=== PATIENT | male | born 1990 | race African-American/Black ===

== ENCOUNTER 2018-06-28 23:11 | Emergency (ER) | payer SELFPAY ==
--- NOTE | 2018-06-28 23:45 | EDM.PDOC ---
ED HPI GENERAL MEDICAL PROBLEM - General Chief Complaint: General Stated Complaint: PT HAS TOOTHACHE Time Seen by Provider: 06/28/18 23:31 - History of Present Illness INITIAL COMMENTS - FREE TEXT/NARRATIVE: HISTORY AND PHYSICAL: History of present illness: The patient is a 28 y/o male who presents with complaints of swelling to the left side of his jaw and pain to that area for the last 1-1/2 months. He says that he had a wisdom tooth removed back in [place] and ever since then he has had pain and swelling to that area which comes and goes. He says that the tooth area and where the tooth was extracted does not hurt him and nothing inside his mouth is causing pain. He says that the pain is mostly on the outside and that the swelling comes and goes. He says that in the morning sometimes there is some fluid and he will manipulated and get some fluid out of it and it will get better and then it seems to keep coming back. He has no systemic complaints of fever chills nausea vomiting and has not followed up for this. It should be noted the patient presented to be seen in the ED with his girlfriend who is also a patient here for an unrelated complaint. His eating and drinking normally and he is only using [id number] pain meds and the pain pills he was given for his tooth extraction when he needs it Review of systems: As per history of present illness and below otherwise all systems reviewed and negative. Past medical history: As per history of present illness and as reviewed below otherwise noncontributory. Surgical history: As per history of present illness and as reviewed below otherwise noncontributory. Social history: No reported history of drug or alcohol abuse. Family history: As per history of present illness and as reviewed below otherwise noncontributory. Physical exam: General: Well-developed well-nourished man who is nontoxic and vital signs are noted by me HEENT: Atraumatic, normocephalic, pupils reactive, negative for conjunctival pallor or scleral icterus, mucous membranes moist, throat clear, neck supple, nontender, trachea midline. Cervical adenopathy or nuchal rigidity and there is no evidence of any dental disease appreciated. At the left lower jaw there is an absence of 217 and there is no soft tissue swelling or gum swelling in this region nor is there any focal swelling or abnormalities seen. At the skin surface of the body and angle of the mandible there is a 3 x 2 cm well demarcated indurated circular-like area which is mobile and rubbery like in texture but not fluctuant. There is tenderness with palpation of this and some erythema which is ill-defined. Lungs: Clear to auscultation, breath sounds equal bilaterally, chest nontender. Heart: S1S2, regular rate and rhythm no overt murmurs Abdomen: Soft, nondistended, nontender. Negative for masses or hepatosplenomegaly. Negative for costovertebral tenderness. Pelvis: Stable nontender. Genitourinary: Deferred. Rectal: Deferred. Extremities: Atraumatic, negative for cords or calf pain. Neurovascular unremarkable. Neuro: Awake, alert, oriented. Cranial nerves II through XII unremarkable. Cerebellum unremarkable. Motor and sensory unremarkable throughout. Exam nonfocal. Diagnostics: [] Therapeutics: [] I discussed with this patient that it is unlikely this is from a dental problem but it is more a soft tissue problem that needs to be treated with antibiotics and followed up by our plastics department. At this point it is not fluctuant and I do not feel incision and drainage is indicated so we'll refer to Dr. Nunez. I advised the patient not to manipulate the area and to use over-the- counter pain management Impression: Left facial cellulitis/recurrent episodic abscess Definitive disposition and diagnosis as appropriate pending reevaluation and review of above. ED ROS GENERAL - Review of Systems Review Of Systems: ROS reveals no pertinent complaints other than HPI. ED EXAM, GENERAL - Physical Exam Exam: See Below (See dictation) Departure - Departure Time of Disposition: 23:44 Disposition: Home, Self-Care 01 Condition: Good Clinical Impression: Cellulitis of face, Abscess of face - Discharge Information Referrals: PCP,None [Primary Care Provider] - Additional Instructions: The following information is given to patients seen in the emergency department who are being discharged to home. This information is to outline your options for follow-up care. We provide all patients seen in our emergency department with a follow-up referral. The need for follow-up, as well as the timing and circumstances, are variable depending upon the specifics of your emergency department visit. If you don't have a primary care physician on staff, we will provide you with a referral. We always advise you to contact your personal physician following an emergency department visit to inform them of the circumstance of the visit and for follow-up with them and/or the need for any referrals to a consulting specialist. The emergency department will also refer you to a specialist when appropriate. This referral assures that you have the opportunity for followup care with a specialist. All of these measure are taken in an effort to provide you with optimal care, which includes your followup. Under all circumstances we always encourage you to contact your private physician who remains a resource for coordinating your care. When calling for followup care, please make the office aware that this follow-up is from your recent emergency room visit. If for any reason you are refused follow-up, please contact the [facility] emergency department at and ask to speak to the emergency department charge nurse. [facility] Specialty clinic-Plastic Surgery and Hand Surgery Professional [address] [id number] Please stop manipulating the area and take antibiotics you have been given tonight, Bactrim, as directed. Please call and schedule a follow-up appointment with our plastic surgeon for further care and evaluation of this and return to ER as needed as discussed. Use [id number] medications or your pain pills that you have at home for pain management.
== END 2018-06-28 23:55 | disposition home or self-care (01) ==
LOC: MW.ED 23:11
DX: L02.01 Cutaneous abscess of face (principal); L03.211 Cellulitis of face
CPT/HCPCS: 99282

== ENCOUNTER 2018-07-26 01:40 | Emergency (ER) | payer SELFPAY ==
[2018-07-26] MEDS ORDERED: Sodium Chloride 0.9% 2.5 ML Syringe FLUSH PRN (01:56)
[2018-07-26] MEDS ORDERED: Ondansetron 4 MG/2 ML SDV IVPUSH ONE (01:56)
[2018-07-26] MEDS ORDERED: Pantoprazole 40 MG Vial IVPUSH ONE (01:56)
[2018-07-26] MEDS ORDERED: Sodium Chloride 0.9% 1,000 ML IV ONE (01:56)
[2018-07-26] MEDS ORDERED: Sodium Chloride 0.9% 10 ML Syringe FLUSH PRN (01:56)
[2018-07-26] MEDS ORDERED: Morphine 2 MG/ML Syringe IVPUSH ONE (01:57)
--- NOTE | 2018-07-26 02:03 | EDM.PDOC ---
ED HPI GENERAL MEDICAL PROBLEM - General Chief Complaint: Gastrointestinal Problem Stated Complaint: VOMITING Time Seen by Provider: 07/26/18 01:48 - History of Present Illness INITIAL COMMENTS - FREE TEXT/NARRATIVE: HISTORY AND PHYSICAL: History of present illness: Patient is a 28-year-old male with a history of HIV positive status who has been on medication and doing very well but he ran out of his meds several months ago and has not been able to get them refilled as it is very challenging to get connected with a specialist. He presents tonight with unrelated complaints of nausea vomiting diarrhea and abdominal pain that started at 7 PM after eating [employer] pizza 2 hours prior. The patient has not had any exotic travel and ate the pizza and says it tasted fine but then about 2 hours later he started getting nausea and then had his first episode of vomiting. He has had a total of 4 episodes of vomiting and one episode of watery diarrhea none of which was black or bloody. He says the prior to eating the pizza he was in his usual state of good health with no systemic complaints of abdominal pain nausea or fever chills chest pain shortness of breath or any other respiratory symptoms and no sore throat. Prior to this he was eating and drinking normally. He says he is very thirsty but he cannot keep anything down. Patient is not dizzy or lightheaded and when I asked him to describe his abdominal discomfort he said it started after the first episode of vomiting and is mostly in the upper abdomen and now it is all over. Review of systems: As per history of present illness and below otherwise all systems reviewed and negative. Past medical history: As per history of present illness and as reviewed below otherwise noncontributory. Surgical history: As per history of present illness and as reviewed below otherwise noncontributory. Social history: No reported history of drug or alcohol abuse. Family history: As per history of present illness and as reviewed below otherwise noncontributory. Physical exam: General: Well-developed well-nourished man who is nontoxic appearing and vital signs are noted by me HEENT: Atraumatic, normocephalic, pupils reactive, negative for conjunctival pallor or scleral icterus, mucous membranes tacky, throat clear, neck supple, nontender, trachea midline. Lungs: Clear to auscultation, breath sounds equal bilaterally, chest nontender. Heart: S1S2, regular rate and rhythm no overt murmurs Abdomen: Soft, nondistended, there is some tympany on percussion and the bowel sounds are hypoactive and there is some diffuse abdominal tenderness more in the upper abdomen without rebound or guarding Negative for masses or hepatosplenomegaly. Negative for costovertebral tenderness. Pelvis: Stable nontender. Genitourinary: Deferred. Rectal: Deferred. Extremities: Atraumatic, full range of motion without defects or deficits Neurovascular unremarkable. Neuro: Awake, alert, oriented. Cranial nerves II through XII unremarkable. Cerebellum unremarkable. Motor and sensory unremarkable throughout. Exam nonfocal. Diagnostics: CBC CMP amylase lipase H. pylori UA Therapeutics: IV fluids Protonix Zofran morphine Patient says he is feeling significantly better and has had not had any nausea or vomiting and has no more abdominal pain. He has not produced any stool here in the ED for sampling. He says he is feeling good and would like to try to go home. He is taking ice chips and I am giving her a popsicle. I will give him Zofran and Bentyl for home and advised him on his diet over the next 24 hours. Impression: Vomiting and diarrhea/abdominal pain improving Definitive disposition and diagnosis as appropriate pending reevaluation and review of above. abdomen Pain Score (Numeric/FACES): 10 - Related Data Allergies Allergy/AdvReac Type Severity Reaction Status Date / Time No Known Allergies Allergy Verified 07/26/18 01:52 Home Meds: Home Meds . [No Known Home Meds] 06/28/18 [History] Past Medical History Cardiovascular History: Reports: None Respiratory History: Reports: Asthma Gastrointestinal History: Reports: None Genitourinary History: Reports: None Musculoskeletal History: Reports: None Neurological History: Reports: None Psychiatric History: Reports: Anxiety, Depression Endocrine/Metabolic History: Reports: None Hematologic History: Reports: None Immunologic History: Reports: HIV Oncologic (Cancer) History: Reports: None Dermatologic History: Reports: None - Infectious Disease History Infectious Disease History: Reports: HIV-Human Immunodeficiency Virus - Past Surgical History Head Surgeries/Procedures: Reports: None HEENT Surgical History: Reports: Oral Surgery Social & Family History - Family History Family Medical History: Noncontributory - Tobacco Use Smoking Status *Q: Never Smoker - Recreational Drug Use Recreational Drug Use: Yes Drug Use in Last 12 Months: Yes Recreational Drug Type: Reports: Marijuana/Hashish Recreational Drug Use Frequency: Socially ED ROS GENERAL - Review of Systems Review Of Systems: ROS reveals no pertinent complaints other than HPI. ED EXAM, GENERAL - Physical Exam Exam: See Below (see dictation) Course - Vital Signs Last Recorded V/S: Last Vital Signs Temp 36.1 C 07/26/18 01:40 Pulse 83 07/26/18 01:40 Resp 18 07/26/18 01:40 BP 125/81 07/26/18 01:40 Pulse Ox 94 L 07/26/18 01:40 - Orders/Labs/Meds Orders: Active Orders 24 hr Category Date Time Status Blood Glucose Check, Bedside [RC] ONETIME Care 07/26/18 01:55 Active CULTURE STOOL + CAMPY+SHIGATOX [RM] Stat Lab 07/26/18 01:56 Ordered UA RFX JOVANI AND CULT IF INDIC [URIN] Stat Lab 07/26/18 01:56 Ordered Sodium Chloride 0.9% [Saline Flush] Med 07/26/18 01:56 Active 10 ml FLUSH ASDIRECTED PRN Sodium Chloride 0.9% [Saline Flush] Med 07/26/18 01:56 Active 2.5 ml FLUSH ASDIRECTED PRN Saline Lock Insert [OM.PC] Stat Oth 07/26/18 01:55 Ordered Medication Orders Sodium Chloride (Saline Flush) 10 ml FLUSH ASDIRECTED PRN PRN Reason: Keep Vein Open Sodium Chloride (Saline Flush) 2.5 ml FLUSH ASDIRECTED PRN PRN Reason: Keep Vein Open Labs: Laboratory Tests 07/26/18 07/26/18 07/26/18 Range/Units 01:55 01:55 01:55 WBC 5.79 (4.0-11.0) K/uL RBC 5.43 (4.50-5.90) M/uL Hgb 15.4 (13.0-17.0) g/dL Hct 45.5 (38.0-50.0) % MCV 83.8 (80.0-98.0) fL MCH 28.4 (27.0-32.0) pg MCHC 33.8 (31.0-37.0) g/dL RDW Std Deviation 37.1 (28.0-62.0) fl RDW Coeff of Freddie 12 (11.0-15.0) % Plt Count 110 L (150-400) K/uL Neut % (Auto) 73.3 (48.0-80.0) % Lymph % (Auto) 19.5 (16.0-40.0) % Candler % (Auto) 5.4 (0.0-15.0) % Eos % (Auto) 1.6 (0.0-7.0) % Baso % (Auto) 0.2 (0.0-1.5) % Neut # (Auto) 4.3 (1.4-5.7) K/uL Lymph # (Auto) 1.1 (0.6-2.4) K/uL Candler # (Auto) 0.3 (0.0-0.8) K/uL Eos # (Auto) 0.1 (0.0-0.7) K/uL Baso # (Auto) 0.0 (0.0-0.1) K/uL Nucleated RBC % 0.0 /100WBC Nucleated RBCs # 0 K/uL Sodium 140 (136-148) mmol/L Potassium 4.1 (3.5-5.1) mmol/L Chloride 104 (98-107) mmol/L Carbon Dioxide 24.9 (21.0-32.0) mmol/L BUN 17 (7.0-18.0) mg/dL Creatinine 1.3 (0.8-1.3) mg/dL Est Cr Clr Drug Dosing 74.90 mL/min Estimated GFR (MDRD) > 60.0 ml/min Glucose 120 H (74-106) mg/dL POC Glucose (60-110) mg/dL Calcium 9.2 (8.5-10.1) mg/dL Total Bilirubin 2.1 H (0.2-1.0) mg/dL AST 105 H (15-37) IU/L ALT 53 (14-63) IU/L Alkaline Phosphatase 70 (46-116) U/L Total Protein 8.8 H (6.4-8.2) g/dL Albumin 4.4 (3.4-5.0) g/dL Globulin 4.4 H (2.6-4.0) g/dL Albumin/Globulin Ratio 1.0 (0.9-1.6) Amylase 74 (25-115) U/L Lipase 93 (73-393) U/L H. pylori IgG Antibody NEGATIVE (NEG) 07/26/18 Range/Units 02:03 WBC (4.0-11.0) K/uL RBC (4.50-5.90) M/uL Hgb (13.0-17.0) g/dL Hct (38.0-50.0) % MCV (80.0-98.0) fL MCH (27.0-32.0) pg MCHC (31.0-37.0) g/dL RDW Std Deviation (28.0-62.0) fl RDW Coeff of Freddie (11.0-15.0) % Plt Count (150-400) K/uL Neut % (Auto) (48.0-80.0) % Lymph % (Auto) (16.0-40.0) % Candler % (Auto) (0.0-15.0) % Eos % (Auto) (0.0-7.0) % Baso % (Auto) (0.0-1.5) % Neut # (Auto) (1.4-5.7) K/uL Lymph # (Auto) (0.6-2.4) K/uL Candler # (Auto) (0.0-0.8) K/uL Eos # (Auto) (0.0-0.7) K/uL Baso # (Auto) (0.0-0.1) K/uL Nucleated RBC % /100WBC Nucleated RBCs # K/uL Sodium (136-148) mmol/L Potassium (3.5-5.1) mmol/L Chloride (98-107) mmol/L Carbon Dioxide (21.0-32.0) mmol/L BUN (7.0-18.0) mg/dL Creatinine (0.8-1.3) mg/dL Est Cr Clr Drug Dosing mL/min Estimated GFR (MDRD) ml/min Glucose (74-106) mg/dL POC Glucose 103 (60-110) mg/dL Calcium (8.5-10.1) mg/dL Total Bilirubin (0.2-1.0) mg/dL AST (15-37) IU/L ALT (14-63) IU/L Alkaline Phosphatase (46-116) U/L Total Protein (6.4-8.2) g/dL Albumin (3.4-5.0) g/dL Globulin (2.6-4.0) g/dL Albumin/Globulin Ratio (0.9-1.6) Amylase (25-115) U/L Lipase (73-393) U/L H. pylori IgG Antibody (NEG) Meds: Medications Generic Name Dose Route Start Last Admin Trade Name Freq PRN Reason Stop Dose Admin Sodium Chloride 10 ml 07/26/18 01:56 Saline Flush FLUSH ASDIRECTED PRN Keep Vein Open Sodium Chloride 2.5 ml 07/26/18 01:56 Saline Flush FLUSH ASDIRECTED PRN Keep Vein Open Discontinued Medications Generic Name Dose Route Start Last Admin Trade Name Freq PRN Reason Stop Dose Admin Sodium Chloride 1,000 mls @ 999 mls/hr 07/26/18 01:56 07/26/18 02:12 Normal Saline IV 07/26/18 02:56 999 mls/hr STAT ONE Administration Sodium Chloride Confirm 07/26/18 02:05 07/26/18 02:21 Normal Saline Administered 07/26/18 02:06 1 mls/hr Dose Administration 20 mls @ as directed .ROUTE .STK-MED ONE Morphine Sulfate 2 mg 07/26/18 01:57 07/26/18 02:17 Morphine IVPUSH 07/26/18 01:58 2 mg ONETIME ONE Administration Ondansetron HCl 4 mg 07/26/18 01:56 07/26/18 02:14 Zofran IVPUSH 07/26/18 01:57 4 mg ONETIME ONE Administration Pantoprazole Sodium 80 mg 07/26/18 01:56 07/26/18 02:20 Protonix Iv IVPUSH 07/26/18 01:57 80 mg .BOLUS ONE Administration Departure - Departure Time of Disposition: 03:28 Disposition: Home, Self-Care 01 Condition: Good Clinical Impression: Vomiting and diarrhea, Abdominal pain - Discharge Information Referrals: PCP,None [Primary Care Provider] - Forms: ED Department Discharge Additional Instructions: The following information is given to patients seen in the emergency department who are being discharged to home. This information is to outline your options for follow-up care. We provide all patients seen in our emergency department with a follow-up referral. The need for follow-up, as well as the timing and circumstances, are variable depending upon the specifics of your emergency department visit. If you don't have a primary care physician on staff, we will provide you with a referral. We always advise you to contact your personal physician following an emergency department visit to inform them of the circumstance of the visit and for follow-up with them and/or the need for any referrals to a consulting specialist. The emergency department will also refer you to a specialist when appropriate. This referral assures that you have the opportunity for followup care with a specialist. All of these measure are taken in an effort to provide you with optimal care, which includes your followup. Under all circumstances we always encourage you to contact your private physician who remains a resource for coordinating your care. When calling for followup care, please make the office aware that this follow-up is from your recent emergency room visit. If for any reason you are refused follow-up, please contact the [facility] emergency department at and ask to speak to the emergency department charge nurse. [facility] Primary care- [place] [address] Push sips of clear liquids and Gatorade as well as bites of bland food is we discussed. Use Zofran and dicyclomine you have been prescribed as needed. Please schedule a follow-up appointment in our clinic with one of our providers or with your provider for further care and evaluation and return to ER as needed and as discussed - My Orders Last 24 Hours: My Active Orders 07/26/18 01:55 Blood Glucose Check, Bedside [RC] ONETIME Saline Lock Insert [OM.PC] Stat 07/26/18 01:56 CULTURE STOOL + CAMPY+SHIGATOX [RM] Stat UA RFX JOVANI AND CULT IF INDIC [URIN] Stat Sodium Chloride 0.9% [Saline Flush] 10 ml FLUSH ASDIRECTED PRN Sodium Chloride 0.9% [Saline Flush] 2.5 ml FLUSH ASDIRECTED PRN - Assessment/Plan Last 24 Hours: My Active Orders 07/26/18 01:55 Blood Glucose Check, Bedside [RC] ONETIME Saline Lock Insert [OM.PC] Stat 07/26/18 01:56 CULTURE STOOL + CAMPY+SHIGATOX [RM] Stat UA RFX JOVANI AND CULT IF INDIC [URIN] Stat Sodium Chloride 0.9% [Saline Flush] 10 ml FLUSH ASDIRECTED PRN Sodium Chloride 0.9% [Saline Flush] 2.5 ml FLUSH ASDIRECTED PRN
[2018-07-26] MEDS ORDERED: Sodium Chloride 0.9% 20 ML ONE (02:05)
[2018-07-26 02:29] LABS: CHLORIDE,CL 104 mmol/L (98-107); SODIUM,NA 140 mmol/L (136-148)
== END 2018-07-26 03:45 | disposition home or self-care (01) ==
LOC: MW.ED 01:40
DX: R19.7 Diarrhea, unspecified (principal); R11.2 Nausea with vomiting, unspecified; R10.9 Unspecified abdominal pain; Z21 Asymptomatic human immunodeficiency virus [HIV] infection status
CPT/HCPCS: 80053; 82150; 82962; 83690; 85025; 86677; 96361; 96374; 96375; 99284; C9113; J2270; J2405; J7040

== ENCOUNTER 2018-08-01 03:53 | Emergency (ER) | payer SELFPAY ==
[2018-08-01] MEDS ORDERED: Sodium Chloride 0.9% 1,000 ML IV ONE (04:03)
[2018-08-01] MEDS ORDERED: Ondansetron 4 MG/2 ML SDV IVPUSH ONE (04:04)
[2018-08-01] MEDS ORDERED: Ketorolac 30 MG/ML SDV IVPUSH ONE (04:04)
[2018-08-01 04:36] LABS: CHLORIDE,CL 102 mmol/L (98-107); SODIUM,NA 137 mmol/L (136-148)
--- NOTE | 2018-08-01 04:44 | CT ---
INDICATION: Abdominal pain TECHNIQUE: CT Abdomen and pelvis without i.v. contrast. Coronal and sagittal reformats were obtained. COMPARISON: None FINDINGS: Lower chest: Unremarkable. Liver: Unremarkable. Spleen: Unremarkable. Pancreas: Unremarkable. Gallbladder: Unremarkable. Kidney: Unremarkable. No kidney or ureteral stones or obstruction seen. Adrenal: Unremarkable. Bowel: Unremarkable. The appendix is normal in appearance and size. Vascular: Unremarkable. Lymph: Mesenteric and ileocolic lymph nodes are present measuring up to 1.2 cm. Peritoneum: Unremarkable. No pneumoperitoneum is seen. Trace pelvic ascites is present and is of uncertain etiology. Pelvis: Unremarkable. Soft tissue: Unremarkable. Bone: Unremarkable for age. IMPRESSIONS: 1. Trace pelvic ascites is present and is of uncertain etiology. 2. Mesenteric and ileocolic lymph nodes are present measuring up to 1.2 cm. Clinical correlation is recommended to exclude mesenteric adenitis. Dictated by Marty Swan MD @ 08/01/2018 4:41:46 AM Please note that all CT scans at this facility use dose modulation, iterative reconstruction, and/or weight-based dosing when appropriate to reduce radiation dose to as low as reasonably achievable. Dictated by: Marty Swan MD @ 08/01/2018 04:41:56 (Electronically Signed)
--- NOTE | 2018-08-01 06:37 | EDM.PDOC ---
ED HPI GENERAL MEDICAL PROBLEM - General Chief Complaint: Abdominal Pain Stated Complaint: EYES ARE YELLOW AND ABD PAIN Time Seen by Provider: 08/01/18 06:32 - History of Present Illness INITIAL COMMENTS - FREE TEXT/NARRATIVE: HISTORY AND PHYSICAL: History of present illness: Patient's a 28-year-old black male history of HIV who presents with a concern of abdominal pain and jaundice he's had similar episodes in the past and was thought to be related to his HIV medication he states he's been off that subsequently and now has had this recurrence. There's been no vomiting no fever chills or other complaints he denies trauma Review of systems: As per history of present illness and below otherwise all systems reviewed and negative. Past medical history: As per history of present illness and as reviewed below otherwise noncontributory. Surgical history: As per history of present illness and as reviewed below otherwise noncontributory. Social history: No reported history of drug or alcohol abuse. Family history: As per history of present illness and as reviewed below otherwise noncontributory. Physical exam: HEENT: Atraumatic, normocephalic, pupils reactive, scleral icterus, mucous membranes moist, throat clear, neck supple, nontender, trachea midline. Lungs: Clear to auscultation, breath sounds equal bilaterally, chest nontender. Heart: S1S2, regular, negative for clicks, rubs, or JVD. Abdomen: Soft, nondistended, diffuse nonlocalized tenderness. Negative for masses or hepatosplenomegaly. Negative for costovertebral tenderness. Pelvis: Stable nontender. Genitourinary: Deferred. Rectal: Deferred. Extremities: Atraumatic, negative for cords or calf pain. Neurovascular unremarkable. Neuro: Awake, alert, oriented. Cranial nerves II through XII unremarkable. Cerebellum unremarkable. Motor and sensory unremarkable throughout. Exam nonfocal. Diagnostics: CBC CMP UA CT abdomen and pelvis Therapeutics: Saline at 125 mL an hour Impression: #1 abdominal pain #2 jaundice 3 history of HIV Definitive disposition and diagnosis as appropriate pending reevaluation and review of above. Left Upper Abdomen Pain Score (Numeric/FACES): 10 - Related Data Allergies Allergy/AdvReac Type Severity Reaction Status Date / Time No Known Allergies Allergy Verified 08/01/18 04:00 Home Meds: Home Meds . [No Known Home Meds] 06/28/18 [History] Past Medical History Cardiovascular History: Reports: None Respiratory History: Reports: Asthma Gastrointestinal History: Reports: None Genitourinary History: Reports: None Musculoskeletal History: Reports: None Neurological History: Reports: None Psychiatric History: Reports: Anxiety, Depression Endocrine/Metabolic History: Reports: None Hematologic History: Reports: None Immunologic History: Reports: HIV Oncologic (Cancer) History: Reports: None Dermatologic History: Reports: None - Infectious Disease History Infectious Disease History: Reports: HIV-Human Immunodeficiency Virus - Past Surgical History Head Surgeries/Procedures: Reports: None HEENT Surgical History: Reports: Oral Surgery Social & Family History - Family History Family Medical History: Noncontributory - Tobacco Use Smoking Status *Q: Never Smoker - Caffeine Use Caffeine Use: Reports: None - Recreational Drug Use Recreational Drug Use: No ED ROS GENERAL - Review of Systems Review Of Systems: ROS reveals no pertinent complaints other than HPI. ED EXAM, GENERAL - Physical Exam Exam: See Below (See dictation) Course - Vital Signs Last Recorded V/S: Last Vital Signs Temp 36.5 C 08/01/18 05:54 Pulse 71 08/01/18 05:54 Resp 18 08/01/18 05:54 BP 116/67 08/01/18 05:54 Pulse Ox 92 L 08/01/18 05:54 - Orders/Labs/Meds Orders: Active Orders 24 hr Category Date Time Status CULTURE STOOL + CAMPY+SHIGATOX [RM] Stat Lab 08/01/18 04:04 Ordered Labs: Laboratory Tests 08/01/18 08/01/18 08/01/18 Range/Units 04:12 04:12 05:00 WBC 8.22 (4.0-11.0) K/uL RBC 3.94 L (4.50-5.90) M/uL Hgb 11.0 L (13.0-17.0) g/dL Hct 33.2 L (38.0-50.0) % MCV 84.3 (80.0-98.0) fL MCH 27.9 (27.0-32.0) pg MCHC 33.1 (31.0-37.0) g/dL RDW Std Deviation 39.5 (28.0-62.0) fl RDW Coeff of Freddie 13 (11.0-15.0) % Plt Count 120 L (150-400) K/uL Neut % (Auto) 42.0 L (48.0-80.0) % Lymph % (Auto) 49.8 H (16.0-40.0) % [place] % (Auto) 6.3 (0.0-15.0) % Eos % (Auto) 1.5 (0.0-7.0) % Baso % (Auto) 0.4 (0.0-1.5) % Neut # (Auto) 3.5 (1.4-5.7) K/uL Lymph # (Auto) 4.1 H (0.6-2.4) K/uL [place] # (Auto) 0.5 (0.0-0.8) K/uL Eos # (Auto) 0.1 (0.0-0.7) K/uL Baso # (Auto) 0.0 (0.0-0.1) K/uL Nucleated RBC % 0.0 /100WBC Nucleated RBCs # 0 K/uL Sodium 137 (136-148) mmol/L Potassium 3.8 (3.5-5.1) mmol/L Chloride 102 (98-107) mmol/L Carbon Dioxide 21.8 (21.0-32.0) mmol/L BUN 24 H (7.0-18.0) mg/dL Creatinine 1.4 H (0.8-1.3) mg/dL Est Cr Clr Drug Dosing 69.55 mL/min Estimated GFR (MDRD) > 60.0 ml/min Glucose 97 (74-106) mg/dL Calcium 9.4 (8.5-10.1) mg/dL Total Bilirubin 14.5 H (0.2-1.0) mg/dL AST 262 H (15-37) IU/L ALT 85 H (14-63) IU/L Alkaline Phosphatase 77 (46-116) U/L Total Protein 8.1 (6.4-8.2) g/dL Albumin 4.4 (3.4-5.0) g/dL Globulin 3.7 (2.6-4.0) g/dL Albumin/Globulin Ratio 1.2 (0.9-1.6) Urine Color YELLOW Urine Appearance HAZY Urine pH 6.5 (5.0-8.0) Ur Specific [place] 1.015 (1.001-1.035) Urine Protein 30 H (NEGATIVE) mg/dL Urine Glucose (UA) NEGATIVE (NEGATIVE) mg/dL Urine Ketones TRACE H (NEGATIVE) mg/dL Urine Occult Blood LARGE H (NEGATIVE) Urine Nitrite NEGATIVE (NEGATIVE) Urine Bilirubin SMALL H (NEGATIVE) Urine Ictotest NEGATIVE Urine Urobilinogen 4.0 H (<2.0) EU/dL Ur Leukocyte Esterase NEGATIVE (NEGATIVE) Urine RBC 1-2 (0-2/HPF) Urine WBC 0-2 (0-5/HPF) Ur Epithelial Cells RARE (NONE-FEW) Urine Bacteria FEW (NEGATIVE) Meds: Medications Discontinued Medications Generic Name Dose Route Start Last Admin Trade Name Freq PRN Reason Stop Dose Admin Sodium Chloride 1,000 mls @ 999 mls/hr 08/01/18 04:03 08/01/18 04:15 Normal Saline IV 08/01/18 05:03 999 mls/hr .Bolus ONE Administration Ketorolac Tromethamine 30 mg 08/01/18 04:04 08/01/18 04:15 Toradol IVPUSH 08/01/18 04:05 30 mg ONETIME ONE Administration Ondansetron HCl 4 mg 08/01/18 04:04 08/01/18 04:15 Zofran IVPUSH 08/01/18 04:05 4 mg ONETIME ONE Administration Departure - Departure Time of Disposition: 06:36 Disposition: DC/Tfer to Acute Hospital 02 Condition: Good Clinical Impression: Abdominal pain, Jaundice, History of HIV infection - Discharge Information Referrals: PCP,None [Primary Care Provider] - - My Orders Last 24 Hours: My Active Orders 08/01/18 04:04 CULTURE STOOL + CAMPY+SHIGATOX [RM] Stat - Assessment/Plan Last 24 Hours: My Active Orders 08/01/18 04:04 CULTURE STOOL + CAMPY+SHIGATOX [RM] Stat
[2018-08-01] MEDS ORDERED: Morphine 2 MG/ML Syringe IVPUSH ONE (09:07)
[2018-08-01] MEDS ORDERED: Sodium Chloride 0.9% 1,000 ML IV SCH (09:45)
[2018-08-01] MEDS ORDERED: Albuterol/Ipratropium 3.0-0.5 MG/3 ML Neb Soln NEB ONE (11:21)
--- NOTE | 2018-08-01 12:16 | CR ---
INDICATION: Shortness of breath. TECHNIQUE: PA and lateral chest x-ray. COMPARISON: CT abdomen and pelvis earlier today. FINDINGS: Heart is mildly enlarged. Lungs are clear without infiltrate or consolidation. Pulmonary vascularity within normal limits. Chest otherwise negative without acute disease. Dictated by Eleazar Morelos MD @ Aug 01 2018 12:14PM Signed by Dr. Eleazar Morelos @ Aug 01 2018 12:14PM
[2018-08-01] MEDS ORDERED: Sulfamethoxazole/Trimethoprim 800-160 MG Tab PO ONE (12:54)
== END 2018-08-01 13:00 ==
LOC: MW.ED 03:53
DX: R17 Unspecified jaundice (principal); B20 Human immunodeficiency virus [HIV] disease
CPT/HCPCS: 71046; 74176; 80053; 81001; 83615; 85025; 94640; 96361; 96374; 96375; 99285; A9270; J1885; J2270; J2405; J7040; 99283; J7620-GY

== ENCOUNTER 2018-09-09 15:13 | Emergency (ER) | payer SELFPAY ==
--- NOTE | 2018-09-09 15:31 | EDM.PDOC ---
ED HPI GENERAL MEDICAL PROBLEM - General Chief Complaint: Abdominal Pain Stated Complaint: VOMITING Time Seen by Provider: 09/09/18 15:26 - History of Present Illness INITIAL COMMENTS - FREE TEXT/NARRATIVE: HISTORY AND PHYSICAL: History of present illness: Patient 28-year-old black male with history of HIV and history of chronic intermittent abdominal pain presents with concerned abdominal pain no vomiting no diarrhea he's had some nausea denies chest pain shortness of breath or other concern. Review of systems: As per history of present illness and below otherwise all systems reviewed and negative. Past medical history: As per history of present illness and as reviewed below otherwise noncontributory. Surgical history: As per history of present illness and as reviewed below otherwise noncontributory. Social history: No reported history of drug or alcohol abuse. Family history: As per history of present illness and as reviewed below otherwise noncontributory. Physical exam: HEENT: Atraumatic, normocephalic, pupils reactive, negative for conjunctival pallor or scleral icterus, mucous membranes moist, throat clear, neck supple, nontender, trachea midline. Lungs: Clear to auscultation, breath sounds equal bilaterally, chest nontender. Heart: S1S2, regular, negative for clicks, rubs, or JVD. Abdomen: Soft, nondistended, nontender. Negative for masses or hepatosplenomegaly. Negative for costovertebral tenderness. Pelvis: Stable nontender. Genitourinary: Deferred. Rectal: Deferred. Extremities: Atraumatic, negative for cords or calf pain. Neurovascular unremarkable. Neuro: Awake, alert, oriented. Cranial nerves II through XII unremarkable. Cerebellum unremarkable. Motor and sensory unremarkable throughout. Exam nonfocal. Diagnostics: CBC CMP abdominal series with chest x-ray UA lipase Therapeutics: Saline 1 L bolus Toradol 30 mg IV Zofran 4 mg IV Impression: #1 history of HIV #2 medical screening exam #3 chronic intermittent abdominal pain Definitive disposition and diagnosis as appropriate pending reevaluation and review of above. Abdomen Pain Score (Numeric/FACES): 10 - Related Data Allergies Allergy/AdvReac Type Severity Reaction Status Date / Time No Known Allergies Allergy Verified 09/09/18 15:24 Home Meds: Home Meds . [No Known Home Meds] 06/28/18 [History] Past Medical History Cardiovascular History: Reports: None Respiratory History: Reports: Asthma Gastrointestinal History: Reports: None Genitourinary History: Reports: None Musculoskeletal History: Reports: None Neurological History: Reports: None Psychiatric History: Reports: Anxiety, Depression Endocrine/Metabolic History: Reports: None Hematologic History: Reports: None Immunologic History: Reports: HIV Oncologic (Cancer) History: Reports: None Dermatologic History: Reports: None - Infectious Disease History Infectious Disease History: Reports: HIV-Human Immunodeficiency Virus - Past Surgical History Head Surgeries/Procedures: Reports: None HEENT Surgical History: Reports: Oral Surgery Social & Family History - Family History Family Medical History: Noncontributory - Tobacco Use Smoking Status *Q: Unknown Ever Smoked Second Hand Smoke Exposure: No - Caffeine Use Caffeine Use: Reports: Coffee - Recreational Drug Use Recreational Drug Use: No ED ROS GENERAL - Review of Systems Review Of Systems: ROS reveals no pertinent complaints other than HPI. ED EXAM, GENERAL - Physical Exam Exam: See Below (See dictation) Course - Vital Signs Last Recorded V/S: Last Vital Signs Temp 35.6 C 09/09/18 15:24 Pulse 74 09/09/18 15:24 Resp 16 09/09/18 15:24 BP 108/74 09/09/18 15:24 Pulse Ox 100 09/09/18 15:24 - Orders/Labs/Meds Orders: Active Orders 24 hr Category Date Time Status UA RFX JOVANI AND CULT IF INDIC [URIN] Stat Lab 09/09/18 15:33 Ordered Labs: Laboratory Tests 09/09/18 09/09/18 Range/Units 15:53 15:53 WBC 3.07 L (4.0-11.0) K/uL RBC 4.73 (4.50-5.90) M/uL Hgb 13.2 (13.0-17.0) g/dL Hct 40.3 (38.0-50.0) % MCV 85.2 (80.0-98.0) fL MCH 27.9 (27.0-32.0) pg MCHC 32.8 (31.0-37.0) g/dL RDW Std Deviation 38.4 (28.0-62.0) fl RDW Coeff of Freddie 12 (11.0-15.0) % Plt Count 76 L (150-400) K/uL MPV (7.40-12.00) fL Add Manual Diff YES Neutrophils % (Manual) 25 L (48.0-80.0) % Lymphocytes % (Manual) 60 H (16.0-40.0) % Monocytes % (Manual) 13 (0.0-15.0) % Eosinophils % (Manual) 2 (0.0-7.0) % Nucleated RBC % 0.0 /100WBC Absolute Seg Neuts 0.8 L (1.4-5.7) Lymphocytes # (Manual) 1.8 (0.6-2.4) Monocytes # (Manual) 0.4 (0.0-0.8) Eosinophils # (Manual) 0.1 (0.0-0.7) Nucleated RBCs # 0 K/uL Reactive Lymphocytes FEW Platelet Estimate DECREASED Plt Morphology Comment Sodium 141 (136-148) mmol/L Potassium 3.8 (3.5-5.1) mmol/L Chloride 108 H (98-107) mmol/L Carbon Dioxide 28.6 (21.0-32.0) mmol/L BUN 4 L (7.0-18.0) mg/dL Creatinine 1.2 (0.8-1.3) mg/dL Est Cr Clr Drug Dosing 81.15 mL/min Estimated GFR (MDRD) > 60.0 ml/min Glucose 93 (74-106) mg/dL Calcium 8.4 L (8.5-10.1) mg/dL Total Bilirubin 0.9 (0.2-1.0) mg/dL AST 26 (15-37) IU/L ALT 20 (14-63) IU/L Alkaline Phosphatase 63 (46-116) U/L Total Protein 7.8 (6.4-8.2) g/dL Albumin 4.0 (3.4-5.0) g/dL Globulin 3.8 (2.6-4.0) g/dL Albumin/Globulin Ratio 1.1 (0.9-1.6) Lipase 76 (73-393) U/L Meds: Medications Discontinued Medications Generic Name Dose Route Start Last Admin Trade Name Freq PRN Reason Stop Dose Admin Sodium Chloride 1,000 mls @ 999 mls/hr 09/09/18 15:32 09/09/18 17:01 Normal Saline IV 09/09/18 16:32 999 mls/hr .Bolus ONE Administration Ketorolac Tromethamine 30 mg 09/09/18 15:33 09/09/18 17:04 Toradol IVPUSH 09/09/18 15:34 30 mg ONETIME ONE Administration Ondansetron HCl 4 mg 09/09/18 15:33 09/09/18 17:02 Zofran IVPUSH 09/09/18 15:34 4 mg ONETIME ONE Administration Departure - Departure Time of Disposition: 17:30 Disposition: Home, Self-Care 01 Condition: Good Clinical Impression: Chronic abdominal pain, Encounter for medical screening examination - Discharge Information Referrals: PCP,None [Primary Care Provider] - Forms: ED Department Discharge Additional Instructions: The following information is given to patients seen in the emergency department who are being discharged to home. This information is to outline your options for follow-up care. We provide all patients seen in our emergency department with a follow-up referral. The need for follow-up, as well as the timing and circumstances, are variable depending upon the specifics of your emergency department visit. If you don't have a primary care physician on staff, we will provide you with a referral. We always advise you to contact your personal physician following an emergency department visit to inform them of the circumstance of the visit and for follow-up with them and/or the need for any referrals to a consulting specialist. The emergency department will also refer you to a specialist when appropriate. This referral assures that you have the opportunity for followup care with a specialist. All of these measure are taken in an effort to provide you with optimal care, which includes your followup. Under all circumstances we always encourage you to contact your private physician who remains a resource for coordinating your care. When calling for followup care, please make the office aware that this follow-up is from your recent emergency room visit. If for any reason you are refused follow-up, please contact the [facility] emergency department at and asked to speak to the emergency department charge nurse. [facility] Professional Building [address] [place] [address], [address] [place] [address] Follow-up Gen. surgery about as needed as discussed follow-up private medical doctor as discussed and return as needed as discussed - My Orders Last 24 Hours: My Active Orders 09/09/18 15:33 UA RFX JOVANI AND CULT IF INDIC [URIN] Stat - Assessment/Plan Last 24 Hours: My Active Orders 09/09/18 15:33 UA RFX JOVANI AND CULT IF INDIC [URIN] Stat
[2018-09-09] MEDS ORDERED: Sodium Chloride 0.9% 1,000 ML IV ONE (15:32)
[2018-09-09] MEDS ORDERED: Ketorolac 30 MG/ML SDV IVPUSH ONE (15:33)
[2018-09-09] MEDS ORDERED: Ondansetron 4 MG/2 ML SDV IVPUSH ONE (15:33)
--- NOTE | 2018-09-09 16:18 | CR ---
EXAMINATION: Abdominal series HISTORY: Pain COMPARISON: CT dated 08/01/2018 TECHNIQUE: PA chest and AP and upright views of the abdomen FINDINGS: The lungs are clear without focal consolidation. No pleural effusion or pneumothorax. Cardiomediastinal silhouette is normal. There are a few minimally prominent loops of small bowel however stool and gas is noted within the colon and rectum. Visualized osseous structures appear normal. SI joints are symmetric. The iliopectineal lines are intact. No Abnormal calcifications. IMPRESSION: 1. Nonspecific bowel gas pattern without definitive evidence of obstruction.
[2018-09-09 16:30] LABS: CHLORIDE,CL 108 mmol/L (98-107); SODIUM,NA 141 mmol/L (136-148)
== END 2018-09-09 17:59 | disposition home or self-care (01) ==
LOC: MW.ED 15:13
DX: R10.9 Unspecified abdominal pain (principal); R11.10 Vomiting, unspecified; J45.909 Unspecified asthma, uncomplicated; Z21 Asymptomatic human immunodeficiency virus [HIV] infection status
CPT/HCPCS: 36415; 74022; 80053; 83690; 85025; 96361; 96374; 96375; 99284; J1885; J2405; J7040

== ENCOUNTER 2018-09-30 11:44 | Emergency (ER) | payer SELFPAY ==
--- NOTE | 2018-09-30 11:56 | EDM.PDOC ---
ED HPI GENERAL MEDICAL PROBLEM - General Chief Complaint: Abdominal Pain Stated Complaint: SHARP AB PAIN Time Seen by Provider: 09/30/18 11:48 - History of Present Illness INITIAL COMMENTS - FREE TEXT/NARRATIVE: HISTORY AND PHYSICAL: History of present illness: Patient's 28-year-old black male history of chronic intermittent abdominal pain was been seen by a specialist was pointing endoscopy pending clearance by private medical doctor in the need for a viral load prior to endoscopy. This is the same pain which he has had off and on for quite some time he describes it at times as a cramping pain at other times sharp additional fever chills vomiting diarrhea or other complaints. Review of systems: As per history of present illness and below otherwise all systems reviewed and negative. Past medical history: As per history of present illness and as reviewed below otherwise noncontributory. Surgical history: As per history of present illness and as reviewed below otherwise noncontributory. Social history: No reported history of drug or alcohol abuse. Family history: As per history of present illness and as reviewed below otherwise noncontributory. Physical exam: HEENT: Atraumatic, normocephalic, pupils reactive, negative for conjunctival pallor or scleral icterus, mucous membranes moist, throat clear, neck supple, nontender, trachea midline. Lungs: Clear to auscultation, breath sounds equal bilaterally, chest nontender. Heart: S1S2, regular, negative for clicks, rubs, or JVD. Abdomen: Soft, nondistended, nontender. Negative for masses or hepatosplenomegaly. Negative for costovertebral tenderness. Pelvis: Stable nontender. Genitourinary: Deferred. Rectal: Deferred. Extremities: Atraumatic, negative for cords or calf pain. Neurovascular unremarkable. Neuro: Awake, alert, oriented. Cranial nerves II through XII unremarkable. Cerebellum unremarkable. Motor and sensory unremarkable throughout. Exam nonfocal. Diagnostics: CBC CMP and lipase UA EtOH urine drug screen Therapeutics: None Impression: #1 chronic intermittent abdominal pain #2 medical screening exam Definitive disposition and diagnosis as appropriate pending reevaluation and review of above. Abdomen Pain Score (Numeric/FACES): 10 - Related Data Allergies Allergy/AdvReac Type Severity Reaction Status Date / Time No Known Allergies Allergy Verified 09/30/18 11:45 Home Meds: Home Meds . [No Known Home Meds] 06/28/18 [History] Past Medical History Cardiovascular History: Reports: None Respiratory History: Reports: Asthma Gastrointestinal History: Reports: None Genitourinary History: Reports: None Musculoskeletal History: Reports: None Neurological History: Reports: None Psychiatric History: Reports: Anxiety, Depression Endocrine/Metabolic History: Reports: None Hematologic History: Reports: None Immunologic History: Reports: HIV Oncologic (Cancer) History: Reports: None Dermatologic History: Reports: None - Infectious Disease History Infectious Disease History: Reports: HIV-Human Immunodeficiency Virus - Past Surgical History Head Surgeries/Procedures: Reports: None HEENT Surgical History: Reports: Oral Surgery Social & Family History - Family History Family Medical History: Noncontributory - Tobacco Use Smoking Status *Q: Never Smoker Second Hand Smoke Exposure: No - Caffeine Use Caffeine Use: Reports: Energy Drinks - Recreational Drug Use Recreational Drug Use: No ED ROS GENERAL - Review of Systems Review Of Systems: ROS reveals no pertinent complaints other than HPI. ED EXAM, GENERAL - Physical Exam Exam: See Below (See dictation) Course - Vital Signs Last Recorded V/S: Last Vital Signs Temp 35.6 C 09/30/18 11:45 Pulse 50 L 09/30/18 11:45 Resp 20 09/30/18 11:45 BP 125/84 09/30/18 11:45 Pulse Ox 100 09/30/18 11:45 - Orders/Labs/Meds Labs: Laboratory Tests 09/30/18 09/30/18 09/30/18 Range/Units 11:55 11:55 12:05 WBC 5.26 (4.0-11.0) K/uL RBC 5.03 (4.50-5.90) M/uL Hgb 13.5 (13.0-17.0) g/dL Hct 40.5 (38.0-50.0) % MCV 80.5 (80.0-98.0) fL MCH 26.8 L (27.0-32.0) pg MCHC 33.3 (31.0-37.0) g/dL RDW Std Deviation 36.5 (28.0-62.0) fl RDW Coeff of Freddie 13 (11.0-15.0) % Plt Count 132 L (150-400) K/uL Neut % (Auto) 13.8 L (48.0-80.0) % Lymph % (Auto) 77.4 H (16.0-40.0) % [place] % (Auto) 5.5 (0.0-15.0) % Eos % (Auto) 2.9 (0.0-7.0) % Baso % (Auto) 0.4 (0.0-1.5) % Neut # (Auto) 0.7 L (1.4-5.7) K/uL Lymph # (Auto) 4.1 H (0.6-2.4) K/uL [place] # (Auto) 0.3 (0.0-0.8) K/uL Eos # (Auto) 0.2 (0.0-0.7) K/uL Baso # (Auto) 0.0 (0.0-0.1) K/uL Nucleated RBC % 0.0 /100WBC Nucleated RBCs # 0 K/uL INR Sodium (136-148) mmol/L Potassium (3.5-5.1) mmol/L Chloride (98-107) mmol/L Carbon Dioxide (21.0-32.0) mmol/L BUN (7.0-18.0) mg/dL Creatinine (0.8-1.3) mg/dL Est Cr Clr Drug Dosing mL/min Estimated GFR (MDRD) ml/min Glucose (74-106) mg/dL Calcium (8.5-10.1) mg/dL Total Bilirubin (0.2-1.0) mg/dL AST (15-37) IU/L ALT (14-63) IU/L Alkaline Phosphatase (46-116) U/L Total Protein (6.4-8.2) g/dL Albumin (3.4-5.0) g/dL Globulin (2.6-4.0) g/dL Albumin/Globulin Ratio (0.9-1.6) Lipase (73-393) U/L Urine Color YELLOW Urine Appearance CLEAR Urine pH 6.0 (5.0-8.0) Ur Specific [place] 1.025 (1.001-1.035) Urine Protein NEGATIVE (NEGATIVE) mg/dL Urine Glucose (UA) NEGATIVE (NEGATIVE) mg/dL Urine Ketones NEGATIVE (NEGATIVE) mg/dL Urine Occult Blood NEGATIVE (NEGATIVE) Urine Nitrite NEGATIVE (NEGATIVE) Urine Bilirubin NEGATIVE (NEGATIVE) Urine Urobilinogen 1.0 (<2.0) EU/dL Ur Leukocyte Esterase NEGATIVE (NEGATIVE) Urine Opiates Screen NEGATIVE (NEGATIVE) Ur Oxycodone Screen NEGATIVE (NEGATIVE) Urine Methadone Screen NEGATIVE (NEGATIVE) Ur Barbiturates Screen NEGATIVE (NEGATIVE) Ur Phencyclidine Scrn NEGATIVE (NEGATIVE) Ur Amphetamine Screen NEGATIVE (NEGATIVE) U Methamphetamines Scrn NEGATIVE (NEGATIVE) U Benzodiazepines Scrn NEGATIVE (NEGATIVE) U Cocaine Metab Screen NEGATIVE (NEGATIVE) U Marijuana (THC) Screen NEGATIVE (NEGATIVE) Ethyl Alcohol mg/dL 09/30/18 09/30/18 Range/Units 12:05 12:05 WBC (4.0-11.0) K/uL RBC (4.50-5.90) M/uL Hgb (13.0-17.0) g/dL Hct (38.0-50.0) % MCV (80.0-98.0) fL MCH (27.0-32.0) pg MCHC (31.0-37.0) g/dL RDW Std Deviation (28.0-62.0) fl RDW Coeff of Freddie (11.0-15.0) % Plt Count (150-400) K/uL Neut % (Auto) (48.0-80.0) % Lymph % (Auto) (16.0-40.0) % [place] % (Auto) (0.0-15.0) % Eos % (Auto) (0.0-7.0) % Baso % (Auto) (0.0-1.5) % Neut # (Auto) (1.4-5.7) K/uL Lymph # (Auto) (0.6-2.4) K/uL [place] # (Auto) (0.0-0.8) K/uL Eos # (Auto) (0.0-0.7) K/uL Baso # (Auto) (0.0-0.1) K/uL Nucleated RBC % /100WBC Nucleated RBCs # K/uL INR 1.06 Sodium 143 (136-148) mmol/L Potassium 4.0 (3.5-5.1) mmol/L Chloride 107 (98-107) mmol/L Carbon Dioxide 26.6 (21.0-32.0) mmol/L BUN 14 (7.0-18.0) mg/dL Creatinine 1.3 (0.8-1.3) mg/dL Est Cr Clr Drug Dosing 74.90 mL/min Estimated GFR (MDRD) > 60.0 ml/min Glucose 102 (74-106) mg/dL Calcium 9.2 (8.5-10.1) mg/dL Total Bilirubin 1.4 H (0.2-1.0) mg/dL AST 50 H (15-37) IU/L ALT 28 (14-63) IU/L Alkaline Phosphatase 80 (46-116) U/L Total Protein 8.0 (6.4-8.2) g/dL Albumin 4.0 (3.4-5.0) g/dL Globulin 4.0 (2.6-4.0) g/dL Albumin/Globulin Ratio 1.0 (0.9-1.6) Lipase 192 (73-393) U/L Urine Color Urine Appearance Urine pH (5.0-8.0) Ur Specific [place] (1.001-1.035) Urine Protein (NEGATIVE) mg/dL Urine Glucose (UA) (NEGATIVE) mg/dL Urine Ketones (NEGATIVE) mg/dL Urine Occult Blood (NEGATIVE) Urine Nitrite (NEGATIVE) Urine Bilirubin (NEGATIVE) Urine Urobilinogen (<2.0) EU/dL Ur Leukocyte Esterase (NEGATIVE) Urine Opiates Screen (NEGATIVE) Ur Oxycodone Screen (NEGATIVE) Urine Methadone Screen (NEGATIVE) Ur Barbiturates Screen (NEGATIVE) Ur Phencyclidine Scrn (NEGATIVE) Ur Amphetamine Screen (NEGATIVE) U Methamphetamines Scrn (NEGATIVE) U Benzodiazepines Scrn (NEGATIVE) U Cocaine Metab Screen (NEGATIVE) U Marijuana (THC) Screen (NEGATIVE) Ethyl Alcohol < 3.0 mg/dL Meds: Medications Discontinued Medications Generic Name Dose Route Start Last Admin Trade Name Freq PRN Reason Stop Dose Admin Al Hydroxide/Mg Hydroxide 15 0 ml 09/30/18 12:04 09/30/18 12:11 ml/ Lidocaine HCl 5 ml PO 09/30/18 12:05 25 each ONETIME ONE Administration Departure - Departure Time of Disposition: 13:10 Disposition: Home, Self-Care 01 Condition: Good Clinical Impression: Chronic abdominal pain, History of HIV infection - Discharge Information Forms: ED Department Discharge Additional Instructions: The following information is given to patients seen in the emergency department who are being discharged to home. This information is to outline your options for follow-up care. We provide all patients seen in our emergency department with a follow-up referral. The need for follow-up, as well as the timing and circumstances, are variable depending upon the specifics of your emergency department visit. If you don't have a primary care physician on staff, we will provide you with a referral. We always advise you to contact your personal physician following an emergency department visit to inform them of the circumstance of the visit and for follow-up with them and/or the need for any referrals to a consulting specialist. The emergency department will also refer you to a specialist when appropriate. This referral assures that you have the opportunity for followup care with a specialist. All of these measure are taken in an effort to provide you with optimal care, which includes your followup. Under all circumstances we always encourage you to contact your private physician who remains a resource for coordinating your care. When calling for followup care, please make the office aware that this follow-up is from your recent emergency room visit. If for any reason you are refused follow-up, please contact the [facility] emergency department at and asked to speak to the emergency department charge nurse. Keep scheduled follow-up says discussed return as needed as discussed
[2018-09-30] MEDS ORDERED: Alum Hydrox/Mag Hydrox/Simeth 15 ML, Lidocaine 2% 5 ML PO ONE ×2 (12:04)
[2018-09-30 12:42] LABS: CHLORIDE,CL 107 mmol/L (98-107); SODIUM,NA 143 mmol/L (136-148)
== END 2018-09-30 13:15 | disposition home or self-care (01) ==
LOC: MW.ED 11:44
DX: R10.9 Unspecified abdominal pain (principal); Z21 Asymptomatic human immunodeficiency virus [HIV] infection status
CPT/HCPCS: 36415; 80053; 80305; 81003; 83690; 85025; 85610; 99284; A9270; G0480

== ENCOUNTER 2018-10-03 05:18 | Emergency (ER) | payer SELFPAY ==
[2018-10-03] MEDS ORDERED: Ondansetron 4 MG/2 ML SDV IVPUSH ONE (05:21)
[2018-10-03] MEDS ORDERED: Ketorolac 30 MG/ML SDV IVPUSH ONE (05:21)
[2018-10-03] MEDS ORDERED: Sodium Chloride 0.9% 1,000 ML IV ONE (05:21)
[2018-10-03] MEDS ORDERED: Ondansetron 4 MG/2 ML SDV ONE (05:37)
[2018-10-03 05:56] LABS: CHLORIDE,CL 105 mmol/L (98-107); SODIUM,NA 140 mmol/L (136-148)
[2018-10-03] MEDS ORDERED: Iopamidol 755 Mg/ML 100 ML Bottle IVPUSH ONE (06:33)
--- NOTE | 2018-10-03 06:42 | EDM.PDOC ---
ED HPI GENERAL MEDICAL PROBLEM - General Chief Complaint: Abdominal Pain Stated Complaint: ABDOMINAL PAIN Time Seen by Provider: 10/03/18 06:41 Source of Information: Reports: Patient - History of Present Illness INITIAL COMMENTS - FREE TEXT/NARRATIVE: HISTORY AND PHYSICAL: History of present illness: []Patient is had several visits over the last few months for abdominal pain, he presents with pain again which began last night with one episode of vomiting no fever chills sweats no chest pain shortness breath headache dizziness or palpitation no bowel or urine symptoms History of chronic abdominal pain See previous notes Review of systems: As per history of present illness and below otherwise all systems reviewed and negative. Past medical history: As per history of present illness and as reviewed below otherwise noncontributory. Surgical history: As per history of present illness and as reviewed below otherwise noncontributory. Social history: No reported history of drug or alcohol abuse. Family history: As per history of present illness and as reviewed below otherwise noncontributory. Physical exam: HEENT: Atraumatic, normocephalic, pupils reactive, negative for conjunctival pallor or scleral icterus, mucous membranes moist, throat clear, neck supple, nontender, trachea midline. Lungs: Clear to auscultation, breath sounds equal bilaterally, chest nontender. Heart: S1S2, regular, negative for clicks, rubs, or JVD. Abdomen: Soft, nondistended, diffuse nonfocal tenderness on deep palpation Negative for masses or hepatosplenomegaly. Negative for costovertebral tenderness. Pelvis: Stable nontender. Genitourinary: Deferred. Rectal: Deferred. Extremities: Atraumatic, negative for cords or calf pain. Neurovascular unremarkable. Neuro: Awake, alert, oriented. Cranial nerves II through XII unremarkable. Cerebellum unremarkable. Motor and sensory unremarkable throughout. Exam nonfocal. Diagnostics: [CBC CMP UA lipase CRP CT abdomen pelvis with contrast Abdomen limitedUltrasound ] Therapeutics: [ normal saline Toradol Zofran ] Impression: [ chronic abdominal pain ] Chronic history at baseline Definitive disposition and diagnosis as appropriate pending reevaluation and review of above. Abdomen Pain Score (Numeric/FACES): 10 - Related Data Allergies Allergy/AdvReac Type Severity Reaction Status Date / Time No Known Allergies Allergy Verified 10/03/18 05:31 Home Meds: Home Meds . [No Known Home Meds] 06/28/18 [History] Past Medical History Cardiovascular History: Reports: None Respiratory History: Reports: Asthma Gastrointestinal History: Reports: None Genitourinary History: Reports: None Musculoskeletal History: Reports: None Neurological History: Reports: None Psychiatric History: Reports: Anxiety, Depression Endocrine/Metabolic History: Reports: None Hematologic History: Reports: None Immunologic History: Reports: HIV Oncologic (Cancer) History: Reports: None Dermatologic History: Reports: None - Infectious Disease History Infectious Disease History: Reports: HIV-Human Immunodeficiency Virus - Past Surgical History Head Surgeries/Procedures: Reports: None HEENT Surgical History: Reports: Oral Surgery Social & Family History - Family History Family Medical History: Noncontributory - Tobacco Use Smoking Status *Q: Never Smoker - Caffeine Use Caffeine Use: Reports: Energy Drinks - Recreational Drug Use Recreational Drug Use: No ED ROS GENERAL - Review of Systems Review Of Systems: See Below ED EXAM, GENERAL - Physical Exam Exam: See Below Course - Vital Signs Last Recorded V/S: Last Vital Signs Temp 97.3 F 10/03/18 05:29 Pulse 72 10/03/18 06:45 Resp 18 10/03/18 06:45 BP 120/74 10/03/18 06:45 Pulse Ox 98 10/03/18 06:45 - Orders/Labs/Meds Orders: Active Orders 24 hr Category Date Time Status Abdomen Ltd [US] Stat Exams 10/03/18 06:39 Ordered Abdomen Pelvis w Cont [CT] Stat Exams 10/03/18 05:43 Taken UA RFX JOVANI AND CULT IF INDIC [URIN] Stat Lab 10/03/18 06:45 Ordered Labs: Laboratory Tests 10/03/18 10/03/18 10/03/18 Range/Units 05:28 05:28 05:28 WBC 6.84 (4.0-11.0) K/uL RBC 4.89 (4.50-5.90) M/uL Hgb 13.2 (13.0-17.0) g/dL Hct 39.1 (38.0-50.0) % MCV 80.0 (80.0-98.0) fL MCH 27.0 (27.0-32.0) pg MCHC 33.8 (31.0-37.0) g/dL RDW Std Deviation 35.9 (28.0-62.0) fl RDW Coeff of Freddie 12 (11.0-15.0) % Plt Count 74 L (150-400) K/uL Neut % (Auto) 41.4 L (48.0-80.0) % Lymph % (Auto) 52.8 H (16.0-40.0) % [place] % (Auto) 4.8 (0.0-15.0) % Eos % (Auto) 0.7 (0.0-7.0) % Baso % (Auto) 0.3 (0.0-1.5) % Neut # (Auto) 2.8 (1.4-5.7) K/uL Lymph # (Auto) 3.6 H (0.6-2.4) K/uL [place] # (Auto) 0.3 (0.0-0.8) K/uL Eos # (Auto) 0.1 (0.0-0.7) K/uL Baso # (Auto) 0.0 (0.0-0.1) K/uL Nucleated RBC % 0.0 /100WBC Nucleated RBCs # 0 K/uL Sodium 140 (136-148) mmol/L Potassium 3.4 L (3.5-5.1) mmol/L Chloride 105 (98-107) mmol/L Carbon Dioxide 28.3 (21.0-32.0) mmol/L BUN 15 (7.0-18.0) mg/dL Creatinine 1.3 (0.8-1.3) mg/dL Est Cr Clr Drug Dosing 74.90 mL/min Estimated GFR (MDRD) > 60.0 ml/min Glucose 99 (74-106) mg/dL Calcium 9.2 (8.5-10.1) mg/dL Total Bilirubin 2.9 H (0.2-1.0) mg/dL AST 41 H (15-37) IU/L ALT 36 (14-63) IU/L Alkaline Phosphatase 77 (46-116) U/L C-Reactive Protein <0.20 (0.00-0.90) mg/dL Total Protein 8.5 H (6.4-8.2) g/dL Albumin 4.4 (3.4-5.0) g/dL Globulin 4.1 H (2.6-4.0) g/dL Albumin/Globulin Ratio 1.1 (0.9-1.6) Lipase 149 (73-393) U/L Meds: Medications Discontinued Medications Generic Name Dose Route Start Last Admin Trade Name Erin PRN Reason Stop Dose Admin Sodium Chloride 1,000 mls @ 999 mls/hr 10/03/18 05:21 10/03/18 05:34 Normal Saline IV 10/03/18 06:21 999 mls/hr STAT ONE Administration Iopamidol 100 ml 10/03/18 06:33 10/03/18 06:41 Isovue-370 (76%) IVPUSH 10/03/18 06:34 100 ml ONETIME ONE Administration Ketorolac Tromethamine 30 mg 10/03/18 05:21 10/03/18 05:36 Toradol IVPUSH 10/03/18 05:22 30 mg ONETIME ONE Administration Ondansetron HCl 8 mg 10/03/18 05:21 10/03/18 05:36 Zofran IVPUSH 10/03/18 05:22 8 mg ONETIME ONE Administration Ondansetron HCl Confirm 10/03/18 05:37 10/03/18 06:07 Zofran Administered 10/03/18 05:38 Not Given Dose 4 mg .ROUTE .STK-MED ONE Departure - Departure Time of Disposition: 06:49 Disposition: Home, Self-Care 01 Condition: Good Clinical Impression: Abdominal pain - Discharge Information Referrals: PCP,None [Primary Care Provider] - Forms: ED Department Discharge Additional Instructions: The following information is given to patients seen in the emergency department who are being discharged to home. This information is to outline your options for follow-up care. We provide all patients seen in our emergency department with a follow-up referral. The need for follow-up, as well as the timing and circumstances, are variable depending upon the specifics of your emergency department visit. If you don't have a primary care physician on staff, we will provide you with a referral. We always advise you to contact your personal physician following an emergency department visit to inform them of the circumstance of the visit and for follow-up with them and/or the need for any referrals to a consulting specialist. The emergency department will also refer you to a specialist when appropriate. This referral assures that you have the opportunity for follow-up care with a specialist. All of these measure are taken in an effort to provide you with optimal care, which includes your follow-up. Under all circumstances we always encourage you to contact your private physician who remains a resource for coordinating your care. When calling for follow-up care, please make the office aware that this follow-up is from your recent emergency room visit. If for any reason you are refused follow-up, please contact the [facility] emergency department at and asked to speak to the emergency department charge nurse. - My Orders Last 24 Hours: My Active Orders 10/03/18 05:43 Abdomen Pelvis w Cont [CT] Stat 10/03/18 06:39 Abdomen Ltd [US] Stat 10/03/18 06:45 UA RFX JOVANI AND CULT IF INDIC [URIN] Stat - Assessment/Plan Last 24 Hours: My Active Orders 10/03/18 05:43 Abdomen Pelvis w Cont [CT] Stat 10/03/18 06:39 Abdomen Ltd [US] Stat 10/03/18 06:45 UA RFX JOVANI AND CULT IF INDIC [URIN] Stat
--- NOTE | 2018-10-03 07:13 | CT ---
INDICATION: Abdominal pain. TECHNIQUE: Contrast-enhanced CT abdomen pelvis coronal sagittal reformat images obtained. COMPARISON: CT abdomen pelvis 08/01/2018. FINDINGS: The heart size is normal. There is no pericardial pleural effusion. Lung bases appear clear. The spleen liver gallbladder adrenal glands are unremarkable. Symmetric enhancement both kidneys which are unremarkable. Normal caliber abdominal aorta. Normal appendix. Bowel is unremarkable. No obstruction or inflammatory change. Mildly prominent right lower quadrant mesenteric nodes measuring up to 6 millimeter short axis. Tiny amount of free fluid in the pelvis again seen without significant change. Urinary bladder is unremarkable. Prostate gland seminal vesicles within normal limits. No suspicious bony lesions. Impression : 1. No acute findings in the abdomen or pelvis. Normal appendix. 2. Tiny amount of free fluid in the pelvis without significant change. 3. Mildly prominent right lower quadrant mesenteric nodes could be related to mesenteric adenitis. Please note that all CT scans at this facility use dose modulation, iterative reconstruction, and/or weight-based dosing when appropriate to reduce radiation dose to as low as reasonably achievable. Dictated by Leeanna Etienne MD @ Oct 03 2018 7:01AM Signed by Dr. Leeanna Etienne @ Oct 03 2018 7:10AM
--- NOTE | 2018-10-03 08:07 | US ---
CLINICAL HISTORY: Abdominal pain FINDINGS: The patient`s liver is of normal size and has uniform echogenicity. There is a normal appearance of the hepatic IVC and proximal abdominal aorta. There is no evidence of ascites. Sludge and stones in the gallbladder. Gallbladder wall is upper limits of normal measuring 3 millimeters. No pericholecystic fluid. Positive sonographic Nunes sign. The common bile duct is of normal size and measures 4 mm in diameter at the level of the jarrod hepatis. The pancreas appears normal. There is no evidence of a stone or hydronephrosis within the right kidney. The right kidney measures 9.5 cm in length. IMPRESSION: 1. Cholelithiasis. Positive sonographic Nunes sign reported. Gallbladder wall upper limits of normal measuring 3 millimeters. Findings suggest cholecystitis. Dictated by Leeanna Etienne MD @ Oct 03 2018 8:03AM Signed by Dr. Leeanna Etienne @ Oct 03 2018 8:07AM
== END 2018-10-03 08:33 | disposition home or self-care (01) ==
LOC: MW.ED 05:18
DX: K80.20 Calculus of gallbladder without cholecystitis without obstruction (principal)
CPT/HCPCS: 36415; 74177; 76705; 80053; 81003; 83690; 85025; 86140; 96361; 96374; 96375; 99284; J1885; J2405; J7040; Q9967; 99283

== ENCOUNTER 2018-10-07 15:21 | Emergency (ER) | payer SELFPAY ==
--- NOTE | 2018-10-07 15:37 | EDM.PDOC ---
ED HPI GENERAL MEDICAL PROBLEM - General Chief Complaint: Abdominal Pain Stated Complaint: YELLOW EYES AND STOMACH PAIN Time Seen by Provider: 10/07/18 15:37 Source of Information: Reports: Patient - History of Present Illness INITIAL COMMENTS - FREE TEXT/NARRATIVE: HISTORY AND PHYSICAL: History of present illness: [Patient with history of recent diagnosis of cholecystitis presents now with jaundice and were seen in the abdominal pain, he was seen on the and had followed up with general surgery as bilirubin was 2 at that time, the patient was somewhat disgruntled and had elected to make his own arrangements in mind Dr. Buenrostro ultimately, however this did not occur, and he presents as such. With scleral icterus and right upper quadrant pain Have discussed patient with our surgery here which confirms he does need an ERCP , which have made arrangements to transfer to [place] via ambulance for continued management 's excepting physician is [facility] The patient was then reluctant to go to [place] again preferring to make his own arrangements that has again changed his mind and will now follow through with transfer to have made arrangements with Dr. Borges's excepting transfer to the emergency room in [facility] Dr. Billingsley GI specialist. is in an emergent procedure, was unable to speak with him directly No fever vomiting chills sweats Review of systems: As per history of present illness and below otherwise all systems reviewed and negative. Past medical history: As per history of present illness and as reviewed below otherwise noncontributory. Surgical history: As per history of present illness and as reviewed below otherwise noncontributory. Social history: No reported history of drug or alcohol abuse. Family history: As per history of present illness and as reviewed below otherwise noncontributory. Physical exam: HEENT: Atraumatic, normocephalic, pupils reactive, pos scleral icterus, mucous membranes moist, throat clear, neck supple, nontender, trachea midline. Lungs: Clear to auscultation, breath sounds equal bilaterally, chest nontender. Heart: S1S2, regular, negative for clicks, rubs, or JVD. Abdomen: Soft, nondistended, nontender. Negative for masses or hepatosplenomegaly. Negative for costovertebral tenderness. Pelvis: Stable nontender. Genitourinary: Deferred. Rectal: Deferred. Extremities: Atraumatic, negative for cords or calf pain. Neurovascular unremarkable. Neuro: Awake, alert, oriented. Cranial nerves II through XII unremarkable. Cerebellum unremarkable. Motor and sensory unremarkable throughout. Exam nonfocal. Diagnostics: [CBC CMP UA troponin lipase ammonia EKG ] Therapeutics: [Normal saline ] Impression: Acute cholecystitis Jaundice History of HIV-no treatment patient is not aware of his CD4 counts Definitive disposition and diagnosis as appropriate pending reevaluation and review of above. Abdomen Pain Score (Numeric/FACES): 10 - Related Data Allergies Allergy/AdvReac Type Severity Reaction Status Date / Time No Known Allergies Allergy Verified 10/07/18 15:31 Home Meds: Home Meds . [No Known Home Meds] 06/28/18 [History] Past Medical History Cardiovascular History: Reports: None Respiratory History: Reports: Asthma Gastrointestinal History: Reports: Cholelithiasis Genitourinary History: Reports: None Musculoskeletal History: Reports: None Neurological History: Reports: None Psychiatric History: Reports: Anxiety, Depression Endocrine/Metabolic History: Reports: None Hematologic History: Reports: None Immunologic History: Reports: HIV Oncologic (Cancer) History: Reports: None Dermatologic History: Reports: None - Infectious Disease History Infectious Disease History: Reports: HIV-Human Immunodeficiency Virus - Past Surgical History Head Surgeries/Procedures: Reports: None HEENT Surgical History: Reports: Oral Surgery Social & Family History - Family History Family Medical History: Noncontributory - Tobacco Use Smoking Status *Q: Never Smoker - Caffeine Use Caffeine Use: Reports: Energy Drinks - Recreational Drug Use Recreational Drug Use: No ED ROS GENERAL - Review of Systems Review Of Systems: See Below ED EXAM, GENERAL - Physical Exam Exam: See Below Course - Vital Signs Last Recorded V/S: Last Vital Signs Temp 96.2 F 10/07/18 15:26 Pulse 94 10/07/18 15:26 Resp 16 10/07/18 15:26 BP 122/75 10/07/18 15:26 Pulse Ox 95 10/07/18 15:26 - Orders/Labs/Meds Orders: Active Orders 24 hr Category Date Time Status UA RFX JOVANI AND CULT IF INDIC [URIN] Stat Lab 10/07/18 15:36 Ordered Ciprofloxacin in D5W [Cipro in D5W 400 MG/200 ML] 400 Med 10/07/18 16:15 Active mg Premix Bag 1 bag IV Q12H Sodium Chloride 0.9% [Normal Saline] 1,000 ml Med 10/07/18 15:45 Active IV STAT Medication Orders Sodium Chloride (Normal Saline) 1,000 mls @ 125 mls/hr IV STAT ROLAND Last Admin: 10/07/18 15:48 Dose: 125 mls/hr Ciprofloxacin/Dextrose 400 mg/ (Premix) 200 mls @ 200 mls/hr IV Q12H [facility] Labs: Laboratory Tests 10/07/18 10/07/18 Range/Units 15:42 15:42 WBC 5.35 (4.0-11.0) K/uL RBC 3.83 L (4.50-5.90) M/uL Hgb 10.0 L (13.0-17.0) g/dL Hct 31.0 L (38.0-50.0) % MCV 80.9 (80.0-98.0) fL MCH 26.1 L (27.0-32.0) pg MCHC 32.3 (31.0-37.0) g/dL RDW Std Deviation 37.9 (28.0-62.0) fl RDW Coeff of Freddie 13 (11.0-15.0) % Plt Count 100 L (150-400) K/uL MPV 13.10 H (7.40-12.00) fL Neut % (Auto) 39.8 L (48.0-80.0) % Lymph % (Auto) 52.5 H (16.0-40.0) % [place] % (Auto) 4.7 (0.0-15.0) % Eos % (Auto) 2.6 (0.0-7.0) % Baso % (Auto) 0.4 (0.0-1.5) % Neut # (Auto) 2.1 (1.4-5.7) K/uL Lymph # (Auto) 2.8 H (0.6-2.4) K/uL [place] # (Auto) 0.3 (0.0-0.8) K/uL Eos # (Auto) 0.1 (0.0-0.7) K/uL Baso # (Auto) 0.0 (0.0-0.1) K/uL Nucleated RBC % 0.8 /100WBC Nucleated RBCs # 0 K/uL Sodium 137 (136-148) mmol/L Potassium 4.0 (3.5-5.1) mmol/L Chloride 105 (98-107) mmol/L Carbon Dioxide 25.9 (21.0-32.0) mmol/L BUN 14 (7.0-18.0) mg/dL Creatinine 1.0 (0.8-1.3) mg/dL Est Cr Clr Drug Dosing 97.38 mL/min Estimated GFR (MDRD) > 60.0 ml/min Glucose 94 (74-106) mg/dL Calcium 9.2 (8.5-10.1) mg/dL Total Bilirubin 10.0 H (0.2-1.0) mg/dL AST 37 (15-37) IU/L ALT 52 (14-63) IU/L Alkaline Phosphatase 84 (46-116) U/L Troponin I < 0.050 (0.000-0.056) ng/mL Total Protein 8.4 H (6.4-8.2) g/dL Albumin 4.1 (3.4-5.0) g/dL Globulin 4.3 H (2.6-4.0) g/dL Albumin/Globulin Ratio 1.0 (0.9-1.6) Lipase 73 (73-393) U/L Ethyl Alcohol < 3.0 mg/dL Meds: Medications Generic Name Dose Route Start Last Admin Trade Name Freq PRN Reason Stop Dose Admin Sodium Chloride 1,000 mls @ 125 mls/hr 10/07/18 15:45 10/07/18 15:48 Normal Saline IV 125 mls/hr STAT ROLAND Administration Ciprofloxacin/Dextrose 400 mg/ 200 mls @ 200 mls/hr 10/07/18 16:15 Premix IV Q12H ROLAND Discontinued Medications Generic Name Dose Route Start Last Admin Trade Name Freq PRN Reason Stop Dose Admin Ketorolac Tromethamine 30 mg 10/07/18 16:05 Toradol IVPUSH 10/07/18 16:06 ONETIME ONE Ondansetron HCl 8 mg 10/07/18 16:05 Zofran IVPUSH 10/07/18 16:06 ONETIME ONE Departure - Departure Time of Disposition: 16:57 Disposition: DC/Tfer to Acute Hospital 02 Condition: Poor Clinical Impression: Cholecystitis, Elevated bilirubin - Discharge Information Referrals: PCP,Unknown [Primary Care Provider] - Forms: ED Department Discharge - My Orders Last 24 Hours: My Active Orders 10/07/18 15:36 UA RFX JOVANI AND CULT IF INDIC [URIN] Stat 10/07/18 15:45 Sodium Chloride 0.9% [Normal Saline] 1,000 ml IV STAT 10/07/18 16:15 Ciprofloxacin in D5W [Cipro in D5W 400 MG/200 ML] 400 mg Premix Bag 1 bag IV Q12H - Assessment/Plan Last 24 Hours: My Active Orders 10/07/18 15:36 UA RFX JOVANI AND CULT IF INDIC [URIN] Stat 10/07/18 15:45 Sodium Chloride 0.9% [Normal Saline] 1,000 ml IV STAT 10/07/18 16:15 Ciprofloxacin in D5W [Cipro in D5W 400 MG/200 ML] 400 mg Premix Bag 1 bag IV Q12H
[2018-10-07] MEDS ORDERED: Sodium Chloride 0.9% 1,000 ML IV SCH (15:45)
[2018-10-07] MEDS ORDERED: Ketorolac 30 MG/ML SDV IVPUSH ONE (16:05)
[2018-10-07] MEDS ORDERED: Ondansetron 4 MG/2 ML SDV IVPUSH ONE (16:05)
[2018-10-07 16:14] LABS: CHLORIDE,CL 105 mmol/L (98-107); SODIUM,NA 137 mmol/L (136-148)
[2018-10-07] MEDS ORDERED: Ciprofloxacin in D5W 400 MG in Premix Bag 1 BAG IV SCH ×2 (16:15)
== END 2018-10-07 18:13 ==
LOC: MW.ED 15:21
DX: K81.0 Acute cholecystitis (principal); R17 Unspecified jaundice
CPT/HCPCS: 36415; 80053; 83690; 84484; 85025; 96361; 96365; 96375; 99285; G0480; J0744; J1885; J2405; J7040

== ENCOUNTER 2018-10-17 09:03 | Emergency (ER) | payer BC ==
[2018-10-17] MEDS ORDERED: Sodium Chloride 0.9% 10 ML Syringe FLUSH PRN (09:30)
[2018-10-17] MEDS ORDERED: Sodium Chloride 0.9% 2.5 ML Syringe FLUSH PRN (09:30)
[2018-10-17] MEDS ORDERED: Ketorolac 30 MG/ML SDV IVPUSH ONE (09:30)
[2018-10-17] MEDS ORDERED: Sodium Chloride 0.9% 1,000 ML IV ONE (09:30)
[2018-10-17] MEDS ORDERED: Ondansetron 4 MG/2 ML SDV IVPUSH ONE (09:34)
--- NOTE | 2018-10-17 09:37 | EDM.PDOC ---
ED HPI GENERAL MEDICAL PROBLEM - General Chief Complaint: Abdominal Pain Stated Complaint: ABD PAIN Time Seen by Provider: 10/17/18 09:23 - History of Present Illness INITIAL COMMENTS - FREE TEXT/NARRATIVE: HISTORY AND PHYSICAL: History of present illness: The patient is a 28 rolled male who has been seen in the emergency department multiple times for abdominal pain and more recently on October [address] scan of the abdomen and pelvis which did not reveal any significant abnormality and an ultrasound which revealed cholelithiasis and gallbladder wall thickening to 3 mm. On October 07 the patient was seen here and had bumped his bilirubin from 2.9- 10 and in the interim has been seen by one of our surgeons to have a cholecystectomy scheduled. In light of the bump of the bilirubin on that ED visit the patient was transferred to [facility] in [place] as it was felt by both the ED provider and the surgeon that he needed an ERCP. According to the patient he was transferred and spent about 3 or 4 days in [place] and they did not do an ERCP and he said that he left there because he felt like he was not getting adequate care. He said they kept talking about taking his gallbladder out but nobody was doing it. Since that time he has not followed up in our clinic and says that he is still having persistent pain in the right upper quadrant without nausea vomiting or diarrhea and no fevers. He does not have anything to take for pain management and he is here because he would like to have his gallbladder removed. In my interview with him the patient is very comfortable and in no distress to listen to music on his headphones The patient has a known HIV positive history Review of systems: As per history of present illness and below otherwise all systems reviewed and negative. Past medical history: As per history of present illness and as reviewed below otherwise noncontributory. Surgical history: As per history of present illness and as reviewed below otherwise noncontributory. Social history: No reported history of drug or alcohol abuse. Family history: As per history of present illness and as reviewed below otherwise noncontributory. Physical exam: General: Well-developed well-nourished man who is nontoxic and vital signs were noted by me. He is very comfortable in my interview and examination without any distress HEENT: Atraumatic, normocephalic, pupils reactive, negative for conjunctival pallor, there is no visible evidence of any scleral icterus, mucous membranes moist, throat clear, neck supple, nontender, trachea midline. Lungs: Clear to auscultation, breath sounds equal bilaterally, chest nontender. Heart: S1S2, regular, negative for clicks, rubs, or JVD. Abdomen: Soft, nondistended, minimal tenderness on very deep palpation in the right upper quadrant without any rebound or guarding and bowel sounds are normoactive. With distraction the patient has absolutely no tenderness in this right upper quadrant. Negative for masses or hepatosplenomegaly. Negative for costovertebral tenderness. Pelvis: Stable nontender. Genitourinary: Deferred. Rectal: Deferred. Extremities: Atraumatic, negative for cords or calf pain. Neurovascular unremarkable. Neuro: Awake, alert, oriented. Cranial nerves II through XII unremarkable. Cerebellum unremarkable. Motor and sensory unremarkable throughout. Exam nonfocal. Diagnostics: CBC CMP INR amylase and lipase Therapeutics: IV fluids Zofran Toradol I had a conversation with the patient that we would need to check his labs to determine whether or not he needed any emergent intervention at this point. He clinically does not like jaundiced and is not in any significant discomfort and on my examination he has minimal tenderness on very deep palpation and no tenderness with distraction. I told him that the likelihood of emergent cholecystectomy was low at this point and he said that if we would not do it here he would like to be transferred to [facility]. I reiterated to him that transfer would not ensure that he would get emergent cholecystectomy if there was not a cause for that or need for that. We will re-evaluate and rediscuss after the blood work is obtained. 1012: Case was discussed with Dr. Wade and he is aware of the lab tests and the preceding ED visits and history at [facility]. He is aware of my clinical findings here in the ED and does not feel that the patient needs to be admitted nor does he need emergent cholecystectomy. This conversation will be relayed to the patient . 1022: Patient was sleeping on my arrival to discuss my conversation with Dr. Wade and his testing results. I woke him up and he says he is feeling improved and he is aware of the need to follow-up with one of our surgeons or the surgeon that he saw at [facility] for cholecystectomy on an elective basis. I will give him some tramadol and Zofran for home to use as needed and have advised him on a low-fat diet Impression: Biliary colic with history of cholelithiasis Definitive disposition and diagnosis as appropriate pending reevaluation and review of above. Abdomen Pain Score (Numeric/FACES): 10 - Related Data Allergies Allergy/AdvReac Type Severity Reaction Status Date / Time No Known Allergies Allergy Verified 10/17/18 09:20 Home Meds: Home Meds . [No Known Home Meds] 06/28/18 [History] Past Medical History - Past Health History Medical/Surgical History: Denies Medical/Surgical History Cardiovascular History: Reports: None Respiratory History: Reports: Asthma Gastrointestinal History: Reports: Cholelithiasis Genitourinary History: Reports: None Musculoskeletal History: Reports: None Neurological History: Reports: None Psychiatric History: Reports: Anxiety, Depression Endocrine/Metabolic History: Reports: None Hematologic History: Reports: None Immunologic History: Reports: HIV Oncologic (Cancer) History: Reports: None Dermatologic History: Reports: None - Infectious Disease History Infectious Disease History: Reports: HIV-Human Immunodeficiency Virus - Past Surgical History Head Surgeries/Procedures: Reports: None HEENT Surgical History: Reports: Oral Surgery Social & Family History - Family History Family Medical History: Noncontributory - Tobacco Use Smoking Status *Q: Never Smoker - Caffeine Use Caffeine Use: Reports: Energy Drinks - Recreational Drug Use Recreational Drug Use: No ED ROS GENERAL - Review of Systems Review Of Systems: ROS reveals no pertinent complaints other than HPI. ED EXAM, GENERAL - Physical Exam Exam: See Below (See dictation) Course - Vital Signs Last Recorded V/S: Last Vital Signs Temp 36.0 C 10/17/18 09:16 Pulse 68 10/17/18 09:16 Resp 18 10/17/18 09:16 BP 107/70 10/17/18 09:16 Pulse Ox 97 10/17/18 09:16 - Orders/Labs/Meds Orders: Active Orders 24 hr Category Date Time Status Sodium Chloride 0.9% [Normal Saline] 1,000 ml Med 10/17/18 09:30 Active IV STAT Sodium Chloride 0.9% [Saline Flush] Med 10/17/18 09:30 Active 10 ml FLUSH ASDIRECTED PRN Sodium Chloride 0.9% [Saline Flush] Med 10/17/18 09:30 Active 2.5 ml FLUSH ASDIRECTED PRN Saline Lock Insert [OM.PC] Stat Oth 10/17/18 09:30 Ordered Medication Orders Sodium Chloride (Normal Saline) 1,000 mls @ 999 mls/hr IV STAT ONE Stop: 10/17/18 10:30 Last Admin: 10/17/18 09:43 Dose: 999 mls/hr Sodium Chloride (Saline Flush) 10 ml FLUSH ASDIRECTED PRN PRN Reason: Keep Vein Open Last Admin: 10/17/18 09:43 Dose: 10 ml Sodium Chloride (Saline Flush) 2.5 ml FLUSH ASDIRECTED PRN PRN Reason: Keep Vein Open Last Admin: 10/17/18 09:43 Dose: 2.5 ml Labs: Laboratory Tests 10/17/18 10/17/18 10/17/18 Range/Units 09:40 09:40 09:40 WBC 3.70 L (4.0-11.0) K/uL RBC 3.51 L (4.50-5.90) M/uL Hgb 9.3 L (13.0-17.0) g/dL Hct 29.2 L (38.0-50.0) % MCV 83.2 (80.0-98.0) fL MCH 26.5 L (27.0-32.0) pg MCHC 31.8 (31.0-37.0) g/dL RDW Std Deviation 46.1 (28.0-62.0) fl RDW Coeff of Freddie 15 (11.0-15.0) % Plt Count 143 L (150-400) K/uL MPV 12.50 H (7.40-12.00) fL Neut % (Auto) 50.5 (48.0-80.0) % Lymph % (Auto) 42.2 H (16.0-40.0) % [place] % (Auto) 5.1 (0.0-15.0) % Eos % (Auto) 1.9 (0.0-7.0) % Baso % (Auto) 0.3 (0.0-1.5) % Neut # (Auto) 1.9 (1.4-5.7) K/uL Lymph # (Auto) 1.6 (0.6-2.4) K/uL [place] # (Auto) 0.2 (0.0-0.8) K/uL Eos # (Auto) 0.1 (0.0-0.7) K/uL Baso # (Auto) 0.0 (0.0-0.1) K/uL Nucleated RBC % 0.0 /100WBC Nucleated RBCs # 0 K/uL INR 1.00 Sodium 140 (136-148) mmol/L Potassium 3.5 (3.5-5.1) mmol/L Chloride 107 (98-107) mmol/L Carbon Dioxide 24.1 (21.0-32.0) mmol/L BUN 15 (7.0-18.0) mg/dL Creatinine 1.1 (0.8-1.3) mg/dL Est Cr Clr Drug Dosing 88.52 mL/min Estimated GFR (MDRD) > 60.0 ml/min Glucose 120 H (74-106) mg/dL Calcium 8.9 (8.5-10.1) mg/dL Total Bilirubin 1.4 H (0.2-1.0) mg/dL AST 152 H (15-37) IU/L ALT 56 (14-63) IU/L Alkaline Phosphatase 82 (46-116) U/L Total Protein 7.9 (6.4-8.2) g/dL Albumin 3.6 (3.4-5.0) g/dL Globulin 4.3 H (2.6-4.0) g/dL Albumin/Globulin Ratio 0.8 L (0.9-1.6) Amylase 73 (25-115) U/L Lipase 120 (73-393) U/L Meds: Medications Generic Name Dose Route Start Last Admin Trade Name Freq PRN Reason Stop Dose Admin Sodium Chloride 1,000 mls @ 999 mls/hr 10/17/18 09:30 10/17/18 09:43 Normal Saline IV 10/17/18 10:30 999 mls/hr STAT ONE Administration Sodium Chloride 10 ml 10/17/18 09:30 10/17/18 09:43 Saline Flush FLUSH 10 ml ASDIRECTED PRN Administration Keep Vein Open Sodium Chloride 2.5 ml 10/17/18 09:30 10/17/18 09:43 Saline Flush FLUSH 2.5 ml ASDIRECTED PRN Administration Keep Vein Open Discontinued Medications Generic Name Dose Route Start Last Admin Trade Name Freq PRN Reason Stop Dose Admin Ketorolac Tromethamine 30 mg 10/17/18 09:30 10/17/18 09:42 Toradol IVPUSH 10/17/18 09:31 30 mg ONETIME ONE Administration Ondansetron HCl 4 mg 10/17/18 09:34 10/17/18 09:43 Zofran IVPUSH 10/17/18 09:35 4 mg ONETIME ONE Administration Departure - Departure Time of Disposition: 10:23 Disposition: Home, Self-Care 01 Condition: Good Clinical Impression: Biliary colic, History of cholelithiasis - Discharge Information Referrals: PCP,None [Primary Care Provider] - Forms: ED Department Discharge Additional Instructions: The following information is given to patients seen in the emergency department who are being discharged to home. This information is to outline your options for follow-up care. We provide all patients seen in our emergency department with a follow-up referral. The need for follow-up, as well as the timing and circumstances, are variable depending upon the specifics of your emergency department visit. If you don't have a primary care physician on staff, we will provide you with a referral. We always advise you to contact your personal physician following an emergency department visit to inform them of the circumstance of the visit and for follow-up with them and/or the need for any referrals to a consulting specialist. The emergency department will also refer you to a specialist when appropriate. This referral assures that you have the opportunity for followup care with a specialist. All of these measure are taken in an effort to provide you with optimal care, which includes your followup. Under all circumstances we always encourage you to contact your private physician who remains a resource for coordinating your care. When calling for followup care, please make the office aware that this follow-up is from your recent emergency room visit. If for any reason you are refused follow-up, please contact the [facility] emergency department at and ask to speak to the emergency department charge nurse. [facility] [address] [place] [id number] Push hydration and avoid caffeinated products and eating a low-fat diet. Please connect to follow up with one of our surgeons in the clinic or the surgeon that you worked with at [facility] in [place] to schedule outpatient cholecystectomy as we discussed. Use medications as needed and prescribed and return to ER as needed and as discussed - My Orders Last 24 Hours: My Active Orders 10/17/18 09:30 Sodium Chloride 0.9% [Normal Saline] 1,000 ml IV STAT Sodium Chloride 0.9% [Saline Flush] 10 ml FLUSH ASDIRECTED PRN Sodium Chloride 0.9% [Saline Flush] 2.5 ml FLUSH ASDIRECTED PRN Saline Lock Insert [OM.PC] Stat - Assessment/Plan Last 24 Hours: My Active Orders 10/17/18 09:30 Sodium Chloride 0.9% [Normal Saline] 1,000 ml IV STAT Sodium Chloride 0.9% [Saline Flush] 10 ml FLUSH ASDIRECTED PRN Sodium Chloride 0.9% [Saline Flush] 2.5 ml FLUSH ASDIRECTED PRN Saline Lock Insert [OM.PC] Stat
[2018-10-17 10:05] LABS: BLOOD UREA NITROGEN,BUN 15 mg/dL (7.0-18.0); CARBON DIOXIDE,CO2 24.1 mmol/L (21.0-32.0); CHLORIDE,CL 107 mmol/L (98-107); GLUCOSE RANDOM 120 mg/dL (74-106); LIPASE 120 U/L (73-393); POTASSIUM,K 3.5 mmol/L (3.5-5.1); SODIUM,NA 140 mmol/L (136-148)
== END 2018-10-17 11:15 | disposition home or self-care (01) ==
LOC: MW.ED 09:03
DX: K80.50 Calculus of bile duct without cholangitis or cholecystitis without obstruction (principal)
CPT/HCPCS: 36415; 80053; 82150; 83690; 85025; 85610; 96361; 96374; 96375; 99284; J1885; J2405; J7040

== ENCOUNTER 2018-10-23 12:55 | Emergency (ER) | payer BC ==
--- NOTE | 2018-10-23 14:01 | EDM.PDOC ---
ED HPI GENERAL MEDICAL PROBLEM - General Chief Complaint: General Stated Complaint: STOMACH PAIN Time Seen by Provider: 10/23/18 13:01 Source of Information: Reports: Patient History Limitations: Reports: No Limitations - History of Present Illness INITIAL COMMENTS - FREE TEXT/NARRATIVE: HISTORY AND PHYSICAL: History of present illness: Patient is a 28-year-old male who presents to the ED today for desire for pain medication for chronic gallbladder issues. Patient states that he has chronic gallbladder issues over the past 3 months illness she has had thoroughly evaluated and told that he needs to have his gallbladder removed at his earliest convenience. Patient states he's been unable to make his appointments due to concern of his job as well as not having enough money. Patient denies any new symptoms or symptoms that he wishes to be evaluated. Patient states that he had only checked in to the ED with a desire to get pain medications. Patient denies fever, chills, chest pain, shortness of breath, or cough. Denies headache, neck stiff ness, change in vision, syncope, or near syncope. Denies nausea, vomiting, abdominal pain, diarrhea, constipation, or dysuria. Has not noted any blood in urine or stool. Patient has been eating and drinking appropriately. Review of systems: As per history of present illness and below otherwise all systems reviewed and negative. Past medical history: As per history of present illness and as reviewed below otherwise noncontributory. Surgical history: As per history of present illness and as reviewed below otherwise noncontributory. Social history: See social history for further information Family history: As per history of present illness and as reviewed below otherwise noncontributory. Physical exam: General: Patient is alert, oriented, and in no acute distress. Patient sitting comfortably on exam table. HEENT: Atraumatic, normocephalic, pupils equal and reactive bilaterally, negative for conjunctival pallor or scleral icterus, mucous membranes moist, TMs normal bilaterally, throat clear, neck supple, nontender, trachea midline. No drooling or trismus noted. No meningeal signs. No hot potato voice noted. Lungs: Clear to auscultation, breath sounds equal bilaterally, chest nontender. Heart: S1S2, regular rate and rhythm without overt murmur Abdomen: Soft, nondistended, nontender. Negative for masses or hepatosplenomegaly. Negative for costovertebral tenderness. Pelvis: Stable nontender. Genitourinary: Deferred. Rectal: Deferred. Skin: Intact, warm, dry. No lesions or rashes noted. Extremities: Atraumatic, negative for cords or calf pain. Neurovascular unremarkable. Neuro: Awake, alert, oriented. Cranial nerves II through XII unremarkable. Cerebellum unremarkable. Motor and sensory unremarkable throughout. Exam nonfocal. Notes: Had a thorough discussion with patient about getting established with a primary care provider in the importance of this. Voices understanding and is agreeable to plan of care. Denies any further questions or concerns at this time. Diagnostics: Patient declines Therapeutics: None Prescription: None Impression: Medical Screening Exam Plan: (Patient eloped from ED prior to being given discharge packet or information regarding establishing a primary care) 1. You can alternate ibuprofen and Tylenol as directed for pain and discomfort. 2. Get established with a primary care provider as thoroughly discussed. Return to the ED as needed and as discussed. Definitive disposition and diagnosis as appropriate pending reevaluation and review of above. Generalized Pain Score (Numeric/FACES): 10 - Related Data Allergies Allergy/AdvReac Type Severity Reaction Status Date / Time No Known Allergies Allergy Verified 10/23/18 13:13 Home Meds: Home Meds . [No Known Home Meds] 06/28/18 [History] Past Medical History - Past Health History Medical/Surgical History: Denies Medical/Surgical History Cardiovascular History: Reports: None Respiratory History: Reports: Asthma Gastrointestinal History: Reports: Cholelithiasis Genitourinary History: Reports: None Musculoskeletal History: Reports: None Neurological History: Reports: None Psychiatric History: Reports: Anxiety, Depression Endocrine/Metabolic History: Reports: None Hematologic History: Reports: None Immunologic History: Reports: HIV Oncologic (Cancer) History: Reports: None Dermatologic History: Reports: None - Infectious Disease History Infectious Disease History: Reports: HIV-Human Immunodeficiency Virus - Past Surgical History Head Surgeries/Procedures: Reports: None HEENT Surgical History: Reports: Oral Surgery Social & Family History - Family History Family Medical History: Noncontributory - Tobacco Use Smoking Status *Q: Never Smoker - Caffeine Use Caffeine Use: Reports: Energy Drinks - Recreational Drug Use Recreational Drug Use: No ED ROS GENERAL - Review of Systems Review Of Systems: ROS reveals no pertinent complaints other than HPI. ED EXAM, GENERAL - Physical Exam Exam: See Below (See dictation) Course - Vital Signs Last Recorded V/S: Last Vital Signs Temp 36.6 C 10/23/18 13:09 Pulse 50 L 10/23/18 13:09 Resp 18 10/23/18 13:09 BP 111/64 10/23/18 13:09 Pulse Ox 98 10/23/18 13:09 Departure - Departure Time of Disposition: 14:00 Disposition: Home, Self-Care 01 Clinical Impression: Encounter for medical screening examination - Discharge Information Instructions: Medical Screening Exam Referrals: PCP,Unknown [Primary Care Provider] - Forms: ED Department Discharge Additional Instructions: The following information is given to patients seen in the emergency department who are being discharged to home. This information is to outline your options for follow-up care. We provide all patients seen in our emergency department with a follow-up referral. The need for follow-up, as well as the timing and circumstances, are variable depending upon the specifics of your emergency department visit. If you don't have a primary care physician on staff, we will provide you with a referral. We always advise you to contact your personal physician following an emergency department visit to inform them of the circumstance of the visit and for follow-up with them and/or the need for any referrals to a consulting specialist. The emergency department will also refer you to a specialist when appropriate. This referral assures that you have the opportunity for follow-up care with a specialist. All of these measure are taken in an effort to provide you with optimal care, which includes your follow-up. Under all circumstances we always encourage you to contact your private physician who remains a resource for coordinating your care. When calling for follow-up care, please make the office aware that this follow-up is from your recent emergency room visit. If for any reason you are refused follow-up, please contact the [facility] Emergency Department at and asked to speak to the emergency department charge nurse. [facility] Primary Care [address] [place] [id number] [facility] [address] [place] [id number] 1. You can alternate ibuprofen and Tylenol as directed for pain and discomfort. 2. Get established with a primary care provider as thoroughly discussed. The numbers you can call to get established are bolded above for you. 3. Return to the ED as needed and as discussed.
== END 2018-10-23 14:08 | disposition home or self-care (01) ==
LOC: MW.ED 12:55
DX: Z13.9 Encounter for screening, unspecified (principal)
CPT/HCPCS: 99281

== ENCOUNTER 2018-10-27 21:16 | Emergency (ER) | payer BC, OTHER ==
[2018-10-27] MEDS ORDERED: Ondansetron 4 MG Tab.DIS PO ONE (21:36)
[2018-10-27] MEDS ORDERED: Ketorolac 30 MG/ML SDV IM ONE (21:41)
--- NOTE | 2018-10-27 21:42 | EDM.PDOC ---
ED HPI GENERAL MEDICAL PROBLEM - General Chief Complaint: Abdominal Pain Stated Complaint: AMB Time Seen by Provider: 10/27/18 21:27 Source of Information: Reports: Patient History Limitations: Reports: No Limitations - History of Present Illness INITIAL COMMENTS - FREE TEXT/NARRATIVE: Presents reporting "gallbladder pain". The patient has been seen in the emergency department multiple times for abdominal pain. On October 03/[address] scan of the abdomen and pelvis which was negative and an ultrasound which revealed cholelithiasis and gallbladder wall thickening to 3 mm. On October 07 patient was seen here and his bilirubin was noted to have increased from 2.9- 10. He was seen by a surgeon here but in light of the pump with a bilirubin he was transferred to [facility] in [place] as it was felt he needed an ERCP. According to the patient he spent about 3 or 4 days in [place] but when they did not do an ERCP or take out his gallbladder he left. Since that time he has not followed up in any clinic and has been seen here in the emergency room a couple more times for right upper quadrant pain without other symptoms. abdominal Pain Score (Numeric/FACES): 10 - Related Data Allergies Allergy/AdvReac Type Severity Reaction Status Date / Time No Known Allergies Allergy Verified 10/27/18 21:25 Home Meds: Home Meds . [No Known Home Meds] 06/28/18 [History] Past Medical History - Past Health History Medical/Surgical History: Denies Medical/Surgical History Cardiovascular History: Reports: None Respiratory History: Reports: Asthma Gastrointestinal History: Reports: Cholelithiasis Genitourinary History: Reports: None Musculoskeletal History: Reports: None Neurological History: Reports: None Psychiatric History: Reports: Anxiety, Depression Endocrine/Metabolic History: Reports: None Hematologic History: Reports: None Immunologic History: Reports: HIV Oncologic (Cancer) History: Reports: None Dermatologic History: Reports: None - Infectious Disease History Infectious Disease History: Reports: HIV-Human Immunodeficiency Virus - Past Surgical History Head Surgeries/Procedures: Reports: None HEENT Surgical History: Reports: Oral Surgery Respiratory Surgical History: Reports: None GI Surgical History: Reports: None Social & Family History - Family History Family Medical History: Noncontributory - Tobacco Use Smoking Status *Q: Never Smoker Second Hand Smoke Exposure: No - Caffeine Use Caffeine Use: Reports: None - Recreational Drug Use Recreational Drug Use: No ED ROS GENERAL - Review of Systems Review Of Systems: ROS reveals no pertinent complaints other than HPI. ED EXAM, GI/ABD - Physical Exam Exam: See Below Exam Limited By: No Limitations General Appearance: Alert, Mild Distress (Due to abdominal pain) Eyes: Bilateral: Normal Appearance Ears: Normal External Exam Nose: Normal Inspection Throat/Mouth: Normal Inspection Head: Atraumatic, Normocephalic Neck: Normal Inspection Respiratory/Chest: No Respiratory Distress, Lungs Clear, Normal Breath Sounds Cardiovascular: Normal Peripheral Pulses, Regular Rate, Rhythm, No Murmur GI/Abdominal Exam: Soft, No Distention, Tender (Diffusely) Extremities: Normal Inspection Neurological: Alert, Oriented, Normal Cognition Psychiatric: Normal Mood Skin Exam: Warm, Dry, Intact, Normal Color, No Rash Lymphatic: No Adenopathy Course - Vital Signs Last Recorded V/S: Last Vital Signs Temp 36.1 C 10/27/18 21:19 Pulse 77 10/27/18 21:19 Resp 17 10/27/18 21:19 BP 114/71 10/27/18 21:19 Pulse Ox 98 10/27/18 21:19 - Orders/Labs/Meds Labs: Laboratory Tests 10/27/18 10/27/18 Range/Units 21:50 21:50 WBC 4.16 (4.0-11.0) K/uL RBC 4.04 L (4.50-5.90) M/uL Hgb 11.3 L (13.0-17.0) g/dL Hct 34.7 L (38.0-50.0) % MCV 85.9 (80.0-98.0) fL MCH 28.0 (27.0-32.0) pg MCHC 32.6 (31.0-37.0) g/dL RDW Std Deviation 47.7 (28.0-62.0) fl RDW Coeff of Freddie 15 (11.0-15.0) % Plt Count 96 L (150-400) K/uL Neut % (Auto) 56.8 (48.0-80.0) % Lymph % (Auto) 35.8 (16.0-40.0) % Wilkin % (Auto) 4.8 (0.0-15.0) % Eos % (Auto) 2.4 (0.0-7.0) % Baso % (Auto) 0.2 (0.0-1.5) % Neut # (Auto) 2.4 (1.4-5.7) K/uL Lymph # (Auto) 1.5 (0.6-2.4) K/uL Wilkin # (Auto) 0.2 (0.0-0.8) K/uL Eos # (Auto) 0.1 (0.0-0.7) K/uL Baso # (Auto) 0.0 (0.0-0.1) K/uL Nucleated RBC % 0.0 /100WBC Nucleated RBCs # 0 K/uL Sodium 143 (136-148) mmol/L Potassium 3.7 (3.5-5.1) mmol/L Chloride 105 (98-107) mmol/L Carbon Dioxide 23.4 (21.0-32.0) mmol/L BUN 11 (7.0-18.0) mg/dL Creatinine 1.5 H (0.8-1.3) mg/dL Est Cr Clr Drug Dosing 64.82 mL/min Estimated GFR (MDRD) > 60.0 ml/min Glucose 71 L (74-106) mg/dL Calcium 9.8 (8.5-10.1) mg/dL Total Bilirubin 1.3 H (0.2-1.0) mg/dL AST 40 H (15-37) IU/L ALT 71 H (14-63) IU/L Alkaline Phosphatase 88 (46-116) U/L Total Protein 8.7 H (6.4-8.2) g/dL Albumin 4.3 (3.4-5.0) g/dL Globulin 4.4 H (2.6-4.0) g/dL Albumin/Globulin Ratio 1.0 (0.9-1.6) Meds: Medications Discontinued Medications Generic Name Dose Route Start Last Admin Trade Name Freq PRN Reason Stop Dose Admin Ketorolac Tromethamine 30 mg 10/27/18 21:41 10/27/18 21:56 Toradol IM 10/27/18 21:42 30 mg ONETIME ONE Administration Ondansetron HCl 4 mg 10/27/18 21:36 10/27/18 21:45 Zofran Odt PO 10/27/18 21:37 4 mg ONETIME ONE Administration - Re-Assessments/Exams Free Text/Narrative Re-Assessment/Exam: 10/27/18 23:11 The patient states he's feeling somewhat better. Departure - Departure Time of Disposition: 23:06 Disposition: Home, Self-Care 01 Condition: Good Clinical Impression: Cholelithiasis - Discharge Information *PRESCRIPTION DRUG MONITORING PROGRAM REVIEWED*: Not Applicable *COPY OF PRESCRIPTION DRUG MONITORING REPORT IN PATIENT RYAN: Not Applicable Instructions: Cholelithiasis Referrals: PCP,None [Primary Care Provider] - Luis Wade MD [Physician] - Forms: ED Department Discharge Additional Instructions: The following information is given to patients seen in the emergency department who are being discharged to home. This information is to outline your options for follow-up care. We provide all patients seen in our emergency department with a follow-up referral. The need for follow-up, as well as the timing and circumstances, are variable depending upon the specifics of your emergency department visit. If you don't have a primary care physician on staff, we will provide you with a referral. We always advise you to contact your personal physician following an emergency department visit to inform them of the circumstance of the visit and for follow-up with them and/or the need for any referrals to a consulting specialist. The emergency department will also refer you to a specialist when appropriate. This referral assures that you have the opportunity for follow-up care with a specialist. All of these measure are taken in an effort to provide you with optimal care, which includes your follow-up. Under all circumstances we always encourage you to contact your private physician who remains a resource for coordinating your care. When calling for follow-up care, please make the office aware that this follow-up is from your recent emergency room visit. If for any reason you are refused follow-up, please contact the [facility] Emergency Department at and asked to speak to the emergency department charge nurse. 1. You must follow-up with the clinic with Dr. Wade, a surgeon! Gallbladder surgery with normal labs is not done in the emergency room.
[2018-10-27 22:15] LABS: BLOOD UREA NITROGEN,BUN 11 mg/dL (7.0-18.0); CARBON DIOXIDE,CO2 23.4 mmol/L (21.0-32.0); CHLORIDE,CL 105 mmol/L (98-107); GLUCOSE RANDOM 71 mg/dL (74-106); POTASSIUM,K 3.7 mmol/L (3.5-5.1); SODIUM,NA 143 mmol/L (136-148)
== END 2018-10-27 23:30 | disposition home or self-care (01) ==
LOC: MW.ED 21:16
DX: K80.20 Calculus of gallbladder without cholecystitis without obstruction (principal)
CPT/HCPCS: 36415; 80053; 85025; 96372; 99284; A9270; J1885; 99283

== ENCOUNTER 2018-10-29 03:46 | Emergency (ER) | payer BC ==
[2018-10-29] MEDS ORDERED: Sodium Chloride 0.9% 10 ML Syringe FLUSH PRN (03:52)
[2018-10-29] MEDS ORDERED: Sodium Chloride 0.9% 2.5 ML Syringe FLUSH PRN (03:52)
[2018-10-29] MEDS ORDERED: Sodium Chloride 0.9% 1,000 ML IV ONE (03:52)
[2018-10-29] MEDS ORDERED: Ketorolac 30 MG/ML SDV IVPUSH ONE (03:52)
[2018-10-29] MEDS ORDERED: Ondansetron 4 MG/2 ML SDV IVPUSH ONE (03:52)
[2018-10-29] MEDS ORDERED: Pantoprazole 40 MG Vial IVPUSH ONE (03:52)
[2018-10-29] MEDS ORDERED: Sodium Chloride 0.9% 20 ML ONE (03:55)
--- NOTE | 2018-10-29 04:07 | EDM.PDOC ---
ED HPI GENERAL MEDICAL PROBLEM - General Chief Complaint: Abdominal Pain Stated Complaint: GALLBLADDER PAIN Time Seen by Provider: 10/29/18 03:50 - History of Present Illness INITIAL COMMENTS - FREE TEXT/NARRATIVE: HISTORY AND PHYSICAL: History of present illness: Patient is a 28-year-old male with HIV history who has had 9 prior visits to the ER for biliary colic and issues with his gallbladder dating back to June of this year, the last visit was 2 days ago and I was involved with that care, and presents with waking an hour ago with upper abdominal pain/right upper quadrant pain with vomiting. I saw the patient earlier this month for similar and he had been transferred at the end of September 15 [place] for a bilirubin of 10 and a possible common bile duct stone and he was there for about 4 days and did not have his gallbladder removed nor did he have an ERCP but his numbers normalized. He said that he signed out AGAINST MEDICAL ADVICE on that transfer and has been here several times since trying to get connected for referrals or for his pain and vomiting. I had given him Zofran and tramadol on a prior visit and he said the Zofran worked with the tramadol didn't really help him with the pain. He says that he has seen our surgeon Dr. Bean in the clinic and because of his platelets being on the lower side Dr. Bean did not feel comfortable doing surgery here but it is unclear whether or not a connection was made to a higher level of care such as [facility] in [place]. The patient did not independently call anybody at [facility] to schedule another appointment for a second opinion. Today he denies fever chills coughing chest pain or shortness of breath has no flank pain or urinary plane and his discomfort is similar to prior episodes in the epigastric and right upper quadrant area. Patient did have an episode of vomiting here which was food and it was not black or bloody. The patient said that he ate a processed meat earlier tonight that he has eaten in the past and has not bothered him but we did discuss a low-fat diet as it appears he has not been eating a low-fat diet. The patient has had imaging in the past documenting that he has cholelithiasis. Review of systems: As per history of present illness and below otherwise all systems reviewed and negative. Past medical history: As per history of present illness and as reviewed below otherwise noncontributory. Surgical history: As per history of present illness and as reviewed below otherwise noncontributory. Social history: No reported history of drug or alcohol abuse. Family history: As per history of present illness and as reviewed below otherwise noncontributory. Physical exam: General: Well-developed well-nourished man who is nontoxic and vital signs are noted by me. HEENT: Atraumatic, normocephalic, pupils reactive, negative for conjunctival pallor or scleral icterus, mucous membranes moist, throat clear, neck supple, nontender, trachea midline. Lungs: Clear to auscultation, breath sounds equal bilaterally, chest nontender. Heart: S1S2, regular rate and rhythm no overt murmurs Abdomen: Soft, nondistended, right upper quadrant and epigastric tenderness without rebound or guarding Negative for masses or hepatosplenomegaly. Negative for costovertebral tenderness. Pelvis: Stable nontender. Genitourinary: Deferred. Rectal: Deferred. Extremities: Atraumatic, negative for cords or calf pain. Neurovascular unremarkable. Neuro: Awake, alert, oriented. Cranial nerves II through XII unremarkable. Cerebellum unremarkable. Motor and sensory unremarkable throughout. Exam nonfocal. Diagnostics: CBC CMP amylase lipase INR UA with reflex Therapeutics: IV, IV fluids, Zofran, Toradol, Protonix I told the patient that his gallbladder/abdominal ultrasound was performed on October 03 has been sent to [facility] so that when he meets with the surgeon they can review that and confirm his diagnosis. The patient is alert he more comfortable in the ED and we discussed that the tramadol to take the edge off and that I will send him home on Zofran and tramadol. I've given him the names of the general surgeons at [facility] in [place] and have told him that he needs to call their saying that he has gallstones and he wants to make an appointment for an opinion about gallbladder removal. When he sees them he can then talk about his meeting with Dr. Bean and his concerned about his platelet count. I tried to tell him that he doesn't need paperwork or referral to make an appointment with any surgeon and if you like to reconnect with the surgeons down in [place] he can certainly do that as well. Impression: Biliary colic, vomiting Definitive disposition and diagnosis as appropriate pending reevaluation and review of above. abdominal Pain Score (Numeric/FACES): 10 - Related Data Allergies Allergy/AdvReac Type Severity Reaction Status Date / Time No Known Allergies Allergy Verified 10/29/18 03:50 Home Meds: Home Meds . [No Known Home Meds] 06/28/18 [History] Past Medical History - Past Health History Medical/Surgical History: Denies Medical/Surgical History Cardiovascular History: Reports: None Respiratory History: Reports: Asthma Gastrointestinal History: Reports: Cholelithiasis Genitourinary History: Reports: None Musculoskeletal History: Reports: None Neurological History: Reports: None Psychiatric History: Reports: Anxiety, Depression Endocrine/Metabolic History: Reports: None Hematologic History: Reports: None Immunologic History: Reports: HIV Oncologic (Cancer) History: Reports: None Dermatologic History: Reports: None - Infectious Disease History Infectious Disease History: Reports: HIV-Human Immunodeficiency Virus - Past Surgical History Head Surgeries/Procedures: Reports: None HEENT Surgical History: Reports: Oral Surgery Respiratory Surgical History: Reports: None GI Surgical History: Reports: None Social & Family History - Family History Family Medical History: Noncontributory - Tobacco Use Smoking Status *Q: Never Smoker - Caffeine Use Caffeine Use: Reports: None - Recreational Drug Use Recreational Drug Use: No ED ROS GENERAL - Review of Systems Review Of Systems: ROS reveals no pertinent complaints other than HPI. ED EXAM, GENERAL - Physical Exam Exam: See Below (See dictation) Course - Vital Signs Last Recorded V/S: Last Vital Signs Temp 36.3 C 10/29/18 03:51 Pulse 63 10/29/18 03:51 Resp 18 10/29/18 03:51 BP 126/79 10/29/18 03:51 Pulse Ox 97 10/29/18 03:51 - Orders/Labs/Meds Orders: Active Orders 24 hr Category Date Time Status UA RFX JOVANI AND CULT IF INDIC [URIN] Stat Lab 10/29/18 03:51 Ordered Sodium Chloride 0.9% [Normal Saline] 1,000 ml Med 10/29/18 03:52 Active IV STAT Sodium Chloride 0.9% [Saline Flush] Med 10/29/18 03:52 Active 10 ml FLUSH ASDIRECTED PRN Sodium Chloride 0.9% [Saline Flush] Med 10/29/18 03:52 Active 2.5 ml FLUSH ASDIRECTED PRN Saline Lock Insert [OM.PC] Stat Oth 10/29/18 03:51 Ordered Medication Orders Sodium Chloride (Normal Saline) 1,000 mls @ 999 mls/hr IV STAT ONE Stop: 10/29/18 04:52 Last Admin: 10/29/18 03:56 Dose: 999 mls/hr Sodium Chloride (Saline Flush) 10 ml FLUSH ASDIRECTED PRN PRN Reason: Keep Vein Open Sodium Chloride (Saline Flush) 2.5 ml FLUSH ASDIRECTED PRN PRN Reason: Keep Vein Open Labs: Laboratory Tests 10/29/18 10/29/18 10/29/18 Range/Units 04:05 04:05 04:05 WBC 3.79 L (4.0-11.0) K/uL RBC 4.18 L (4.50-5.90) M/uL Hgb 11.6 L (13.0-17.0) g/dL Hct 36.0 L (38.0-50.0) % MCV 86.1 (80.0-98.0) fL MCH 27.8 (27.0-32.0) pg MCHC 32.2 (31.0-37.0) g/dL RDW Std Deviation 48.6 (28.0-62.0) fl RDW Coeff of Freddie 15 (11.0-15.0) % Plt Count 83 L (150-400) K/uL Neut % (Auto) 8.6 L (48.0-80.0) % Lymph % (Auto) 79.2 H (16.0-40.0) % [place] % (Auto) 7.9 (0.0-15.0) % Eos % (Auto) 4.0 (0.0-7.0) % Baso % (Auto) 0.3 (0.0-1.5) % Neut # (Auto) 0.3 L (1.4-5.7) K/uL Lymph # (Auto) 3.0 H (0.6-2.4) K/uL [place] # (Auto) 0.3 (0.0-0.8) K/uL Eos # (Auto) 0.2 (0.0-0.7) K/uL Baso # (Auto) 0.0 (0.0-0.1) K/uL Nucleated RBC % 0.0 /100WBC Nucleated RBCs # 0 K/uL INR 1.12 Sodium 143 (136-148) mmol/L Potassium 3.7 (3.5-5.1) mmol/L Chloride 106 (98-107) mmol/L Carbon Dioxide 28.8 (21.0-32.0) mmol/L BUN 14 (7.0-18.0) mg/dL Creatinine 1.5 H (0.8-1.3) mg/dL Est Cr Clr Drug Dosing 64.92 mL/min Estimated GFR (MDRD) > 60.0 ml/min Glucose 107 H (74-106) mg/dL Calcium 9.3 (8.5-10.1) mg/dL Total Bilirubin 1.2 H (0.2-1.0) mg/dL AST 55 H (15-37) IU/L ALT 65 H (14-63) IU/L Alkaline Phosphatase 86 (46-116) U/L Total Protein 8.0 (6.4-8.2) g/dL Albumin 4.0 (3.4-5.0) g/dL Globulin 4.0 (2.6-4.0) g/dL Albumin/Globulin Ratio 1.0 (0.9-1.6) Amylase 82 (25-115) U/L Lipase 141 (73-393) U/L Meds: Medications Generic Name Dose Route Start Last Admin Trade Name Erin PRN Reason Stop Dose Admin Sodium Chloride 1,000 mls @ 999 mls/hr 10/29/18 03:52 10/29/18 03:56 Normal Saline IV 10/29/18 04:52 999 mls/hr STAT ONE Administration Sodium Chloride 10 ml 10/29/18 03:52 Saline Flush FLUSH ASDIRECTED PRN Keep Vein Open Sodium Chloride 2.5 ml 10/29/18 03:52 Saline Flush FLUSH ASDIRECTED PRN Keep Vein Open Discontinued Medications Generic Name Dose Route Start Last Admin Trade Name Freq PRN Reason Stop Dose Admin Sodium Chloride Confirm 10/29/18 03:55 Normal Saline Administered 10/29/18 03:56 Dose 20 mls @ as directed .ROUTE .STK-MED ONE Ketorolac Tromethamine 30 mg 10/29/18 03:52 10/29/18 03:57 Toradol IVPUSH 10/29/18 03:53 30 mg ONETIME ONE Administration Ondansetron HCl 4 mg 10/29/18 03:52 10/29/18 03:57 Zofran IVPUSH 10/29/18 03:53 4 mg ONETIME ONE Administration Pantoprazole Sodium 80 mg 10/29/18 03:52 10/29/18 03:57 Protonix Iv IVPUSH 10/29/18 03:53 80 mg .BOLUS ONE Administration Tramadol HCl 100 mg 10/29/18 04:25 Ultram PO 10/29/18 04:26 ONETIME ONE Departure - Departure Time of Disposition: 04:45 Disposition: Home, Self-Care 01 Condition: Good Clinical Impression: Biliary colic Vomiting Qualifiers: Vomiting type: unspecified Vomiting Intractability: non-intractable Nausea presence: with nausea Qualified Code(s): R11.2 - Nausea with vomiting, unspecified - Discharge Information Referrals: PCP,None [Primary Care Provider] - Forms: ED Department Discharge Additional Instructions: The following information is given to patients seen in the emergency department who are being discharged to home. This information is to outline your options for follow-up care. We provide all patients seen in our emergency department with a follow-up referral. The need for follow-up, as well as the timing and circumstances, are variable depending upon the specifics of your emergency department visit. If you don't have a primary care physician on staff, we will provide you with a referral. We always advise you to contact your personal physician following an emergency department visit to inform them of the circumstance of the visit and for follow-up with them and/or the need for any referrals to a consulting specialist. The emergency department will also refer you to a specialist when appropriate. This referral assures that you have the opportunity for followup care with a specialist. All of these measure are taken in an effort to provide you with optimal care, which includes your followup. Under all circumstances we always encourage you to contact your private physician who remains a resource for coordinating your care. When calling for followup care, please make the office aware that this follow-up is from your recent emergency room visit. If for any reason you are refused follow-up, please contact the [facility] emergency department at and ask to speak to the emergency department charge nurse. [facility] Professional [facility] [address] [place] [id number] Bean to get assistance to connect with the surgeon at [facility] or just call one of the surgeons/the office and ask to schedule a consultation for your gallstones stating that he wanted get a second opinion for gallbladder removal. Use the medication you have been prescribed tramadol and Zofran as needed as we discussed and please eat a low-fat diet which is bland as we discussed. Return to ER as needed and as discussed When you meet with the surgeon at [facility] please make sure that they know that your abdominal ultrasound from October 03 is in their system for their review. - My Orders Last 24 Hours: My Active Orders 10/29/18 03:51 UA RFX JOVANI AND CULT IF INDIC [URIN] Stat Saline Lock Insert [OM.PC] Stat 10/29/18 03:52 Sodium Chloride 0.9% [Normal Saline] 1,000 ml IV STAT Sodium Chloride 0.9% [Saline Flush] 10 ml FLUSH ASDIRECTED PRN Sodium Chloride 0.9% [Saline Flush] 2.5 ml FLUSH ASDIRECTED PRN - Assessment/Plan Last 24 Hours: My Active Orders 10/29/18 03:51 UA RFX JOVANI AND CULT IF INDIC [URIN] Stat Saline Lock Insert [OM.PC] Stat 10/29/18 03:52 Sodium Chloride 0.9% [Normal Saline] 1,000 ml IV STAT Sodium Chloride 0.9% [Saline Flush] 10 ml FLUSH ASDIRECTED PRN Sodium Chloride 0.9% [Saline Flush] 2.5 ml FLUSH ASDIRECTED PRN
[2018-10-29] MEDS ORDERED: traMADol 50 MG Tab PO ONE (04:25)
[2018-10-29 04:28] LABS: CHLORIDE,CL 106 mmol/L (98-107); SODIUM,NA 143 mmol/L (136-148)
== END 2018-10-29 05:05 | disposition home or self-care (01) ==
LOC: MW.ED 03:46
DX: K80.50 Calculus of bile duct without cholangitis or cholecystitis without obstruction (principal)
CPT/HCPCS: 36415; 80053; 81003; 82150; 83690; 85025; 85610; 96361; 96374; 96375; 99284; A9270; C9113; J1885; J2405; J7040; 99283

== ENCOUNTER 2018-10-31 09:16 | Emergency (ER) | payer BC ==
[2018-10-31] MEDS ORDERED: Ketorolac 60 MG/2 ML SDV IM ONE (10:12)
--- NOTE | 2018-10-31 10:13 | EDM.PDOC ---
ED HPI GENERAL MEDICAL PROBLEM - General Chief Complaint: Abdominal Pain Stated Complaint: GALLBLADDER PAIN Time Seen by Provider: 10/31/18 10:13 Source of Information: Reports: Patient History Limitations: Reports: No Limitations - History of Present Illness INITIAL COMMENTS - FREE TEXT/NARRATIVE: HISTORY AND PHYSICAL: History of present illness: Patient is a 38-year-old male well-known to the ED presents with complaint of upper abdominal pain. He states he has a history of gallbladder pain secondary to gallstones. He takes tramadol and zofran for his symptoms but states it's not working. He has been vomiting everytime he takes the medication. He has seen a provider in [place] but has not yet scheduled a surgery follow up. He denies fevers, chills, chest pain, SOB, diarrhea, urinary symptoms. Review of systems: As per history of present illness and below otherwise all systems reviewed and negative. Past medical history: As per history of present illness and as reviewed below otherwise noncontributory. Surgical history: As per history of present illness and as reviewed below otherwise noncontributory. Social history: No reported history of drug or alcohol abuse. Family history: As per history of present illness and as reviewed below otherwise noncontributory. Physical exam: General: Patient sitting comfortably in no acute distress and nontoxic appearing HEENT: Atraumatic, normocephalic, pupils reactive, negative for conjunctival pallor or scleral icterus, mucous membranes moist, throat clear, neck supple, nontender, trachea midline. No meningeal signs. Lungs: Clear to auscultation, breath sounds equal bilaterally, chest nontender. Heart: S1S2, regular, negative for clicks, rubs, or overt murmur. Abdomen: Moderate tenderness to palpation of the upper abdomen. Soft, nondistended. Negative for masses or hepatosplenomegaly. Negative for costovertebral tenderness. No rigidity, rebound, guarding. Pelvis: Stable nontender. Genitourinary: Deferred. Rectal: Deferred. Extremities: Atraumatic, negative for cords or calf pain. Neurovascular unremarkable. Neuro: Awake, alert, oriented. Cranial nerves II through XII unremarkable. Cerebellum unremarkable. Motor and sensory unremarkable throughout. Exam nonfocal. Notes: Diagnostics: CBC, CMP, UA, lipase, RUQ US Therapeutics: Toradol 60mg IM Prescriptions: [place] 5/325 (#10) Impression: Biliary colic, gallstones, RUQ pain Plan: You may take norco as needed for severe pain, do not take while driving as it may make you drowsy Follow up with general surgery in [place] as discussed Return to ED as needed as discussed Definitive disposition and diagnosis as appropriate pending reevaluation and review of above. abdomen Pain Score (Numeric/FACES): 10 - Related Data Allergies Allergy/AdvReac Type Severity Reaction Status Date / Time No Known Allergies Allergy Verified 10/31/18 11:34 Home Meds: Home Meds Ondansetron HCl [Zofran] 4 mg PO ASDIRECTED 10/31/18 [History] traMADol HCl [Tramadol HCl] 100 mg PO Q8HR 10/31/18 [History] Past Medical History - Past Health History Medical/Surgical History: Denies Medical/Surgical History Cardiovascular History: Reports: None Respiratory History: Reports: Asthma Gastrointestinal History: Reports: Cholelithiasis Genitourinary History: Reports: None Musculoskeletal History: Reports: None Neurological History: Reports: None Psychiatric History: Reports: Anxiety, Depression Endocrine/Metabolic History: Reports: None Hematologic History: Reports: None Immunologic History: Reports: HIV Oncologic (Cancer) History: Reports: None Dermatologic History: Reports: None - Infectious Disease History Infectious Disease History: Reports: HIV-Human Immunodeficiency Virus - Past Surgical History Head Surgeries/Procedures: Reports: None HEENT Surgical History: Reports: Oral Surgery Respiratory Surgical History: Reports: None GI Surgical History: Reports: None Social & Family History - Family History Family Medical History: Noncontributory - Caffeine Use Caffeine Use: Reports: None ED ROS GENERAL - Review of Systems Review Of Systems: ROS reveals no pertinent complaints other than HPI. ED EXAM, GI/ABD - Physical Exam Exam: See Below (see dictation) Course - Vital Signs Last Recorded V/S: Last Vital Signs Temp 97.3 F 10/31/18 09:52 Pulse 56 L 10/31/18 09:52 Resp 16 10/31/18 09:52 BP 112/73 10/31/18 09:52 Pulse Ox 97 10/31/18 09:52 - Orders/Labs/Meds Labs: Laboratory Tests 10/31/18 10/31/18 10/31/18 Range/Units 10:16 10:16 13:30 WBC 3.00 L (4.0-11.0) K/uL RBC 4.16 L (4.50-5.90) M/uL Hgb 11.7 L (13.0-17.0) g/dL Hct 35.8 L (38.0-50.0) % MCV 86.1 (80.0-98.0) fL MCH 28.1 (27.0-32.0) pg MCHC 32.7 (31.0-37.0) g/dL RDW Std Deviation 46.1 (28.0-62.0) fl RDW Coeff of Freddie 15 (11.0-15.0) % Plt Count 74 L (150-400) K/uL Neut % (Auto) 47.0 L (48.0-80.0) % Lymph % (Auto) 41.0 H (16.0-40.0) % Power % (Auto) 9.7 (0.0-15.0) % Eos % (Auto) 2.0 (0.0-7.0) % Baso % (Auto) 0.3 (0.0-1.5) % Neut # (Auto) 1.4 (1.4-5.7) K/uL Lymph # (Auto) 1.2 (0.6-2.4) K/uL Power # (Auto) 0.3 (0.0-0.8) K/uL Eos # (Auto) 0.1 (0.0-0.7) K/uL Baso # (Auto) 0.0 (0.0-0.1) K/uL Nucleated RBC % 0.0 /100WBC Nucleated RBCs # 0 K/uL Sodium 144 (136-148) mmol/L Potassium 4.3 (3.5-5.1) mmol/L Chloride 106 (98-107) mmol/L Carbon Dioxide 29.4 (21.0-32.0) mmol/L BUN 15 (7.0-18.0) mg/dL Creatinine 1.2 (0.8-1.3) mg/dL Est Cr Clr Drug Dosing TNP Estimated GFR (MDRD) > 60.0 ml/min Glucose 82 (74-106) mg/dL Calcium 9.4 (8.5-10.1) mg/dL Total Bilirubin 1.4 H (0.2-1.0) mg/dL AST 177 H (15-37) IU/L ALT 109 H (14-63) IU/L Alkaline Phosphatase 99 (46-116) U/L Total Protein 8.4 H (6.4-8.2) g/dL Albumin 3.9 (3.4-5.0) g/dL Globulin 4.5 H (2.6-4.0) g/dL Albumin/Globulin Ratio 0.9 (0.9-1.6) Lipase 114 (73-393) U/L Urine Color YELLOW Urine Appearance CLEAR Urine pH 6.5 (5.0-8.0) Ur Specific [place] 1.020 (1.001-1.035) Urine Protein NEGATIVE (NEGATIVE) mg/dL Urine Glucose (UA) NEGATIVE (NEGATIVE) mg/dL Urine Ketones NEGATIVE (NEGATIVE) mg/dL Urine Occult Blood NEGATIVE (NEGATIVE) Urine Nitrite NEGATIVE (NEGATIVE) Urine Bilirubin SMALL H (NEGATIVE) Urine Urobilinogen >=8.0 H (<2.0) EU/dL Ur Leukocyte Esterase NEGATIVE (NEGATIVE) Meds: Medications Discontinued Medications Generic Name Dose Route Start Last Admin Trade Name Freq PRN Reason Stop Dose Admin Ketorolac Tromethamine 60 mg 10/31/18 10:12 10/31/18 10:28 Toradol IM 10/31/18 10:13 60 mg ONETIME ONE Administration Departure - Departure Time of Disposition: 13:28 Disposition: Home, Self-Care 01 Condition: Good Clinical Impression: Biliary pain, Gallstones - Discharge Information Referrals: PCP,Unknown [Primary Care Provider] - Forms: ED Department Discharge Additional Instructions: The following information is given to patients seen in the emergency department who are being discharged to home. This information is to outline your options for follow-up care. We provide all patients seen in our emergency department with a follow-up referral. The need for follow-up, as well as the timing and circumstances, are variable depending upon the specifics of your emergency department visit. If you don't have a primary care physician on staff, we will provide you with a referral. We always advise you to contact your personal physician following an emergency department visit to inform them of the circumstance of the visit and for follow-up with them and/or the need for any referrals to a consulting specialist. The emergency department will also refer you to a specialist when appropriate. This referral assures that you have the opportunity for follow-up care with a specialist. All of these measure are taken in an effort to provide you with optimal care, which includes your follow-up. Under all circumstances we always encourage you to contact your private physician who remains a resource for coordinating your care. When calling for follow-up care, please make the office aware that this follow-up is from your recent emergency room visit. If for any reason you are refused follow-up, please contact the [facility] Emergency Department at and asked to speak to the emergency department charge nurse. [facility] [address] [place] [id number] [facility] [address] [place] [id number] You may take norco as needed for severe pain, do not take while driving as it may make you drowsy Follow up with general surgery in [place] as discussed Return to ED as needed as discussed
[2018-10-31 10:51] LABS: CHLORIDE,CL 106 mmol/L (98-107); SODIUM,NA 144 mmol/L (136-148)
--- NOTE | 2018-10-31 13:10 | US ---
INDICATION: Abdominal pain September COMPARISON: October 03, 2018 TECHNIQUE: Real time johnson scale imaging and color Doppler analysis was performed of the right upper quadrant. FINDINGS: The patient`s liver is of normal size and has uniform echogenicity. There is a normal appearance of the hepatic IVC and proximal abdominal aorta. There is no evidence of ascites. Multiple slightly echogenic and mobile gallstones are noted within the dependent aspect of the gallbladder lumen. Negative sonographic Nunes`s sign. The gallbladder wall measures 2-3 mm in thickness. The common bile duct is of normal size and measures 4-5 mm in diameter at the level of the jarrod hepatis. The pancreas appears normal. There is no evidence of a stone or hydronephrosis within the right kidney. The right kidney measures 9.2 cm in length. IMPRESSION: Cholelithiasis. Multiple mobile gallstones. No biliary obstruction. Dictated by Peng Crane MD @ Oct 31 2018 1:03PM Signed by Dr. Peng Crane @ Oct 31 2018 1:10PM
== END 2018-10-31 14:03 | disposition home or self-care (01) ==
LOC: MW.ED 09:16
DX: K80.70 Calculus of gallbladder and bile duct without cholecystitis without obstruction (principal); Z79.899 Other long term (current) drug therapy
CPT/HCPCS: 36415; 76705; 80053; 81003; 83690; 85025; 96372; 99284; J1885; 99283

== ENCOUNTER 2018-12-26 22:27 | Emergency (ER) | payer BC ==
[2018-12-26] MEDS ORDERED: Ondansetron 4 MG/2 ML SDV IVPUSH ONE (22:39)
[2018-12-26] MEDS ORDERED: Sodium Chloride 0.9% 1,000 ML IV ONE (22:39)
--- NOTE | 2018-12-26 22:39 | EDM.PDOC ---
<Matt Messina - Last Filed: 12/27/18 00:15> ED HPI GENERAL MEDICAL PROBLEM - General Chief Complaint: Abdominal Pain Stated Complaint: GALLBLADDER ISSUES Time Seen by Provider: 12/26/18 22:31 - Related Data Allergies Allergy/AdvReac Type Severity Reaction Status Date / Time No Known Allergies Allergy Verified 12/26/18 22:31 Home Meds: Home Meds . [No Known Home Meds] 12/26/18 [History] Course - Vital Signs Last Recorded V/S: Last Vital Signs Temp 98.7 F 12/26/18 22:29 Pulse 69 12/27/18 00:29 Resp 18 12/27/18 00:29 BP 127/85 12/27/18 00:29 Pulse Ox 99 12/27/18 00:29 - Orders/Labs/Meds Labs: Laboratory Tests 12/26/18 12/26/18 12/26/18 Range/Units 22:30 22:30 23:30 WBC 4.74 (4.0-11.0) K/uL RBC 4.85 (4.50-5.90) M/uL Hgb 13.1 (13.0-17.0) g/dL Hct 38.8 (38.0-50.0) % MCV 80.0 (80.0-98.0) fL MCH 27.0 (27.0-32.0) pg MCHC 33.8 (31.0-37.0) g/dL RDW Std Deviation 39.9 (28.0-62.0) fl RDW Coeff of Freddie 14 (11.0-15.0) % Plt Count 111 L (150-400) K/uL Neut % (Auto) 29.7 L (48.0-80.0) % Lymph % (Auto) 60.1 H (16.0-40.0) % [place] % (Auto) 3.0 (0.0-15.0) % Eos % (Auto) 7.0 (0.0-7.0) % Baso % (Auto) 0.2 (0.0-1.5) % Neut # (Auto) 1.4 (1.4-5.7) K/uL Lymph # (Auto) 2.9 H (0.6-2.4) K/uL [place] # (Auto) 0.1 (0.0-0.8) K/uL Eos # (Auto) 0.3 (0.0-0.7) K/uL Baso # (Auto) 0.0 (0.0-0.1) K/uL Nucleated RBC % 0.0 /100WBC Nucleated RBCs # 0 K/uL Sodium 141 (136-148) mmol/L Potassium 3.7 (3.5-5.1) mmol/L Chloride 103 (98-107) mmol/L Carbon Dioxide 28.7 (21.0-32.0) mmol/L BUN 6 L (7.0-18.0) mg/dL Creatinine 1.3 (0.8-1.3) mg/dL Est Cr Clr Drug Dosing TNP Estimated GFR (MDRD) > 60.0 ml/min Glucose 87 (74-106) mg/dL Calcium 8.9 (8.5-10.1) mg/dL Total Bilirubin 1.5 H (0.2-1.0) mg/dL AST 85 H (15-37) IU/L ALT 39 (14-63) IU/L Alkaline Phosphatase 91 (46-116) U/L Total Protein 8.8 H (6.4-8.2) g/dL Albumin 3.4 (3.4-5.0) g/dL Globulin 5.4 H (2.6-4.0) g/dL Albumin/Globulin Ratio 0.6 L (0.9-1.6) Lipase 134 (73-393) U/L Urine Color YELLOW Urine Appearance CLEAR Urine pH 8.5 H (5.0-8.0) Ur Specific [place] 1.010 (1.001-1.035) Urine Protein NEGATIVE (NEGATIVE) mg/dL Urine Glucose (UA) NEGATIVE (NEGATIVE) mg/dL Urine Ketones NEGATIVE (NEGATIVE) mg/dL Urine Occult Blood NEGATIVE (NEGATIVE) Urine Nitrite NEGATIVE (NEGATIVE) Urine Bilirubin NEGATIVE (NEGATIVE) Urine Urobilinogen 2.0 H (<2.0) EU/dL Ur Leukocyte Esterase NEGATIVE (NEGATIVE) Urine Opiates Screen (NEGATIVE) Ur Oxycodone Screen (NEGATIVE) Urine Methadone Screen (NEGATIVE) Ur Barbiturates Screen (NEGATIVE) Ur Phencyclidine Scrn (NEGATIVE) Ur Amphetamine Screen (NEGATIVE) U Methamphetamines Scrn (NEGATIVE) U Benzodiazepines Scrn (NEGATIVE) U Cocaine Metab Screen (NEGATIVE) U Marijuana (THC) Screen (NEGATIVE) 12/26/18 Range/Units 23:30 WBC (4.0-11.0) K/uL RBC (4.50-5.90) M/uL Hgb (13.0-17.0) g/dL Hct (38.0-50.0) % MCV (80.0-98.0) fL MCH (27.0-32.0) pg MCHC (31.0-37.0) g/dL RDW Std Deviation (28.0-62.0) fl RDW Coeff of Freddie (11.0-15.0) % Plt Count (150-400) K/uL Neut % (Auto) (48.0-80.0) % Lymph % (Auto) (16.0-40.0) % [place] % (Auto) (0.0-15.0) % Eos % (Auto) (0.0-7.0) % Baso % (Auto) (0.0-1.5) % Neut # (Auto) (1.4-5.7) K/uL Lymph # (Auto) (0.6-2.4) K/uL [place] # (Auto) (0.0-0.8) K/uL Eos # (Auto) (0.0-0.7) K/uL Baso # (Auto) (0.0-0.1) K/uL Nucleated RBC % /100WBC Nucleated RBCs # K/uL Sodium (136-148) mmol/L Potassium (3.5-5.1) mmol/L Chloride (98-107) mmol/L Carbon Dioxide (21.0-32.0) mmol/L BUN (7.0-18.0) mg/dL Creatinine (0.8-1.3) mg/dL Est Cr Clr Drug Dosing Estimated GFR (MDRD) ml/min Glucose (74-106) mg/dL Calcium (8.5-10.1) mg/dL Total Bilirubin (0.2-1.0) mg/dL AST (15-37) IU/L ALT (14-63) IU/L Alkaline Phosphatase (46-116) U/L Total Protein (6.4-8.2) g/dL Albumin (3.4-5.0) g/dL Globulin (2.6-4.0) g/dL Albumin/Globulin Ratio (0.9-1.6) Lipase (73-393) U/L Urine Color Urine Appearance Urine pH (5.0-8.0) Ur Specific [place] (1.001-1.035) Urine Protein (NEGATIVE) mg/dL Urine Glucose (UA) (NEGATIVE) mg/dL Urine Ketones (NEGATIVE) mg/dL Urine Occult Blood (NEGATIVE) Urine Nitrite (NEGATIVE) Urine Bilirubin (NEGATIVE) Urine Urobilinogen (<2.0) EU/dL Ur Leukocyte Esterase (NEGATIVE) Urine Opiates Screen NEGATIVE (NEGATIVE) Ur Oxycodone Screen NEGATIVE (NEGATIVE) Urine Methadone Screen NEGATIVE (NEGATIVE) Ur Barbiturates Screen NEGATIVE (NEGATIVE) Ur Phencyclidine Scrn NEGATIVE (NEGATIVE) Ur Amphetamine Screen NEGATIVE (NEGATIVE) U Methamphetamines Scrn NEGATIVE (NEGATIVE) U Benzodiazepines Scrn NEGATIVE (NEGATIVE) U Cocaine Metab Screen NEGATIVE (NEGATIVE) U Marijuana (THC) Screen POSITIVE (NEGATIVE) Meds: Medications Discontinued Medications Generic Name Dose Route Start Last Admin Trade Name Freq PRN Reason Stop Dose Admin Sodium Chloride 1,000 mls @ 999 mls/hr 12/26/18 22:39 12/26/18 22:47 Normal Saline IV 12/26/18 23:39 999 mls/hr BOLUS ONE Administration Ondansetron HCl 4 mg 12/26/18 22:39 12/26/18 22:47 Zofran IVPUSH 12/26/18 22:40 4 mg ONETIME ONE Administration Departure - Departure Disposition: Home, Self-Care 01 Clinical Impression: Biliary colic, Medical non-compliance - Discharge Information Instructions: Biliary Colic, Adult Referrals: Luis Wade MD [Physician] - Oxana Olmedo MD [Physician] - PCP,None [Primary Care Provider] - Forms: ED Department Discharge Additional Instructions: The following information is given to patients seen in the emergency department who are being discharged to home. This information is to outline your options for follow-up care. We provide all patients seen in our emergency department with a follow-up referral. The need for follow-up, as well as the timing and circumstances, are variable depending upon the specifics of your emergency department visit. If you don't have a primary care physician on staff, we will provide you with a referral. We always advise you to contact your personal physician following an emergency department visit to inform them of the circumstance of the visit and for follow-up with them and/or the need for any referrals to a consulting specialist. The emergency department will also refer you to a specialist when appropriate. This referral assures that you have the opportunity for follow-up care with a specialist. All of these measure are taken in an effort to provide you with optimal care, which includes your follow-up. Under all circumstances we always encourage you to contact your private physician who remains a resource for coordinating your care. When calling for follow-up care, please make the office aware that this follow-up is from your recent emergency room visit. If for any reason you are refused follow-up, please contact the [facility] Emergency Department at and asked to speak to the emergency department charge nurse. [facility] [address] [place] [id number] [address] [facility] - General Surgery Professional Building [address] [place] [address], [address] [place] [address] 1. Follow up with General surgery and your primary care provider as discussed. Has been provided above for you to call and set up an appointment. 2. You can alternate ibuprofen and Tylenol as directed for pain and discomfort. Return to the ED as needed and as discussed. <Leonora Boss - Last Filed: 12/27/18 09:56> ED HPI GENERAL MEDICAL PROBLEM - General Source of Information: Reports: Patient History Limitations: Reports: No Limitations - History of Present Illness INITIAL COMMENTS - FREE TEXT/NARRATIVE: HISTORY AND PHYSICAL: History of present illness: Patient is a 28-year-old male presents to the ED today with concern of "gallbladder attack". Patient states he has a known history of gallbladder issues but does not have the money to get out his gallbladder. Patient states he has had stones in his gallbladder on past imaging. Patient states he follows with a general surgery and my not but has not been able to schedule a day to get his gallbladder out because he cannot afford the co-pay according the patient. Patient states that the pain is worse if he eats and better if he does not eat. Patient states the pain is unchanged from his past gallbladder issues but is just occurring again. Patient has a history of HIV but denies any other health history. Patient denies fever, chills, chest pain, shortness of breath, or cough. Denies headache, neck stiff ness, change in vision, syncope, or near syncope. Denies nausea, vomiting, diarrhea, constipation, or dysuria. Has not noted any blood in urine or stool. Patient has been eating and drinking appropriately. Review of systems: As per history of present illness and below otherwise all systems reviewed and negative. Past medical history: As per history of present illness and as reviewed below otherwise noncontributory. Surgical history: As per history of present illness and as reviewed below otherwise noncontributory. Social history: See social history for further information Family history: As per history of present illness and as reviewed below otherwise noncontributory. Physical exam: General: Patient is alert, oriented, and in no acute distress. Patient sitting comfortably on exam table. HEENT: Atraumatic, normocephalic, pupils equal and reactive bilaterally, negative for conjunctival pallor or scleral icterus, mucous membranes moist, TMs normal bilaterally, throat clear, neck supple, nontender, trachea midline. No drooling or trismus noted. No meningeal signs. No hot potato voice noted. Lungs: Clear to auscultation, breath sounds equal bilaterally, chest nontender. Heart: S1S2, regular rate and rhythm without overt murmur Abdomen: Soft, nondistended, moderate RUQ pain without guarding or rebound. Negative for masses or hepatosplenomegaly. Negative for costovertebral tenderness. Pelvis: Stable nontender. Genitourinary: Deferred. Rectal: Deferred. Skin: Intact, warm, dry. No lesions or rashes noted. Extremities: Atraumatic, negative for cords or calf pain. Neurovascular unremarkable. Neuro: Awake, alert, oriented. Cranial nerves II through XII unremarkable. Cerebellum unremarkable. Motor and sensory unremarkable throughout. Exam nonfocal. Notes: Discussed the importance for follow-up with a primary care provider and to reestablish with a general surgeon for his gallbladder. Voices understanding and is agreeable to plan of care. Denies any further questions or concerns at this time. Diagnostics: CBC, CMP, UA, lipase, right upper quadrant ultrasound, urine drug screen Therapeutics: Zofran, Saline Prescription: None Impression: Biliary colic Medical non-compliance Plan: 1. Follow up with General surgery and your primary care provider as discussed. Has been provided above for you to call and set up an appointment. 2. You can alternate ibuprofen and Tylenol as directed for pain and discomfort. Return to the ED as needed and as discussed. Definitive disposition and diagnosis as appropriate pending reevaluation and review of above. Abdomen Pain Score (Numeric/FACES): 10 Past Medical History - Past Health History Medical/Surgical History: Denies Medical/Surgical History HEENT History: Reports: None Cardiovascular History: Reports: None Respiratory History: Reports: Asthma Gastrointestinal History: Reports: Cholelithiasis Genitourinary History: Reports: None Musculoskeletal History: Reports: None Neurological History: Reports: None Psychiatric History: Reports: Anxiety, Depression Endocrine/Metabolic History: Reports: None Hematologic History: Reports: None Immunologic History: Reports: HIV Oncologic (Cancer) History: Reports: None Dermatologic History: Reports: None - Infectious Disease History Infectious Disease History: Reports: HIV-Human Immunodeficiency Virus - Past Surgical History Head Surgeries/Procedures: Reports: None HEENT Surgical History: Reports: Oral Surgery Respiratory Surgical History: Reports: None GI Surgical History: Reports: None Social & Family History - Family History Family Medical History: Noncontributory - Tobacco Use Smoking Status *Q: Never Smoker - Caffeine Use Caffeine Use: Reports: None - Recreational Drug Use Recreational Drug Use: No ED ROS GENERAL - Review of Systems Review Of Systems: ROS reveals no pertinent complaints other than HPI. ED EXAM, GENERAL - Physical Exam Exam: See Below (See dictation) Course - Orders/Labs/Meds Labs: Laboratory Tests 12/26/18 12/26/18 12/26/18 Range/Units 22:30 22:30 23:30 WBC 4.74 (4.0-11.0) K/uL RBC 4.85 (4.50-5.90) M/uL Hgb 13.1 (13.0-17.0) g/dL Hct 38.8 (38.0-50.0) % MCV 80.0 (80.0-98.0) fL MCH 27.0 (27.0-32.0) pg MCHC 33.8 (31.0-37.0) g/dL RDW Std Deviation 39.9 (28.0-62.0) fl RDW Coeff of Freddie 14 (11.0-15.0) % Plt Count 111 L (150-400) K/uL Neut % (Auto) 29.7 L (48.0-80.0) % Lymph % (Auto) 60.1 H (16.0-40.0) % [place] % (Auto) 3.0 (0.0-15.0) % Eos % (Auto) 7.0 (0.0-7.0) % Baso % (Auto) 0.2 (0.0-1.5) % Neut # (Auto) 1.4 (1.4-5.7) K/uL Lymph # (Auto) 2.9 H (0.6-2.4) K/uL [place] # (Auto) 0.1 (0.0-0.8) K/uL Eos # (Auto) 0.3 (0.0-0.7) K/uL Baso # (Auto) 0.0 (0.0-0.1) K/uL Nucleated RBC % 0.0 /100WBC Nucleated RBCs # 0 K/uL Sodium 141 (136-148) mmol/L Potassium 3.7 (3.5-5.1) mmol/L Chloride 103 (98-107) mmol/L Carbon Dioxide 28.7 (21.0-32.0) mmol/L BUN 6 L (7.0-18.0) mg/dL Creatinine 1.3 (0.8-1.3) mg/dL Est Cr Clr Drug Dosing TNP Estimated GFR (MDRD) > 60.0 ml/min Glucose 87 (74-106) mg/dL Calcium 8.9 (8.5-10.1) mg/dL Total Bilirubin 1.5 H (0.2-1.0) mg/dL AST 85 H (15-37) IU/L ALT 39 (14-63) IU/L Alkaline Phosphatase 91 (46-116) U/L Total Protein 8.8 H (6.4-8.2) g/dL Albumin 3.4 (3.4-5.0) g/dL Globulin 5.4 H (2.6-4.0) g/dL Albumin/Globulin Ratio 0.6 L (0.9-1.6) Lipase 134 (73-393) U/L Urine Color YELLOW Urine Appearance CLEAR Urine pH 8.5 H (5.0-8.0) Ur Specific [place] 1.010 (1.001-1.035) Urine Protein NEGATIVE (NEGATIVE) mg/dL Urine Glucose (UA) NEGATIVE (NEGATIVE) mg/dL Urine Ketones NEGATIVE (NEGATIVE) mg/dL Urine Occult Blood NEGATIVE (NEGATIVE) Urine Nitrite NEGATIVE (NEGATIVE) Urine Bilirubin NEGATIVE (NEGATIVE) Urine Urobilinogen 2.0 H (<2.0) EU/dL Ur Leukocyte Esterase NEGATIVE (NEGATIVE) Urine Opiates Screen (NEGATIVE) Ur Oxycodone Screen (NEGATIVE) Urine Methadone Screen (NEGATIVE) Ur Barbiturates Screen (NEGATIVE) Ur Phencyclidine Scrn (NEGATIVE) Ur Amphetamine Screen (NEGATIVE) U Methamphetamines Scrn (NEGATIVE) U Benzodiazepines Scrn (NEGATIVE) U Cocaine Metab Screen (NEGATIVE) U Marijuana (THC) Screen (NEGATIVE) 12/26/18 Range/Units 23:30 WBC (4.0-11.0) K/uL RBC (4.50-5.90) M/uL Hgb (13.0-17.0) g/dL Hct (38.0-50.0) % MCV (80.0-98.0) fL MCH (27.0-32.0) pg MCHC (31.0-37.0) g/dL RDW Std Deviation (28.0-62.0) fl RDW Coeff of Freddie (11.0-15.0) % Plt Count (150-400) K/uL Neut % (Auto) (48.0-80.0) % Lymph % (Auto) (16.0-40.0) % [place] % (Auto) (0.0-15.0) % Eos % (Auto) (0.0-7.0) % Baso % (Auto) (0.0-1.5) % Neut # (Auto) (1.4-5.7) K/uL Lymph # (Auto) (0.6-2.4) K/uL [place] # (Auto) (0.0-0.8) K/uL Eos # (Auto) (0.0-0.7) K/uL Baso # (Auto) (0.0-0.1) K/uL Nucleated RBC % /100WBC Nucleated RBCs # K/uL Sodium (136-148) mmol/L Potassium (3.5-5.1) mmol/L Chloride (98-107) mmol/L Carbon Dioxide (21.0-32.0) mmol/L BUN (7.0-18.0) mg/dL Creatinine (0.8-1.3) mg/dL Est Cr Clr Drug Dosing Estimated GFR (MDRD) ml/min Glucose (74-106) mg/dL Calcium (8.5-10.1) mg/dL Total Bilirubin (0.2-1.0) mg/dL AST (15-37) IU/L ALT (14-63) IU/L Alkaline Phosphatase (46-116) U/L Total Protein (6.4-8.2) g/dL Albumin (3.4-5.0) g/dL Globulin (2.6-4.0) g/dL Albumin/Globulin Ratio (0.9-1.6) Lipase (73-393) U/L Urine Color Urine Appearance Urine pH (5.0-8.0) Ur Specific [place] (1.001-1.035) Urine Protein (NEGATIVE) mg/dL Urine Glucose (UA) (NEGATIVE) mg/dL Urine Ketones (NEGATIVE) mg/dL Urine Occult Blood (NEGATIVE) Urine Nitrite (NEGATIVE) Urine Bilirubin (NEGATIVE) Urine Urobilinogen (<2.0) EU/dL Ur Leukocyte Esterase (NEGATIVE) Urine Opiates Screen NEGATIVE (NEGATIVE) Ur Oxycodone Screen NEGATIVE (NEGATIVE) Urine Methadone Screen NEGATIVE (NEGATIVE) Ur Barbiturates Screen NEGATIVE (NEGATIVE) Ur Phencyclidine Scrn NEGATIVE (NEGATIVE) Ur Amphetamine Screen NEGATIVE (NEGATIVE) U Methamphetamines Scrn NEGATIVE (NEGATIVE) U Benzodiazepines Scrn NEGATIVE (NEGATIVE) U Cocaine Metab Screen NEGATIVE (NEGATIVE) U Marijuana (THC) Screen POSITIVE (NEGATIVE) Meds: Medications Discontinued Medications Generic Name Dose Route Start Last Admin Trade Name Freq PRN Reason Stop Dose Admin Sodium Chloride 1,000 mls @ 999 mls/hr 10/12/19 22:39 12/26/18 22:47 Normal Saline IV 12/26/18 23:39 999 mls/hr BOLUS ONE Administration Ondansetron HCl 4 mg 12/26/18 22:39 12/26/18 22:47 Zofran IVPUSH 12/26/18 22:40 4 mg ONETIME ONE Administration Departure - Departure Time of Disposition: 23:37
[2018-12-26 23:07] LABS: BLOOD UREA NITROGEN,BUN 6 mg/dL (7.0-18.0); CARBON DIOXIDE,CO2 28.7 mmol/L (21.0-32.0); CHLORIDE,CL 103 mmol/L (98-107); GLUCOSE RANDOM 87 mg/dL (74-106); LIPASE 134 U/L (73-393); POTASSIUM,K 3.7 mmol/L (3.5-5.1); SODIUM,NA 141 mmol/L (136-148)
--- NOTE | 2018-12-27 00:15 | US ---
INDICATION: Right upper quadrant pain TECHNIQUE: Ultrasound abdomen limited. Sonographic images of the right upper quadrant were obtained using johnson-scale and color Doppler images. COMPARISON: October 31, 2018 FINDINGS: Liver: Normal in size and echotexture. No masses. No intrahepatic biliary dilatation. Gallbladder: Non shadowing, mobile densities within the gallbladder, unchanged. Normal wall thickness. No pericholecystic fluid. Sonographic Nunes`s sign is negative. Common bile duct: 2 mm. Pancreas: Normal. Right kidney: 10.4 cm. Normal echotexture and cortex. No masses, stones, or hydronephrosis. IMPRESSION: No evidence for acute cholecystitis. Non shadowing mobile densities in the gallbladder likely represent sludge, unchanged. Dictated by Xuan Lee MD @ Dec 27 2018 12:07AM Signed by Dr. Xuan Lee @ Dec 27 2018 12:13AM
== END 2018-12-27 00:30 | disposition home or self-care (01) ==
LOC: MW.ED 22:27
DX: K80.50 Calculus of bile duct without cholangitis or cholecystitis without obstruction (principal); Z91.19 Patient's noncompliance with other medical treatment and regimen; Z21 Asymptomatic human immunodeficiency virus [HIV] infection status
CPT/HCPCS: 36415; 76705; 80053; 80305; 81003; 83690; 85025; 96361; 96374; 99284; J2405; J7040; 99283

== ENCOUNTER 2019-01-31 09:14 | Emergency (ER) | payer OTHER ==
[2019-01-31] MEDS ORDERED: Sodium Chloride 0.9% 1,000 ML IV ONE (09:26)
[2019-01-31] MEDS ORDERED: Ondansetron 4 MG/2 ML SDV IVPUSH ONE (09:26)
[2019-01-31] MEDS ORDERED: Ketorolac 30 MG/ML SDV IVPUSH ONE (09:26)
--- NOTE | 2019-01-31 09:33 | EDM.PDOC ---
ED HPI GENERAL MEDICAL PROBLEM - General Chief Complaint: Abdominal Pain Stated Complaint: ABD PAIN Time Seen by Provider: 01/31/19 09:25 - History of Present Illness INITIAL COMMENTS - FREE TEXT/NARRATIVE: HISTORY AND PHYSICAL: History of present illness: Patient's 28-year-old black male with past medical history significant for biliary colic was seen numerous times for this and has been unable to secure surgical follow-up and definitive treatment patient presents today with concern of abdominal pain is been no vomiting diarrhea fever chills chest pain shortness breath or other concern. Review of systems: As per history of present illness and below otherwise all systems reviewed and negative. Past medical history: As per history of present illness and as reviewed below otherwise noncontributory. Surgical history: As per history of present illness and as reviewed below otherwise noncontributory. Social history: No reported history of drug or alcohol abuse. Family history: As per history of present illness and as reviewed below otherwise noncontributory. Physical exam: HEENT: Atraumatic, normocephalic, pupils reactive, negative for conjunctival pallor or scleral icterus, mucous membranes moist, throat clear, neck supple, nontender, trachea midline. Lungs: Clear to auscultation, breath sounds equal bilaterally, chest nontender. Heart: S1S2, regular, negative for clicks, rubs, or JVD. Abdomen: Soft, nondistended, no significant localized tenderness Negative for masses or hepatosplenomegaly. Negative for costovertebral tenderness. Pelvis: Stable nontender. Genitourinary: Deferred. Rectal: Deferred. Extremities: Atraumatic, negative for cords or calf pain. Neurovascular unremarkable. Neuro: Awake, alert, oriented. Cranial nerves II through XII unremarkable. Cerebellum unremarkable. Motor and sensory unremarkable throughout. Exam nonfocal. Diagnostics: CBC CMP PT/INR lipase Therapeutics: Saline 1 L bolus Toradol 30 mg IV Zofran 4 mg IV Impression: # 1 biliary colic #2 medical noncompliance Definitive disposition and diagnosis as appropriate pending reevaluation and review of above. upper abd Pain Score (Numeric/FACES): 10 - Related Data Allergies Allergy/AdvReac Type Severity Reaction Status Date / Time No Known Allergies Allergy Verified 01/31/19 09:17 Home Meds: Home Meds . [No Known Home Meds] 12/26/18 [History] Past Medical History - Past Health History Medical/Surgical History: Denies Medical/Surgical History HEENT History: Reports: None Cardiovascular History: Reports: None Respiratory History: Reports: Asthma Gastrointestinal History: Reports: Cholelithiasis Genitourinary History: Reports: None Musculoskeletal History: Reports: None Neurological History: Reports: None Psychiatric History: Reports: Anxiety, Depression Endocrine/Metabolic History: Reports: None Hematologic History: Reports: None Immunologic History: Reports: HIV Oncologic (Cancer) History: Reports: None Dermatologic History: Reports: None - Infectious Disease History Infectious Disease History: Reports: HIV-Human Immunodeficiency Virus - Past Surgical History Head Surgeries/Procedures: Reports: None HEENT Surgical History: Reports: Oral Surgery Respiratory Surgical History: Reports: None GI Surgical History: Reports: None Social & Family History - Family History Family Medical History: Noncontributory - Tobacco Use Smoking Status *Q: Never Smoker - Caffeine Use Caffeine Use: Reports: None - Recreational Drug Use Recreational Drug Use: No ED ROS GENERAL - Review of Systems Review Of Systems: Comprehensive ROS is negative, except as noted in HPI. ED EXAM, GENERAL - Physical Exam Exam: See Below (See dictation) Course - Vital Signs Last Recorded V/S: Last Vital Signs Temp 36.3 C 01/31/19 09:15 Pulse 65 01/31/19 09:15 Resp 16 01/31/19 09:15 BP 119/79 01/31/19 09:15 Pulse Ox 100 01/31/19 09:15 - Orders/Labs/Meds Orders: Active Orders 24 hr Category Date Time Status CBC WITH AUTO DIFF [HEME] Stat Lab 01/31/19 09:25 Ordered COMPREHENSIVE METABOLIC PN,CMP [CHEM] Stat Lab 01/31/19 09:25 Ordered INR,PT,PROTHROMBIN TIME [COAG] Stat Lab 01/31/19 09:25 Ordered LIPASE [CHEM] Stat Lab 01/31/19 09:25 Ordered Sodium Chloride 0.9% [Normal Saline] 1,000 ml Med 01/31/19 09:26 Ordered IV STAT Medication Orders Sodium Chloride (Normal Saline) 1,000 mls @ 999 mls/hr IV STAT ONE Stop: 01/31/19 10:26 Meds: Medications Generic Name Dose Route Start Last Admin Trade Name Freq PRN Reason Stop Dose Admin Sodium Chloride 1,000 mls @ 999 mls/hr 11/17/19 09:26 Normal Saline IV 01/31/19 10:26 STAT ONE Discontinued Medications Generic Name Dose Route Start Last Admin Trade Name Erin PRN Reason Stop Dose Admin Ketorolac Tromethamine 30 mg 01/31/19 09:26 Toradol IVPUSH 01/31/19 09:27 ONETIME ONE Ondansetron HCl 4 mg 01/31/19 09:26 Zofran IVPUSH 01/31/19 09:27 ONETIME ONE Departure - Departure Time of Disposition: :33 Disposition: Home, Self-Care 01 Condition: Good Clinical Impression: Biliary colic, Medical non-compliance - Discharge Information Referrals: PCP,None [Primary Care Provider] - Additional Instructions: The following information is given to patients seen in the emergency department who are being discharged to home. This information is to outline your options for follow-up care. We provide all patients seen in our emergency department with a follow-up referral. The need for follow-up, as well as the timing and circumstances, are variable depending upon the specifics of your emergency department visit. If you don't have a primary care physician on staff, we will provide you with a referral. We always advise you to contact your personal physician following an emergency department visit to inform them of the circumstance of the visit and for follow-up with them and/or the need for any referrals to a consulting specialist. The emergency department will also refer you to a specialist when appropriate. This referral assures that you have the opportunity for followup care with a specialist. All of these measure are taken in an effort to provide you with optimal care, which includes your followup. Under all circumstances we always encourage you to contact your private physician who remains a resource for coordinating your care. When calling for followup care, please make the office aware that this follow-up is from your recent emergency room visit. If for any reason you are refused follow-up, please contact the [facility] emergency department at and asked to speak to the emergency department charge nurse. [facility] - General Surgery Professional Building [address] [place] [address], [address] [place] [address] Dietary considerations as discussed all general surgery and social service as discussed return as needed as discussed - My Orders Last 24 Hours: My Active Orders 01/31/19 09:25 CBC WITH AUTO DIFF [HEME] Stat COMPREHENSIVE METABOLIC PN,CMP [CHEM] Stat INR,PT,PROTHROMBIN TIME [COAG] Stat LIPASE [CHEM] Stat 01/31/19 09:26 Sodium Chloride 0.9% [Normal Saline] 1,000 ml IV STAT - Assessment/Plan Last 24 Hours: My Active Orders 01/31/19 09:25 CBC WITH AUTO DIFF [HEME] Stat COMPREHENSIVE METABOLIC PN,CMP [CHEM] Stat INR,PT,PROTHROMBIN TIME [COAG] Stat LIPASE [CHEM] Stat 01/31/19 09:26 Sodium Chloride 0.9% [Normal Saline] 1,000 ml IV STAT
[2019-01-31 10:13] LABS: BLOOD UREA NITROGEN,BUN 11 mg/dL (7.0-18.0); CARBON DIOXIDE,CO2 30.2 mmol/L (21.0-32.0); CHLORIDE,CL 107 mmol/L (98-107); GLUCOSE RANDOM 84 mg/dL (74-106); LIPASE 163 U/L (73-393); POTASSIUM,K 4.3 mmol/L (3.5-5.1); SODIUM,NA 141 mmol/L (136-148)
== END 2019-01-31 11:19 | disposition home or self-care (01) ==
LOC: MW.ED 09:14
DX: K80.50 Calculus of bile duct without cholangitis or cholecystitis without obstruction (principal); Z91.14 Patient's other noncompliance with medication regimen
CPT/HCPCS: 36415; 80053; 83690; 85025; 85610; 96361; 96374; 96375; 99284; J1885; J2405; J7040; 99283; J7030

== ENCOUNTER 2019-02-16 08:01 | Emergency (ER) | payer SELFPAY ==
--- NOTE | 2019-02-16 08:42 | EDM.PDOC ---
ED HPI GENERAL MEDICAL PROBLEM - General Chief Complaint: Abdominal Pain Stated Complaint: ABDOMINAL PAIN Time Seen by Provider: 02/16/19 08:09 Source of Information: Reports: Patient History Limitations: Reports: No Limitations - History of Present Illness INITIAL COMMENTS - FREE TEXT/NARRATIVE: Presents reporting colicky right upper quadrant pain. This patient has been seen multiple times for his right upper quadrant pain and gallbladder issues. He has not followed up with multiple referrals for surgical management. Today he complains of the same pain with increasing and decreasing levels of intensity. Accompanied by mild nausea but no vomiting. No fever. On this particular day the pain started about 2:15 in the morning when he was at work. He complained to his supervisor general who told him to go home. He now requests pain management and a work note. Upper Abdomen Pain Score (Numeric/FACES): 8 - Related Data Allergies Allergy/AdvReac Type Severity Reaction Status Date / Time No Known Allergies Allergy Verified 02/16/19 08:07 Home Meds: Home Meds . [No Known Home Meds] 12/26/18 [History] Past Medical History - Past Health History Medical/Surgical History: Denies Medical/Surgical History HEENT History: Reports: None Cardiovascular History: Reports: None Respiratory History: Reports: Asthma Gastrointestinal History: Reports: Cholelithiasis Genitourinary History: Reports: None Musculoskeletal History: Reports: None Neurological History: Reports: None Psychiatric History: Reports: Anxiety, Depression Endocrine/Metabolic History: Reports: None Hematologic History: Reports: None Immunologic History: Reports: HIV Oncologic (Cancer) History: Reports: None Dermatologic History: Reports: None - Infectious Disease History Infectious Disease History: Reports: HIV-Human Immunodeficiency Virus - Past Surgical History Head Surgeries/Procedures: Reports: None HEENT Surgical History: Reports: Oral Surgery Respiratory Surgical History: Reports: None GI Surgical History: Reports: None Social & Family History - Family History Family Medical History: Noncontributory - Tobacco Use Smoking Status *Q: Never Smoker - Caffeine Use Caffeine Use: Reports: None - Recreational Drug Use Recreational Drug Use: No ED ROS GENERAL - Review of Systems Review Of Systems: Comprehensive ROS is negative, except as noted in HPI. ED EXAM, GI/ABD - Physical Exam Exam: See Below General Appearance: Alert, No Apparent Distress Ears: Normal External Exam Nose: Normal Inspection Throat/Mouth: Normal Inspection Head: Atraumatic, Normocephalic Neck: Normal Inspection Respiratory/Chest: No Respiratory Distress, Lungs Clear, Normal Breath Sounds Cardiovascular: Regular Rate, Rhythm, No Murmur GI/Abdominal Exam: Normal Bowel Sounds, Soft, No Distention, Tender (Right upper quadrant) Back Exam: Normal Inspection Extremities: Normal Inspection Neurological: Alert, Oriented Psychiatric: Normal Affect, Normal Mood Skin Exam: Warm, Dry, Intact, Normal Color, No Rash Course - Vital Signs Last Recorded V/S: Last Vital Signs Temp 35.7 C 02/16/19 08:05 Pulse 75 02/16/19 08:05 Resp 18 02/16/19 08:05 BP 115/71 02/16/19 08:05 Pulse Ox 97 02/16/19 08:05 - Orders/Labs/Meds Labs: Laboratory Tests 02/16/19 Range/Units 08:43 Sodium 141 (136-148) mmol/L Potassium 4.1 (3.5-5.1) mmol/L Chloride 107 (98-107) mmol/L Carbon Dioxide 28.0 (21.0-32.0) mmol/L BUN 8 (7.0-18.0) mg/dL Creatinine 1.2 (0.8-1.3) mg/dL Est Cr Clr Drug Dosing 81.15 mL/min Estimated GFR (MDRD) > 60.0 ml/min Glucose 94 (74-106) mg/dL Calcium 8.7 (8.5-10.1) mg/dL Total Bilirubin 0.7 (0.2-1.0) mg/dL AST 40 H (15-37) IU/L ALT 26 (14-63) IU/L Alkaline Phosphatase 82 (46-116) U/L Total Protein 8.4 H (6.4-8.2) g/dL Albumin 3.5 (3.4-5.0) g/dL Globulin 4.9 H (2.6-4.0) g/dL Albumin/Globulin Ratio 0.7 L (0.9-1.6) Lipase 147 (73-393) U/L Meds: Medications Discontinued Medications Generic Name Dose Route Start Last Admin Trade Name Freq PRN Reason Stop Dose Admin Morphine Sulfate 6 mg 02/16/19 09:23 02/16/19 09:33 Morphine IM 02/16/19 09:24 6 mg ONETIME ONE Administration Ondansetron HCl 4 mg 02/16/19 09:22 02/16/19 09:35 Zofran Odt PO 02/16/19 09:23 4 mg ONETIME ONE Administration Departure - Departure Time of Disposition: 09:43 Disposition: Home, Self-Care 01 Condition: Good Clinical Impression: Cholelithiasis, Biliary colic - Discharge Information Forms: ED Department Discharge Additional Instructions: The following information is given to patients seen in the emergency department who are being discharged to home. This information is to outline your options for follow-up care. We provide all patients seen in our emergency department with a follow-up referral. The need for follow-up, as well as the timing and circumstances, are variable depending upon the specifics of your emergency department visit. If you don't have a primary care physician on staff, we will provide you with a referral. We always advise you to contact your personal physician following an emergency department visit to inform them of the circumstance of the visit and for follow-up with them and/or the need for any referrals to a consulting specialist. The emergency department will also refer you to a specialist when appropriate. This referral assures that you have the opportunity for follow-up care with a specialist. All of these measure are taken in an effort to provide you with optimal care, which includes your follow-up. Under all circumstances we always encourage you to contact your private physician who remains a resource for coordinating your care. When calling for follow-up care, please make the office aware that this follow-up is from your recent emergency room visit. If for any reason you are refused follow-up, please contact the [facility] Emergency Department at and asked to speak to the emergency department charge nurse. 1. Follow-up with surgeons as previously discussed
[2019-02-16] MEDS ORDERED: Ondansetron 4 MG Tab.DIS PO ONE (09:22)
[2019-02-16] MEDS ORDERED: Morphine 10 MG/ML Syringe IM ONE (09:23)
[2019-02-16 09:29] LABS: BLOOD UREA NITROGEN,BUN 8 mg/dL (7.0-18.0); CHLORIDE,CL 107 mmol/L (98-107); GLUCOSE RANDOM 94 mg/dL (74-106); LIPASE 147 U/L (73-393); POTASSIUM,K 4.1 mmol/L (3.5-5.1); SODIUM,NA 141 mmol/L (136-148)
== END 2019-02-16 09:55 | disposition home or self-care (01) ==
LOC: MW.ED 08:01
DX: K80.70 Calculus of gallbladder and bile duct without cholecystitis without obstruction (principal)
CPT/HCPCS: 36415; 80053; 83690; 96372; 99284; A9270; J2270; 99283

== ENCOUNTER 2019-02-19 12:42 | Emergency (ER) | payer SELFPAY ==
--- NOTE | 2019-02-19 13:10 | EDM.PDOC ---
ED HPI GENERAL MEDICAL PROBLEM - General Chief Complaint: Genitourinary Problem Stated Complaint: STD CHECK Time Seen by Provider: 02/19/19 12:54 Source of Information: Reports: Patient History Limitations: Reports: No Limitations - History of Present Illness INITIAL COMMENTS - FREE TEXT/NARRATIVE: HISTORY AND PHYSICAL: History of present illness: Patient is a 28-year-old male who presents to the emergency room with concerns of an STD. He states that he recently changed body wash and had noticed some hives to his pelvic region which has progressively gone to his scrotum/penile shaft and sporadically throughout his body. He states his perineal area is "sensitive" as his underwear rubs on these hives. Patient reports he does have a history of HIV, he does not have a primary care provider. Patient denies any fever, chills, headache, change in vision, syncope or near syncope. Denies any chest pain, back pain, shortness of breath or cough. Denies any abdominal pain, nausea, vomiting, diarrhea, constipation or dysuria. Has not noted any blood in urine or stool. Patient has been eating and drinking appropriately. Review of systems: As per history of present illness and below otherwise all systems reviewed and negative. Past medical history: As per history of present illness and as reviewed below otherwise noncontributory. Surgical history: As per history of present illness and as reviewed below otherwise noncontributory. Social history: See social history for further information Family history: As per history of present illness and as reviewed below otherwise noncontributory. Physical exam: General: Well-developed and well-nourished 28-year-old -Citizen Of [place] male. Alert and oriented. Nontoxic appearing and in no acute distress. HEENT: Atraumatic, normocephalic, pupils equal and reactive bilaterally, negative for conjunctival pallor or scleral icterus, mucous membranes moist, TMs normal bilaterally, throat clear, neck supple, nontender, trachea midline. No drooling or trismus noted. No meningeal signs. No hot potato voice noted. Lungs: Clear to auscultation, breath sounds equal bilaterally, chest nontender. Heart: S1S2, regular rate and rhythm without overt murmur Abdomen: Soft, nondistended, nontender. Negative for masses or hepatosplenomegaly. Negative for costovertebral tenderness. Pelvis: Stable nontender. Genitourinary: This was done with consent and a boat hand at the bedside. There are small circular slightly raised lesions that appear to be hive-like on the shaft of the penis and scrotum. See SKIN for details Skin: There are few sporadic hives noted to the upper extremities, torso and upper thighs. Otherwise skin is intact, warm, dry. Extremities: Atraumatic, moves all extremities per self without difficulty or deficits, negative for cords or calf pain. Neurovascular unremarkable. Neuro: Awake, alert, oriented. Cranial nerves II through XII unremarkable. Cerebellum unremarkable. Motor and sensory unremarkable throughout. Exam nonfocal. Notes: Discussed with patient the need to establish care with a primary care provider he does have chronic illness and is a high risk patient. Will do a gonorrhea and chlamydia via urine today and refer him to [facility] for complete STD testing. Since he does correlate these with a recent change in a body wash I will give him a Medrol Dosepak as a do appear to be related to a contact dermatitis. Supportive care measures were reviewed and discussed. Voices understanding and is agreeable to plan of care. Denies any further questions or concerns at this time. Diagnostics: Gilberto/Chlamydia Therapeutics: None Prescription: Medrol Dosepak Impression: Contact Dermatitis STD screening Plan: 1. Please abstain from sexual intercourse until the lab results have returned. Always use protection to minimized risk of STD exposure 2. Take the medications as directed. The gonorrhea and chlamydia tests are send out labs, therefore will not be available for 2-3 business days. 3. Please follow-up with your primary care provider in the next few days. [facility] does offer free STD testing, please follow-up with them for further STD testing needs (HIGHLY RECOMMEND a FULL SCREENING). Return to the ED as needed and as discussed. Definitive disposition and diagnosis as appropriate pending reevaluation and review of above. - Related Data Allergies Allergy/AdvReac Type Severity Reaction Status Date / Time No Known Allergies Allergy Verified 02/19/19 13:00 Home Meds: Home Meds . [No Known Home Meds] 12/26/18 [History] Past Medical History - Past Health History Medical/Surgical History: Denies Medical/Surgical History HEENT History: Reports: None Cardiovascular History: Reports: None Respiratory History: Reports: Asthma Gastrointestinal History: Reports: Cholelithiasis Genitourinary History: Reports: None Musculoskeletal History: Reports: None Neurological History: Reports: None Psychiatric History: Reports: Anxiety, Depression Endocrine/Metabolic History: Reports: None Hematologic History: Reports: None Immunologic History: Reports: HIV Oncologic (Cancer) History: Reports: None Dermatologic History: Reports: None - Infectious Disease History Infectious Disease History: Reports: HIV-Human Immunodeficiency Virus - Past Surgical History Head Surgeries/Procedures: Reports: None HEENT Surgical History: Reports: Oral Surgery Respiratory Surgical History: Reports: None GI Surgical History: Reports: None Social & Family History - Family History Family Medical History: Noncontributory - Caffeine Use Caffeine Use: Reports: None ED ROS GENERAL - Review of Systems Review Of Systems: Comprehensive ROS is negative, except as noted in HPI. ED EXAM, RENAL/ - Physical Exam Exam: See Below (See dictation) Course - Vital Signs Last Recorded V/S: Last Vital Signs Temp 96.3 F 02/19/19 13:00 Pulse 61 02/19/19 13:00 Resp 14 02/19/19 13:00 BP 112/63 02/19/19 13:00 Pulse Ox 100 02/19/19 13:00 - Orders/Labs/Meds Orders: Active Orders 24 hr Category Date Time Status CHLAMYDIA AND GONORRHEA BY TMA Stat Lab 02/19/19 13:12 Ordered Departure - Departure Time of Disposition: 13:19 Disposition: Home, Self-Care 01 Clinical Impression: Screen for STD (sexually transmitted disease) Contact dermatitis Qualifiers: Contact dermatitis type: irritant Contact dermatitis trigger: other trigger Qualified Code(s): L24.89 - Irritant contact dermatitis due to other agents; L24.8 - Irritant contact dermatitis due to other agents - Discharge Information Instructions: Contact Dermatitis, [id number], Sexually Transmitted Disease, [id number] Referrals: PCP,None [Primary Care Provider] - Forms: ED Department Discharge Additional Instructions: The following information is given to patients seen in the emergency department who are being discharged to home. This information is to outline your options for follow-up care. We provide all patients seen in our emergency department with a follow-up referral. The need for follow-up, as well as the timing and circumstances, are variable depending upon the specifics of your emergency department visit. If you don't have a primary care physician on staff, we will provide you with a referral. We always advise you to contact your personal physician following an emergency department visit to inform them of the circumstance of the visit and for follow-up with them and/or the need for any referrals to a consulting specialist. The emergency department will also refer you to a specialist when appropriate. This referral assures that you have the opportunity for follow-up care with a specialist. All of these measure are taken in an effort to provide you with optimal care, which includes your follow-up. Under all circumstances we always encourage you to contact your private physician who remains a resource for coordinating your care. When calling for follow-up care, please make the office aware that this follow-up is from your recent emergency room visit. If for any reason you are refused follow-up, please contact the [facility] Emergency Department at and asked to speak to the emergency department charge nurse. [facility] [address] [place] [address] [facility] [address] [place] [id number] My [facility] [address] [facility] 1. Always use protection to minimized risk of STD exposure. The gonorrhea and chlamydia tests are send out labs, therefore will not be available for 2-3 business days 2. Take the medication as directed. STOP using the new body wash. May want to wear loose fitting cotton clothing to prevent irritation. 3. Please follow-up with your primary care provider in the next few days. [facility] does offer free STD testing, please follow-up with them for further STD testing needs (HIGHLY RECOMMEND a FULL SCREENING). Return to the ED as needed and as discussed. - My Orders Last 24 Hours: My Active Orders 02/19/19 13:12 CHLAMYDIA AND GONORRHEA BY TMA Stat - Assessment/Plan Last 24 Hours: My Active Orders 02/19/19 13:12 CHLAMYDIA AND GONORRHEA BY TMA Stat
== END 2019-02-19 13:43 | disposition home or self-care (01) ==
LOC: MW.ED 12:42
DX: L24.89 Irritant contact dermatitis due to other agents (principal); Z11.3 Encounter for screening for infections with a predominantly sexual mode of transmission
CPT/HCPCS: 87491; 87591; 99283

== ENCOUNTER 2019-03-01 05:17 | Emergency (ER) | payer OTHER ==
--- NOTE | 2019-03-01 05:30 | EDM.PDOC ---
ED HPI GENERAL MEDICAL PROBLEM - General Chief Complaint: Abdominal Pain Stated Complaint: PT SPOKE TO NURSE Time Seen by Provider: 03/01/19 05:26 - History of Present Illness INITIAL COMMENTS - FREE TEXT/NARRATIVE: HISTORY AND PHYSICAL: History of present illness: The patient is a 28-year-old male with a known HIV positive status who presents with morning with complaints of acute on chronic abdominal pain. Today's the patient's 15th ER visit just this year alone for abdominal pain vomiting and gallbladder issues and the patient has had an extensive history including a transfer to [facility] and several ultrasounds. The patient had only one visit where he had abnormal labs which is when he was transferred to [facility] and admitted there and since that time he has been having normal labs and normal workups here on our evaluations. He has been referred multiple times to her surgeons and is not following up. Today he presents this morning with right upper quadrant pain associated with nausea and vomiting which started 11:30 PM. He says that he has been more constipated and has not had diarrhea or pale stools and his vomiting is not black or bloody. He did not eat anything specifically fatty yesterday but he has been pushing hydration. He tells me that now that he has a car he is getting appointments to have his gallbladder evaluated for referral. He did not take anything specifically to help him with his symptoms this morning. He denies that he is eating a lot of fatty foods and he has acid reflux flank pain or urinary issues. He has no Shortness of breath or fever. His pain symptoms are all similar in character quality and location to all of his prior episodes and there is nothing new or different. The patient's last abdominal ultrasound was performed December 26 of this year which revealed sludge and otherwise a normal gallbladder and he also had an ultrasound performed in October this past summer which showed gallstones without evidence of any cholecystitis Review of systems: As per history of present illness and below otherwise all systems reviewed and negative. Past medical history: As per history of present illness and as reviewed below otherwise noncontributory. Surgical history: As per history of present illness and as reviewed below otherwise noncontributory. Social history: No reported history of drug or alcohol abuse. Family history: As per history of present illness and as reviewed below otherwise noncontributory. Physical exam: General: well-developed well-nourished man who is nontoxic and vital signs are noted by me. HEENT: Atraumatic, normocephalic, negative for conjunctival pallor or scleral icterus, mucous membranes moist, throat clear, neck supple, nontender, trachea midline. Lungs: Clear to auscultation, breath sounds equal bilaterally, chest nontender. Heart: S1S2, regular in rhythm no overt murmurs Abdomen: Soft, nondistended, will tenderness in the right upper quadrant on deep palpation and bowel sounds are slightly hyperactive. There is some tympany on percussion but no rebound or guarding on palpation and there is no left upper quadrant tenderness or lower abdominal tenderness Negative for masses or hepatosplenomegaly. Pelvis: Stable nontender. Genitourinary: Deferred. Rectal: Deferred. Extremities: Atraumatic, negative for cords or calf pain. Neurovascular unremarkable. Neuro: Awake, alert, oriented. Cranial nerves II through XII unremarkable. Cerebellum unremarkable. Motor and sensory unremarkable throughout. Exam nonfocal. Diagnostics: CBC CMP amylase lipase Therapeutics: IV fluids Zofran Toradol I again reiterated to the patient his need to get follow-up and definitive care for this persistent episodic right upper quadrant pain and he states understanding. Impression: acute on chronic right upper quadrant pain/biliary colic Definitive disposition and diagnosis as appropriate pending reevaluation and review of above. epigastric Pain Score (Numeric/FACES): 8 - Related Data Allergies Allergy/AdvReac Type Severity Reaction Status Date / Time No Known Allergies Allergy Verified 03/01/19 05:25 Home Meds: Home Meds . [No Known Home Meds] 03/01/19 [History] Past Medical History - Past Health History Medical/Surgical History: Denies Medical/Surgical History HEENT History: Reports: None Cardiovascular History: Reports: None Respiratory History: Reports: Asthma Gastrointestinal History: Reports: Cholelithiasis Genitourinary History: Reports: None Musculoskeletal History: Reports: None Neurological History: Reports: None Psychiatric History: Reports: Anxiety, Depression Endocrine/Metabolic History: Reports: None Hematologic History: Reports: None Immunologic History: Reports: HIV Oncologic (Cancer) History: Reports: None Dermatologic History: Reports: None - Infectious Disease History Infectious Disease History: Reports: HIV-Human Immunodeficiency Virus - Past Surgical History Head Surgeries/Procedures: Reports: None HEENT Surgical History: Reports: Oral Surgery Respiratory Surgical History: Reports: None GI Surgical History: Reports: None Social & Family History - Family History Family Medical History: Noncontributory - Caffeine Use Caffeine Use: Reports: None ED ROS GENERAL - Review of Systems Review Of Systems: Comprehensive ROS is negative, except as noted in HPI. ED EXAM, GENERAL - Physical Exam Exam: See Below (see Dictation) Course - Vital Signs Last Recorded V/S: Last Vital Signs Temp 35.8 C 03/01/19 05:25 Pulse 98 03/01/19 05:25 Resp 18 03/01/19 05:25 BP 108/80 03/01/19 05:25 Pulse Ox 98 03/01/19 05:25 - Orders/Labs/Meds Orders: Active Orders 24 hr Category Date Time Status Sodium Chloride 0.9% [Saline Flush] Med 03/01/19 05:34 Active 10 ml FLUSH ASDIRECTED PRN Sodium Chloride 0.9% [Saline Flush] Med 03/01/19 05:34 Active 2.5 ml FLUSH ASDIRECTED PRN Saline Lock Insert [OM.PC] Stat Oth 03/01/19 05:34 Ordered Medication Orders Sodium Chloride (Saline Flush) 10 ml FLUSH ASDIRECTED PRN PRN Reason: Keep Vein Open Sodium Chloride (Saline Flush) 2.5 ml FLUSH ASDIRECTED PRN PRN Reason: Keep Vein Open Labs: Laboratory Tests 03/01/19 03/01/19 Range/Units 04:35 04:35 WBC 4.56 (4.0-11.0) K/uL RBC 4.64 (4.50-5.90) M/uL Hgb 12.8 L (13.0-17.0) g/dL Hct 39.4 (38.0-50.0) % MCV 84.9 (80.0-98.0) fL MCH 27.6 (27.0-32.0) pg MCHC 32.5 (31.0-37.0) g/dL RDW Std Deviation 40.0 (28.0-62.0) fl RDW Coeff of Freddie 13 (11.0-15.0) % Plt Count 142 L (150-400) K/uL Add Manual Diff YES Neutrophils % (Manual) 17 L (48.0-80.0) % Lymphocytes % (Manual) 71 H (16.0-40.0) % Monocytes % (Manual) 4 (0.0-15.0) % Eosinophils % (Manual) 7 (0.0-7.0) % Basophils % (Manual) 1 (0.0-1.5) % Nucleated RBC % 0.0 /100WBC Absolute Seg Neuts 0.8 L (1.4-5.7) Lymphocytes # (Manual) 3.2 H (0.6-2.4) Monocytes # (Manual) 0.2 (0.0-0.8) Eosinophils # (Manual) 0.3 (0.0-0.7) Basophils # (Manual) 0.0 (0.0-0.1) Nucleated RBCs # 0 K/uL Sodium 142 (136-148) mmol/L Potassium 4.1 (3.5-5.1) mmol/L Chloride 107 (98-107) mmol/L Carbon Dioxide 28.9 (21.0-32.0) mmol/L BUN 10 (7.0-18.0) mg/dL Creatinine 1.2 (0.8-1.3) mg/dL Est Cr Clr Drug Dosing 80.80 mL/min Estimated GFR (MDRD) > 60.0 ml/min Glucose 96 (74-106) mg/dL Calcium 8.6 (8.5-10.1) mg/dL Total Bilirubin 1.1 H (0.2-1.0) mg/dL AST 42 H (15-37) IU/L ALT 32 (14-63) IU/L Alkaline Phosphatase 89 (46-116) U/L Total Protein 8.8 H (6.4-8.2) g/dL Albumin 3.4 (3.4-5.0) g/dL Globulin 5.4 H (2.6-4.0) g/dL Albumin/Globulin Ratio 0.6 L (0.9-1.6) Amylase 92 (25-115) U/L Lipase 158 (73-393) U/L Meds: Medications Generic Name Dose Route Start Last Admin Trade Name Freq PRN Reason Stop Dose Admin Sodium Chloride 10 ml 03/01/19 05:34 Saline Flush FLUSH ASDIRECTED PRN Keep Vein Open Sodium Chloride 2.5 ml 03/01/19 05:34 Saline Flush FLUSH ASDIRECTED PRN Keep Vein Open Discontinued Medications Generic Name Dose Route Start Last Admin Trade Name Erin PRN Reason Stop Dose Admin Hyoscyamine 0.125 mg 03/01/19 05:39 Hyomax-Sl SL 03/01/19 05:40 ONETIME ONE Sodium Chloride 1,000 mls @ 999 mls/hr 03/01/19 05:34 03/01/19 05:43 Normal Saline IV 03/01/19 06:34 999 mls/hr STAT ONE Administration Ketorolac Tromethamine 30 mg 03/01/19 05:34 03/01/19 05:43 Toradol IVPUSH 03/01/19 05:35 30 mg ONETIME ONE Administration Ondansetron HCl 4 mg 03/01/19 05:34 03/01/19 05:43 Zofran IVPUSH 03/01/19 05:35 4 mg ONETIME ONE Administration Departure - Departure Time of Disposition: 06:40 Disposition: Home, Self-Care 01 Condition: Good Clinical Impression: Abdominal pain - Discharge Information Referrals: PCP,None [Primary Care Provider] - Forms: ED Department Discharge Additional Instructions: The following information is given to patients seen in the emergency department who are being discharged to home. This information is to outline your options for follow-up care. We provide all patients seen in our emergency department with a follow-up referral. The need for follow-up, as well as the timing and circumstances, are variable depending upon the specifics of your emergency department visit. If you don't have a primary care physician on staff, we will provide you with a referral. We always advise you to contact your personal physician following an emergency department visit to inform them of the circumstance of the visit and for follow-up with them and/or the need for any referrals to a consulting specialist. The emergency department will also refer you to a specialist when appropriate. This referral assures that you have the opportunity for followup care with a specialist. All of these measure are taken in an effort to provide you with optimal care, which includes your followup. Under all circumstances we always encourage you to contact your private physician who remains a resource for coordinating your care. When calling for followup care, please make the office aware that this follow-up is from your recent emergency room visit. If for any reason you are refused follow-up, please contact the [facility] emergency department at and ask to speak to the emergency department charge nurse. [facility] Primary care- Internal Medicine and Family [facility] [address] [place] [id number] [facility] Specialty Care-General Surgery Professional Building [address] [place] [id number] Please eat a low-fat diet and use [id number] medications for discomfort and pain and also added prescribed medication as you choose to help with the discomfort. Use Zofran as prescribed for nausea and vomiting. Please connect with one of our providers for further care and evaluation or connect with a provider of your choice as we discussed to get definitive care of this ongoing problem. Return to ER as needed and as discussed Sepsis Event Note - Focused Exam Vital Signs: Vital Signs Temp Pulse Resp BP Pulse Ox 03/01/19 05:25 35.8 C 98 18 108/80 98 Date Exam was Performed: 03/01/19 Time Exam was Performed: 06:40 - My Orders Last 24 Hours: My Active Orders 03/01/19 05:34 Sodium Chloride 0.9% [Saline Flush] 10 ml FLUSH ASDIRECTED PRN Sodium Chloride 0.9% [Saline Flush] 2.5 ml FLUSH ASDIRECTED PRN Saline Lock Insert [OM.PC] Stat - Assessment/Plan Last 24 Hours: My Active Orders 03/01/19 05:34 Sodium Chloride 0.9% [Saline Flush] 10 ml FLUSH ASDIRECTED PRN Sodium Chloride 0.9% [Saline Flush] 2.5 ml FLUSH ASDIRECTED PRN Saline Lock Insert [OM.PC] Stat
[2019-03-01] MEDS ORDERED: Ketorolac 30 MG/ML SDV IVPUSH ONE (05:34)
[2019-03-01] MEDS ORDERED: Sodium Chloride 0.9% 2.5 ML Syringe FLUSH PRN (05:34)
[2019-03-01] MEDS ORDERED: Ondansetron 4 MG/2 ML SDV IVPUSH ONE (05:34)
[2019-03-01] MEDS ORDERED: Sodium Chloride 0.9% 1,000 ML IV ONE (05:34)
[2019-03-01] MEDS ORDERED: Sodium Chloride 0.9% 10 ML Syringe FLUSH PRN (05:34)
[2019-03-01] MEDS ORDERED: Hyoscyamine 0.125 MG Tab.SL SL ONE (05:39)
[2019-03-01 06:34] LABS: BLOOD UREA NITROGEN,BUN 10 mg/dL (7.0-18.0); CARBON DIOXIDE,CO2 28.9 mmol/L (21.0-32.0); CHLORIDE,CL 107 mmol/L (98-107); GLUCOSE RANDOM 96 mg/dL (74-106); LIPASE 158 U/L (73-393); POTASSIUM,K 4.1 mmol/L (3.5-5.1); SODIUM,NA 142 mmol/L (136-148)
== END 2019-03-01 06:53 | disposition home or self-care (01) ==
LOC: MW.ED 05:17
DX: R10.11 Right upper quadrant pain (principal); G89.29 Other chronic pain; K80.50 Calculus of bile duct without cholangitis or cholecystitis without obstruction; Z21 Asymptomatic human immunodeficiency virus [HIV] infection status
CPT/HCPCS: 36415; 80053; 82150; 83690; 85025; 96361; 96374; 96375; 99284; J1885; J2405; J7030; 99283

== ENCOUNTER 2019-03-12 05:25 | Emergency (ER) | payer SELFPAY ==
--- NOTE | 2019-03-12 05:44 | EDM.PDOC ---
ED HPI GENERAL MEDICAL PROBLEM - General Chief Complaint: Abdominal Pain Stated Complaint: SORE THROAT AND GALL BLADDER PAIN Time Seen by Provider: 03/12/19 05:31 Source of Information: Reports: Patient, Detention Records History Limitations: Reports: No Limitations - History of Present Illness INITIAL COMMENTS - FREE TEXT/NARRATIVE: -year-old gentleman presents the emergency room chief complaint of sore throat fever. Patient states he has chronic abdominal pain with a slight white is here today Onset: Today Duration: Day(s):, Getting Worse Quality: Reports: Stabbing Severity: Moderate Improves with: Reports: None Worsens with: Reports: None Context: Reports: Sick Contact Associated Symptoms: Reports: Fever/Chills abdominal Pain Score (Numeric/FACES): 8 - Related Data Allergies Allergy/AdvReac Type Severity Reaction Status Date / Time No Known Allergies Allergy Verified 03/12/19 05:29 Home Meds: Home Meds . [No Known Home Meds] 03/01/19 [History] Past Medical History - Past Health History Medical/Surgical History: Denies Medical/Surgical History HEENT History: Reports: None Cardiovascular History: Reports: None Respiratory History: Reports: Asthma Gastrointestinal History: Reports: Cholelithiasis Genitourinary History: Reports: None Musculoskeletal History: Reports: None Neurological History: Reports: None Psychiatric History: Reports: Anxiety, Depression Endocrine/Metabolic History: Reports: None Hematologic History: Reports: None Immunologic History: Reports: HIV Oncologic (Cancer) History: Reports: None Dermatologic History: Reports: None - Infectious Disease History Infectious Disease History: Reports: HIV-Human Immunodeficiency Virus - Past Surgical History Head Surgeries/Procedures: Reports: None HEENT Surgical History: Reports: Oral Surgery Respiratory Surgical History: Reports: None GI Surgical History: Reports: None Social & Family History - Family History Family Medical History: Noncontributory - Tobacco Use Smoking Status *Q: Never Smoker - Caffeine Use Caffeine Use: Reports: None - Recreational Drug Use Recreational Drug Use: No ED ROS GENERAL - Review of Systems Review Of Systems: Comprehensive ROS is negative, except as noted in HPI. Constitutional: Reports: Fever, Chills HEENT: Reports: Throat Pain Respiratory: Reports: No Symptoms Cardiovascular: Reports: No Symptoms Endocrine: Reports: No Symptoms GI/Abdominal: Reports: Abdominal Pain : Reports: No Symptoms Musculoskeletal: Reports: No Symptoms Skin: Reports: No Symptoms Neurological: Reports: No Symptoms Psychiatric: Reports: No Symptoms Hematologic/Lymphatic: Reports: No Symptoms ED EXAM, GI/ABD - Physical Exam Exam: See Below Exam Limited By: No Limitations General Appearance: Alert, WD/WN, No Apparent Distress Ears: Normal External Exam, Normal Canal, Normal TMs Nose: Normal Inspection Throat/Mouth: Normal Lips, Normal Teeth, Normal Voice, No Airway Compromise. No : Normal Oropharynx Head: Atraumatic, Normocephalic Neck: Normal Inspection, Supple, Non-Tender Respiratory/Chest: No Respiratory Distress, Lungs Clear, Normal Breath Sounds, No Accessory Muscle Use Cardiovascular: Normal Peripheral Pulses, Regular Rate, Rhythm, No Edema, No Gallop, No JVD, No Murmur, No Rub GI/Abdominal Exam: Normal Bowel Sounds, Soft, Non-Tender, No Organomegaly Rectal (Males) Exam: Deferred Back Exam: Normal Inspection Extremities: Normal Inspection Neurological: Alert, Oriented, CN II-XII Intact, Normal Cognition, Normal Gait, Normal Reflexes, No Motor/Sensory Deficits Psychiatric: Normal Affect, Normal Mood Skin Exam: Warm, Dry, Intact, Normal Color Lymphatic: No Adenopathy Course - Vital Signs Text/Narrative:: Is a 28-year-old patient comes in for sore throat fever. Patient states he has been having some throat pain for the past 2 days. Patient has no other problems. Last Recorded V/S: Last Vital Signs Temp 97.8 F 03/12/19 05:29 Pulse 69 03/12/19 05:29 Resp BP 120/85 03/12/19 05:29 Pulse Ox 98 03/12/19 05:29 - Orders/Labs/Meds Orders: Active Orders 24 hr Category Date Time Status CULTURE STREP A CONFIRMATION [] Stat Lab 03/12/19 05:36 Results INFLUENZA A+B AG SCREEN [] Stat Lab 03/12/19 05:36 Received STREP SCRN A RAPID W CULT CONF [] Stat Lab 03/12/19 05:36 Results Departure - Departure Time of Disposition: 06:02 Disposition: Home, Self-Care 01 Clinical Impression: Acute pharyngitis - Discharge Information Instructions: Pharyngitis, [id number] Referrals: PCP,None [Primary Care Provider] - Forms: ED Department Discharge Sepsis Event Note - Evaluation Sepsis Screening Result: No Definite Risk - Focused Exam Vital Signs: Vital Signs Temp Pulse BP Pulse Ox 03/12/19 05:29 97.8 F 69 120/85 98 Date Exam was Performed: 03/12/19 Time Exam was Performed: 05:58 - My Orders Last 24 Hours: My Active Orders 03/12/19 05:36 CULTURE STREP A CONFIRMATION [RM] Stat INFLUENZA A+B AG SCREEN [] Stat STREP SCRN A RAPID W CULT CONF [] Stat - Assessment/Plan Last 24 Hours: My Active Orders 03/12/19 05:36 CULTURE STREP A CONFIRMATION [RM] Stat INFLUENZA A+B AG SCREEN [] Stat STREP SCRN A RAPID W CULT CONF [] Stat
[2019-03-12] MEDS ORDERED: Amoxicillin 500 MG Cap PO ONE (06:00)
== END 2019-03-12 06:43 | disposition home or self-care (01) ==
LOC: MW.ED 05:25
DX: J02.9 Acute pharyngitis, unspecified (principal)
CPT/HCPCS: 87081; 87804; 87880; 99283; A9270; 99282

== ENCOUNTER 2019-03-16 05:18 | Emergency (ER) | payer OTHER, SELFPAY ==
[2019-03-16] MEDS ORDERED: cefTRIAXone 1 GM in Lidocaine 1% 4 ML IM ONE (05:31)
--- NOTE | 2019-03-16 05:42 | EDM.PDOC ---
ED HPI GENERAL MEDICAL PROBLEM - General Chief Complaint: Respiratory Problem Stated Complaint: COUGH, CONGESTION Time Seen by Provider: 03/16/19 05:28 Source of Information: Reports: Patient History Limitations: Reports: No Limitations - History of Present Illness INITIAL COMMENTS - FREE TEXT/NARRATIVE: He presents to the emergency room chief complaint of productive cough and chest pain. Patient was given antibiotics but was unwilling to fill them because of financial problems. Patient states he will get them filled at this time Duration: Day(s): (5), Intermittent Location: Reports: Chest Severity: Mild Improves with: Reports: None Worsens with: Reports: None Associated Symptoms: Reports: No Other Symptoms, Cough - Related Data Allergies Allergy/AdvReac Type Severity Reaction Status Date / Time No Known Allergies Allergy Verified 03/16/19 05:30 Home Meds: Home Meds Amoxicillin 500 mg PO TID #30 capsule 03/12/19 [Rx] Past Medical History - Past Health History Medical/Surgical History: Denies Medical/Surgical History HEENT History: Reports: None Cardiovascular History: Reports: None Respiratory History: Reports: Asthma Gastrointestinal History: Reports: Cholelithiasis Genitourinary History: Reports: None Musculoskeletal History: Reports: None Neurological History: Reports: None Psychiatric History: Reports: Anxiety, Depression Endocrine/Metabolic History: Reports: None Hematologic History: Reports: None Immunologic History: Reports: HIV Oncologic (Cancer) History: Reports: None Dermatologic History: Reports: None - Infectious Disease History Infectious Disease History: Reports: HIV-Human Immunodeficiency Virus - Past Surgical History Head Surgeries/Procedures: Reports: None HEENT Surgical History: Reports: Oral Surgery Respiratory Surgical History: Reports: None GI Surgical History: Reports: None Social & Family History - Family History Family Medical History: Noncontributory - Tobacco Use Smoking Status *Q: Never Smoker Second Hand Smoke Exposure: Yes - Caffeine Use Caffeine Use: Reports: Soda - Recreational Drug Use Recreational Drug Use: No ED ROS GENERAL - Review of Systems Review Of Systems: See Below Constitutional: Reports: No Symptoms HEENT: Reports: No Symptoms Respiratory: Reports: Pleuritic Chest Pain, Cough Cardiovascular: Reports: No Symptoms Endocrine: Reports: No Symptoms GI/Abdominal: Reports: No Symptoms : Reports: No Symptoms Musculoskeletal: Reports: No Symptoms Skin: Reports: No Symptoms Neurological: Reports: No Symptoms Psychiatric: Reports: No Symptoms Hematologic/Lymphatic: Reports: No Symptoms Immunologic: Reports: No Symptoms ED EXAM, GENERAL - Physical Exam Exam: See Below Exam Limited By: No Limitations General Appearance: Alert, WD/WN, No Apparent Distress Eye Exam: Bilateral Eye: Normal Fundi Course - Vital Signs Text/Narrative:: Patient presents the emergency room cough and pleuritic chest pain. Patient has not filled his prescription for antibiotics. Patient will be given a gram of Rocephin and a prescription for a Z-Jabari. Patient will be given an off work order. Assessment on this patient is bronchitis. Last Recorded V/S: Last Vital Signs Temp 98.0 F 03/16/19 05:19 Pulse 72 03/16/19 05:19 Resp 18 03/16/19 05:19 BP 109/59 L 03/16/19 05:19 Pulse Ox 97 03/16/19 05:19 - Orders/Labs/Meds Orders: Active Orders 24 hr Category Date Time Status INFLUENZA A+B AG SCREEN [RM] Stat Lab 03/16/19 05:27 Ordered Meds: Medications Discontinued Medications Generic Name Dose Route Start Last Admin Trade Name Freq PRN Reason Stop Dose Admin Ceftriaxone Sodium 1 gm/ 4 mls @ 4 mls/sec 03/16/19 05:31 03/16/19 05:41 Lidocaine HCl IM 03/16/19 05:32 4 mls/sec ONETIME ONE Administration Departure - Departure Time of Disposition: 05:43 Disposition: Home, Self-Care 01 Condition: Good Clinical Impression: Bronchitis, Acute bronchiolitis - Discharge Information Referrals: PCP,None [Primary Care Provider] - Forms: ED Department Discharge Sepsis Event Note - Evaluation Sepsis Screening Result: No Definite Risk - Focused Exam Vital Signs: Vital Signs Temp Pulse Resp BP Pulse Ox 03/16/19 05:19 98.0 F 72 18 109/59 L 97 Date Exam was Performed: 03/16/19 Time Exam was Performed: 05:42 - My Orders Last 24 Hours: My Active Orders 03/16/19 05:27 INFLUENZA A+B AG SCREEN [RM] Stat - Assessment/Plan Last 24 Hours: My Active Orders 03/16/19 05:27 INFLUENZA A+B AG SCREEN [RM] Stat
== END 2019-03-16 06:27 | disposition home or self-care (01) ==
LOC: MW.ED 05:18
DX: J21.9 Acute bronchiolitis, unspecified (principal); J40 Bronchitis, not specified as acute or chronic
CPT/HCPCS: 87804; 96372; 99284; J0696; J2001; 99282

== ENCOUNTER 2019-03-21 19:02 | Emergency (ER) | payer OTHER | END 2019-03-21 19:57 | disposition left against medical advice (07) | LOC: MW.ED 19:02 | DX: Z53.21 Procedure and treatment not carried out due to patient leaving prior to being seen by health care provider (principal) ==

== ENCOUNTER 2019-03-22 00:18 | Emergency (ER) | payer OTHER ==
[2019-03-22 02:44] LABS: BLOOD UREA NITROGEN,BUN 11 mg/dL (7.0-18.0); CHLORIDE,CL 105 mmol/L (98-107); GLUCOSE RANDOM 94 mg/dL (74-106); LIPASE 132 U/L (73-393); POTASSIUM,K 4.1 mmol/L (3.5-5.1); SODIUM,NA 140 mmol/L (136-148)
--- NOTE | 2019-03-22 02:48 | EDM.PDOC ---
ED [facility] GENERAL MEDICAL PROBLEM - General Chief Complaint: Abdominal Pain Stated Complaint: ABDOMINAL PAIN Time Seen by Provider: 03/22/19 01:15 - History of Present Illness INITIAL COMMENTS - FREE TEXT/NARRATIVE: HPI 28-year-old male with history of cholelithiasis presents for evaluation of recurrent typical right upper quadrant pain. Patient has variably followed up previously with surgery. No current plans to follow up with surgery. No new symptoms. No chest pain, shortness breath, fevers, chills, dysuria, urinary frequency, change in passage of flatus or stool. M/S/F/SocHx notable for: please see HPI; remainder reviewed with patient and in chart. ROS: Negative constitutional, eye, cardiovascular, pulmonary, GI, , MSK, skin , neurologic, psychiatric, endocrine unless noted in the HPI. Exam HR 55, RR 14, BP 132/76, T 36.63 Celsius, SaO2 98% on room air. Gen: Pleasant, non-toxic appearing, resting comfortably. HEENT: NC, AT, PEERL, EOMI. Resp: Clear to auscultation bilaterally, normal work of breathing, no accessory muscle usage. Card: Regular rate and rhythm with no murmurs, rubs, or gallops, extremities warm and well perfused. GI: Non-tender to palpation throughout all quadrants, no focal tenderness at McBurney's point, negative Nunes's sign, non-distended, no rebound or guarding. : No suprapubic tenderness to palpation. MSK: No visible deformities, strength and tone without visually appreciable deficit. Skin: Normal color with no visible lesions. Neuro: alert and oriented 3, no facial asymmetry, vision and hearing WNL. Psych: Mood and affect appropriate. Focused Biliary Ultrasound Indication: Right upper quadrant pain. Views Obtained: Transverse and longitudinal biliary views. Findings: Negative sonographic Nunes sign. Dependent without sludge appreciated. Perpendicular measurement of the anterior gallbladder wall at 1.5 mm. No pericholecystic fluid. Labs / Imaging: WBC 2.94, HB 12.2, sodium 14, potassium 4.1, AST 120, ALT 73, total bilirubin 0.8, alkaline phosphatase 81, lipase 132. MDM Previous chart, nursing note, labs, imaging, and vitals reviewed. A: 28-year-old male with history of cholelithiasis presents for evaluation of recurrent typical right upper quadrant pain. DDx: cholelithiasis, cholecystitis, cholangitis, choledocholithiasis. Evaluation: patient with gallstones, normal liver enzymes, and no features consistent with cholecystitis, cholangitis, choledocholithiasis. History, ROS, exam without evidence of alternate intrabdominal her cardiothoracic process at the present time. Recommended follow up with general surgery. Impression: abdominal pain, biliary colic. abdominal Pain Score (Numeric/FACES): 10 - Related Data Allergies Allergy/AdvReac Type Severity Reaction Status Date / Time No Known Allergies Allergy Verified 03/22/19 00:48 Home Meds: Home Meds . [No Known Home Meds] 03/22/19 [History] Past Medical History - Past Health History Medical/Surgical History: Denies Medical/Surgical History HEENT History: Reports: None Cardiovascular History: Reports: None Respiratory History: Reports: Asthma Gastrointestinal History: Reports: Cholelithiasis Genitourinary History: Reports: None Musculoskeletal History: Reports: None Neurological History: Reports: None Psychiatric History: Reports: Anxiety, Depression Endocrine/Metabolic History: Reports: None Hematologic History: Reports: None Immunologic History: Reports: HIV Oncologic (Cancer) History: Reports: None Dermatologic History: Reports: None - Infectious Disease History Infectious Disease History: Reports: HIV-Human Immunodeficiency Virus - Past Surgical History Head Surgeries/Procedures: Reports: None HEENT Surgical History: Reports: Oral Surgery Respiratory Surgical History: Reports: None GI Surgical History: Reports: None Social & Family History - Family History Family Medical History: Noncontributory - Tobacco Use Smoking Status *Q: Never Smoker - Caffeine Use Caffeine Use: Reports: Soda - Recreational Drug Use Recreational Drug Use: No ED ROS GENERAL - Review of Systems Review Of Systems: See Below ED EXAM, GENERAL - Physical Exam Exam: See Below Course - Vital Signs Last Recorded V/S: Last Vital Signs Temp 36.6 C 03/22/19 00:49 Pulse 55 L 03/22/19 00:49 Resp 14 03/22/19 00:49 BP 132/76 03/22/19 00:49 Pulse Ox 98 03/22/19 00:49 - Orders/Labs/Meds Labs: Laboratory Tests 03/22/19 03/22/19 Range/Units 02:13 02:13 WBC 2.94 L (4.0-11.0) K/uL RBC 4.51 (4.50-5.90) M/uL Hgb 12.2 L (13.0-17.0) g/dL Hct 37.4 L (38.0-50.0) % MCV 82.9 (80.0-98.0) fL MCH 27.1 (27.0-32.0) pg MCHC 32.6 (31.0-37.0) g/dL RDW Std Deviation 38.1 (28.0-62.0) fl RDW Coeff of Freddie 13 (11.0-15.0) % Plt Count 92 L (150-400) K/uL MPV 12.20 H (7.40-12.00) fL Neut % (Auto) 43.6 L (48.0-80.0) % Lymph % (Auto) 45.2 H (16.0-40.0) % Childress % (Auto) 6.8 (0.0-15.0) % Eos % (Auto) 4.1 (0.0-7.0) % Baso % (Auto) 0.3 (0.0-1.5) % Neut # (Auto) 1.3 L (1.4-5.7) K/uL Lymph # (Auto) 1.3 (0.6-2.4) K/uL Childress # (Auto) 0.2 (0.0-0.8) K/uL Eos # (Auto) 0.1 (0.0-0.7) K/uL Baso # (Auto) 0.0 (0.0-0.1) K/uL Nucleated RBC % 0.0 /100WBC Nucleated RBCs # 0 K/uL Sodium 140 (136-148) mmol/L Potassium 4.1 (3.5-5.1) mmol/L Chloride 105 (98-107) mmol/L Carbon Dioxide 30.0 (21.0-32.0) mmol/L BUN 11 (7.0-18.0) mg/dL Creatinine 1.2 (0.8-1.3) mg/dL Est Cr Clr Drug Dosing 80.80 mL/min Estimated GFR (MDRD) > 60.0 ml/min Glucose 94 (74-106) mg/dL Calcium 8.6 (8.5-10.1) mg/dL Total Bilirubin 0.8 (0.2-1.0) mg/dL AST 120 H (15-37) IU/L ALT 73 H (14-63) IU/L Alkaline Phosphatase 81 (46-116) U/L Total Protein 8.4 H (6.4-8.2) g/dL Albumin 3.4 (3.4-5.0) g/dL Globulin 5.0 H (2.6-4.0) g/dL Albumin/Globulin Ratio 0.7 L (0.9-1.6) Lipase 132 (73-393) U/L Departure - Departure Time of Disposition: 02:48 Disposition: Home, Self-Care 01 Clinical Impression: Colic, biliary - Discharge Information Referrals: PCP,Unknown [Primary Care Provider] - Additional Instructions: You were in seen in the [facility] Emergency Department for evaluation of abdominal pain, your found have pain due to your gallstones. Please follow up immediately with general surgery at the information below. You may take ibuprofen and acetaminophen as directed on the bottle for treatment of pain. Please read and follow all of the instructions below. [facility] [address] [place] [address], [address], [place] [address] Please follow up with your primary care physician in 2-3 days. When calling for follow-up care, please make the office aware that this follow-up is from your recent emergency room visit. If for any reason you are refused follow-up, please contact the [facility] Emergency Department at and asked to speak to the emergency department charge nurse. Your care today was limited to identifying and treating emergent medical problems only. Many people have subtle differences in their test results that require follow up with their outpatient physician(s) to correctly determine if this represents a normal variation or concerning abnormality with respect to your specific health. The care given to you today was limited to identifying and treating emergent medical problems - you need to request a copy of all of your medical records from today's visit and follow up with your outpatient physician(s) to review both today's visit and your overall health. If you have any new symptoms or if you are at all concerned about your health please return immediately to the emergency department. Ibuprofen (Brand Names: Motrin, Advil) Take 400 mg with a glass of water every 6 to 8 hours as needed for pain or fever. Do not take for more than 10 days. This medication may cause a mildly upset stomach, if so take it with a small snack. Stop taking it if you have persistent abdominal pain, heartburn, or any stomach pain. Do not take this medication if you have known ulcers. Do not take with Naproxen Sodium (brand name: Aleve) or other non-steroidal antiiflammatory medications that you may be prescribed (e.g. Diclofenac, Etodolac, Indomethicin) WARNING: This drug may infrequently cause serious (rarely fatal) bleeding from the stomach or intestines. Also, related drugs rarely have caused blood clots to form, resulting in heart attacks and strokes. This medication might also rarely cause similar problems. Talk to your doctor or pharmacist about the benefits and risks of treatment, as well as other possible medication choices. If you notice any of the following rare but very serious side effects, stop taking ibuprofen and seek immediate medical attention: black stools, persistent stomach/abdominal pain, vomit that looks like coffee grounds, chest pain, weakness on one side of the body, sudden vision changes, slurred speech. SIDE EFFECTS: Upset stomach, nausea, vomiting, heartburn, headache, diarrhea, constipation, drowsiness, and dizziness may occur. If any of these effects persist or worsen, notify your doctor or pharmacist promptly. If your doctor has directed you to use this medication, remember that he or she has judged that the benefit to you is greater than the risk of side effects. Many people using this medication do not have serious side effects. Tell your doctor immediately if any of these serious side effects occur: stomach pain, swelling of the hands or feet, sudden or unexplained weight gain, ringing in the ears ( tinnitus). Tell your doctor immediately if any of these unlikely but serious side effects occur: vision changes, rapid or pounding heartbeat, easy bruising or bleeding, difficult/painful swallowing. Tell your doctor immediately if any of these highly unlikely but very serious side effects occur: change in amount of urine, severe headache, very stiff neck, mental/mood changes, persistent sore throat or fever. This drug may rarely cause serious (possibly fatal) liver disease. If you notice any of the following highly unlikely but very serious side effects, stop taking ibuprofen and consult your doctor or pharmacist immediately: yellowing eyes and skin, dark urine, unusual/extreme tiredness. An allergic reaction to this drug is unlikely, but seek immediate medical attention if it occurs. Symptoms of an allergic reaction include: rash, itching/ swelling (especially of the face/tongue/throat), severe dizziness, trouble breathing. This is not a complete list of possible side effects. DRUG INTERACTIONS: Your healthcare professionals (e.g., doctor or pharmacist) may already be aware of any possible drug interactions and may be monitoring you for it. Do not start, stop or change the dosage of any medicine before checking with them first. This drug should not be used with the following medications because very serious interactions may occur: cidofovir, ketorolac. If you are currently using any of these medications listed above, tell your doctor or pharmacist before starting ibuprofen. Before using this medication, tell your doctor or pharmacist of all prescription and nonprescription/herbal products you may use, especially of: anti-platelet drugs (e.g., cilostazol, clopidogrel), oral bisphosphonates (e.g., alendronate), other medications for arthritis (e.g., aspirin, methotrexate), "blood thinners" (e.g., enoxaparin, heparin, warfarin), corticosteroids (e.g., prednisone), cyclosporine, desmopressin, high blood pressure drugs (including OCHOA inhibitors such as captopril, angiotensin II receptor antagonists such as losartan, and beta- blockers such as metoprolol), lithium, pemetrexed, "water pills" (diuretics such as furosemide, hydrochlorothiazide, triamterene). Check all prescription and nonprescription medicine labels carefully for other pain/fever drugs ( NSAIDs such as aspirin, celecoxib, naproxen). These drugs are similar to ibuprofen, so taking one of these drugs while also taking ibuprofen may increase your risk of side effects. Consult your doctor or pharmacist for more details. However, if your doctor has prescribed low doses of aspirin to prevent heart attack or stroke (usually at dosages of 81-325 milligrams a day), you should continue to take the aspirin. Daily use of ibuprofen may decrease aspirin 's ability to prevent heart attack/stroke. Talk to your doctor about using a different medication (e.g., acetaminophen) to treat pain/fever. If you must take ibuprofen, talk to your doctor about possibly taking immediate-release aspirin (not enteric-coated) while also taking the ibuprofen dose apart from your aspirin dose. Do not increase your daily dose of aspirin or change the way you take aspirin/other medications without your doctor's approval. This document does not contain all possible interactions. Therefore, before using this product, tell your doctor or pharmacist of all the products you use. Keep a list of all your medications with you, and share the list with your doctor and pharmacist. Acetaminophen (Tylenol) Please take 1,000 mg every 6 hours as needed for pain. Do no use with alcohol or other acetaminophen containing medications. SIDE EFFECTS: This drug usually has no side effects. If you do not have liver problems, the maximum dose of acetaminophen for adults is 4 grams per day (4000 milligrams). Taking more than the maximum daily amount may cause serious ( possibly fatal) liver damage. Get medical help right away if you have any of the following symptoms of liver damage: persistent nausea/vomiting, extreme tiredness, stomach/abdominal pain, yellowing eyes/skin, dark urine. If you have liver problems, consult your doctor or pharmacist for a safe dosage of this medication. A very serious allergic reaction to this drug is rare. However, get medical help right away if you notice any symptoms of a serious allergic reaction, including: rash, itching/swelling (especially of the face/tongue/ throat), severe dizziness, trouble breathing. This is not a complete list of possible side effects. If you notice other effects not listed above, contact your doctor or pharmacist. Abdominal Pain The exact cause of your abdominal pain is not certain. Based upon the testing today you are felt to be at low risk for discharge. There are no current signs of a life threatening illness or injury. Your condition does not seem serious now; however, sometimes the signs of a serious problem may take more time to appear. For this reason, it is important for you to watch for any new symptoms, problems, or worsening of your condition. Over the next few days, the abdominal pain may come and go, or be continuous. Other common symptoms can include nausea and vomiting. Sometimes it can be difficult to tell if you feel nauseous , you may just feel bad and not associate that feeling with nausea. Constipation , diarrhea, and a fever may go along with the pain. The pain may continue even if treated correctly over the following days. Depending on how things go, sometimes the cause can become clear and may require further or different treatment. Additional evaluations, medications, or tests may be needed. If your symptoms do not worsen but you are still having pain after 12-24 hours, please call your primary care physician to arrange for further evaluation. Return to the emergency department if any of the following occur: Pain gets worse or moves to the right lower abdomen New or worsening vomiting or diarrhea Swelling of the abdomen Unable to pass gas or stool for more than 8 hours Fever of 100.4F (38C) or higher, or as directed by your healthcare provider. Blood in vomit or bowel movements (dark red or black color) If you have yellow skin or eyes or if you have dark brown urine. Weakness, dizziness Chest, arm, back, neck or jaw pain Unexpected vaginal bleeding or missed period Trouble breathing Confusion Fainting or loss of consciousness Rapid heart rate Seizure If you are light headed upon standing or passing out. If you are otherwise concerned about your health. Home Care Do not force yourself to eat, especially if having cramps, vomiting, or diarrhea. Water is important so you do not get dehydrated. Soup may also be good. Sports drinks may also help, especially if they are not too acidic. Make sure you don't drink sugary drinks as this can make things worse. Take liquids in small amounts. Caffeine sometimes makes the pain and cramping worse. Avoid dairy products if you have vomiting or diarrhea. Don't eat large amounts at a time. Wait a few minutes between bites. Eat a diet low in fiber (called a low-residue diet). Foods allowed include refined breads, white rice, fruit and vegetable juices without pulp, tender meats. These foods will pass more easily through the intestine. Avoid whole-grain foods, whole fruits and vegetables, meats, seeds and nuts , fried or fatty foods, dairy, alcohol and spicy foods until your symptoms go away. Prescriptions: If you are uninsured or have financial difficulties with filling your prescription(s), you may consider using a free pharmacy discount service such as [employer] ([employer]) or [employer] ([facility]). These services allow you to search for a medication on your phone (or computer) and obtain a coupon that usually has a significant discount from the list escalante at a pharmacy. Your physician as well as [facility] does not have a financial relationship with either of these services. You may also wish to speak with your physician to determine if lower cost prescriptions are possible. Obtaining primary care: 1. [facility] provides pediatrics (children), family medicine (children, adults, and some obstetrical care), and internal medicine (adults). Further specialty care is also available. Same day appointments are available. They may be contacted at [phone] and are open Friday through Friday 8 AM to 5 PM. [facility] are located at [facility], [address] [place] [address]. 2. [facility] offers family medicine, internal medicine, womens health, and further specialty care. [facility] may be contacted at [phone]. [facility] is located at [address] [facility] [address]. 3. If you have health insurance, please also contact your insurer for a list of accepting providers under your policy, you may contact these providers for further health care. Occupational health: Work related injuries may consider following up with [facility], . Occupational health services are located at [address] [place] [phone] and are open Friday through Friday from 7: 30 am to 5:00 pm. Obstetrical and Gynecological Care: [facility], , Friday through Friday 8 AM to [address] [place] [address]. Eyecare: If you have an eye injury you should follow up with your systems technologist or with [facility], at [phone] or [phone] , they are located at [address] [place] [address]. Dental Care Mauro Steele DDS. [address] [place], [place]. Ph. [phone] Tylor Steele DDS MS. [address] Ph[address] Kris Schneider DDS. 10 03/[address] [place] [address], [place], [place]. Ph. [phone] [place] Akbar DDS. [address] [facility] [address] [place], [place]. Ph. [phone] Wilbur Marcial DDS PC. [address] [facility] [address] [place], [place]. Ph. Raymundo Gonzalez DDS. [address] [facility] [facility] [address] [facility]. Ph. [phone] [facility]. [address] [place], [place]. Ph. [phone] [facility]. [address], [place], [place]. Ph. [phone] [facility] [address] [place] [address]. Ph. [facility]. [address] [place] [address] [address] [place], [place]. Ph. [phone] [facility]. [address] [facility] [place]. Ph. [phone] Sepsis Event Note - Evaluation Sepsis Screening Result: No Definite Risk - Focused Exam Vital Signs: Vital Signs Temp Pulse Resp BP Pulse Ox 03/22/19 00:49 36.6 C 55 L 14 132/76 98 Date Exam was Performed: 03/22/19 Time Exam was Performed: 02:47
== END 2019-03-22 03:15 | disposition home or self-care (01) ==
LOC: MW.ED 00:18
DX: K80.70 Calculus of gallbladder and bile duct without cholecystitis without obstruction (principal); Z21 Asymptomatic human immunodeficiency virus [HIV] infection status
CPT/HCPCS: 36415; 80053; 83690; 85025; 99283; 99284

== ENCOUNTER 2019-03-23 07:30 | Emergency (ER) | payer OTHER, SELFPAY ==
[2019-03-23] MEDS ORDERED: Ketorolac 30 MG/ML SDV IVPUSH ONE (07:55)
[2019-03-23] MEDS ORDERED: Ondansetron 4 MG/2 ML SDV IVPUSH ONE (07:55)
--- NOTE | 2019-03-23 08:07 | EDM.PDOC ---
ED HPI GENERAL MEDICAL PROBLEM - General Chief Complaint: Abdominal Pain Stated Complaint: GALLBLADDER ISSUES Time Seen by Provider: 03/23/19 07:50 Source of Information: Reports: Patient, Old Records History Limitations: Reports: No Limitations - History of Present Illness INITIAL COMMENTS - FREE TEXT/NARRATIVE: Patient is 28-year-old male history of HIV not currently taking medications as well as history of cholelithiasis. Patient has right upper quadrant pain similar to prior episodes of biliary colic. Patient has numerous prior visits for similar complaints and has not followed up appropriately with surgery to have an elective cholecystectomy. Patient reports pain onset this morning while he was at work which was severe in nature and associated with one episode of vomiting. Patient denies any fevers, chills, urinary symptoms. Patient had a visit for similar complaint yesterday and had ultrasound performed which did not demonstrate any cholecystitis. Due to patient's high risk features and HIV status is not candidate for cholecystectomy at this hospital and has been referred multiple times to other facilities for cholecystectomy. However, patient has not followed up and continues to return to the emergency room for pain medications and expecting gallbladder removal here. In addition to that documented in the HPI above, the additional ROS was obtained : Constitutional: Denies fevers or chills Eyes: Denies vision changes ENMT: Denies sore throat CV: Denies chest pain Resp: Denies SOB GI: Per HPI : Denies painful urination MSK: Denies recent trauma Skin: Denies new rashes Neuro: Denies new numbness or tingling or weakness Endocrine: Denies unexpected weight loss Heme: Denies bleeding disorders I have reviewed the triage vital signs Const: Well nourished, well developed, appears stated age Eyes: PERRL, no conjunctival injection HENT: NCAT, Neck supple without meningismus CV: RRR, Warm, well-perfused extremities RESP: CTAB, Unlabored respiratory effort GI: Tender to palpation of the right upper quadrant, soft abdomen, non-distended , no masses MSK: No gross deformities appreciated Skin: Warm, dry. No rashes Neuro: Alert, in service educator II-XII grossly intact. Sensation and motor function of extremities grossly intact. Psych: Appropriate mood and affect Assessment and plan: Patient 28-year-old male presenting with right upper abdominal pain consistent with biliary colic. Patient has normal labs no fever no elevated white blood cell count. Is unclear if this patient has cholecystitis at this time and has no evidence of hepatitis or pancreatitis. Patient's pain improved after the administration of ketorolac and Zofran. Patient's repeat abdominal exam does not demonstrate any guarding or rebound and is tenderness is improved. Patient urged to follow-up as an outpatient for elective cholecystectomy. Patient did have any indication for emergent transfer or admission to the hospital. All questions addressed and answered. Patient agrees with plan RUQ abd Pain Score (Numeric/FACES): 8 - Related Data Allergies Allergy/AdvReac Type Severity Reaction Status Date / Time No Known Allergies Allergy Verified 03/22/19 00:48 Home Meds: Home Meds . [No Known Home Meds] 03/22/19 [History] Past Medical History - Past Health History Medical/Surgical History: Denies Medical/Surgical History HEENT History: Reports: None Cardiovascular History: Reports: None Respiratory History: Reports: Asthma Gastrointestinal History: Reports: Cholelithiasis Genitourinary History: Reports: None Musculoskeletal History: Reports: None Neurological History: Reports: None Psychiatric History: Reports: Anxiety, Depression Endocrine/Metabolic History: Reports: None Hematologic History: Reports: None Immunologic History: Reports: HIV Oncologic (Cancer) History: Reports: None Dermatologic History: Reports: None - Infectious Disease History Infectious Disease History: Reports: HIV-Human Immunodeficiency Virus - Past Surgical History Head Surgeries/Procedures: Reports: None HEENT Surgical History: Reports: Oral Surgery Respiratory Surgical History: Reports: None GI Surgical History: Reports: None Social & Family History - Family History Family Medical History: Noncontributory - Tobacco Use Smoking Status *Q: Never Smoker - Caffeine Use Caffeine Use: Reports: Soda - Recreational Drug Use Recreational Drug Use: No ED ROS GENERAL - Review of Systems Review Of Systems: See Below ED EXAM, GI/ABD - Physical Exam Exam: See Below Course - Vital Signs Last Recorded V/S: Last Vital Signs Temp 35.5 C 03/23/19 07:34 Pulse 68 03/23/19 07:34 Resp 18 03/23/19 07:34 BP 115/73 03/23/19 07:34 Pulse Ox 95 03/23/19 07:34 - Orders/Labs/Meds Labs: Laboratory Tests 03/23/19 03/23/19 Range/Units 08:05 08:05 WBC 4.42 (4.0-11.0) K/uL RBC 4.71 (4.50-5.90) M/uL Hgb 12.9 L (13.0-17.0) g/dL Hct 38.9 (38.0-50.0) % MCV 82.6 (80.0-98.0) fL MCH 27.4 (27.0-32.0) pg MCHC 33.2 (31.0-37.0) g/dL RDW Std Deviation 38.6 (28.0-62.0) fl RDW Coeff of Freddie 13 (11.0-15.0) % Plt Count 121 L (150-400) K/uL MPV 12.40 H (7.40-12.00) fL Neut % (Auto) 21.3 L (48.0-80.0) % Lymph % (Auto) 62.9 H (16.0-40.0) % Waldo % (Auto) 9.7 (0.0-15.0) % Eos % (Auto) 5.4 (0.0-7.0) % Baso % (Auto) 0.7 (0.0-1.5) % Neut # (Auto) 0.9 L (1.4-5.7) K/uL Lymph # (Auto) 2.8 H (0.6-2.4) K/uL Waldo # (Auto) 0.4 (0.0-0.8) K/uL Eos # (Auto) 0.2 (0.0-0.7) K/uL Baso # (Auto) 0.0 (0.0-0.1) K/uL Nucleated RBC % 1.6 /100WBC Nucleated RBCs # 0 K/uL Sodium 140 (136-148) mmol/L Potassium 4.0 (3.5-5.1) mmol/L Chloride 104 (98-107) mmol/L Carbon Dioxide 29.9 (21.0-32.0) mmol/L BUN 12 (7.0-18.0) mg/dL Creatinine 1.2 (0.8-1.3) mg/dL Est Cr Clr Drug Dosing 80.80 mL/min Estimated GFR (MDRD) > 60.0 ml/min Glucose 92 (74-106) mg/dL Calcium 9.1 (8.5-10.1) mg/dL Total Bilirubin 0.8 (0.2-1.0) mg/dL AST 57 H (15-37) IU/L ALT 63 (14-63) IU/L Alkaline Phosphatase 83 (46-116) U/L Total Protein 9.2 H (6.4-8.2) g/dL Albumin 3.8 (3.4-5.0) g/dL Globulin 5.4 H (2.6-4.0) g/dL Albumin/Globulin Ratio 0.7 L (0.9-1.6) Lipase 222 (73-393) U/L Meds: Medications Discontinued Medications Generic Name Dose Route Start Last Admin Trade Name Freq PRN Reason Stop Dose Admin Ketorolac Tromethamine 15 mg 03/23/19 07:55 03/23/19 08:14 Toradol IVPUSH 03/23/19 07:56 15 mg ONETIME ONE Administration Ondansetron HCl 4 mg 03/23/19 07:55 03/23/19 08:14 Zofran IVPUSH 03/23/19 07:56 4 mg ONETIME ONE Administration Departure - Departure Time of Disposition: 09:24 Disposition: Home, Self-Care 01 Clinical Impression: Biliary colic - Discharge Information Instructions: Cholelithiasis, [id number] Referrals: PCP,None [Primary Care Provider] - Forms: ED Department Discharge Sepsis Event Note - Evaluation Sepsis Screening Result: No Definite Risk - Focused Exam Vital Signs: Vital Signs Temp Pulse Resp BP Pulse Ox 03/23/19 07:34 35.5 C 68 18 115/73 95 Date Exam was Performed: 03/23/19 Time Exam was Performed: 09:23
[2019-03-23 09:04] LABS: BLOOD UREA NITROGEN,BUN 12 mg/dL (7.0-18.0); CARBON DIOXIDE,CO2 29.9 mmol/L (21.0-32.0); CHLORIDE,CL 104 mmol/L (98-107); GLUCOSE RANDOM 92 mg/dL (74-106); LIPASE 222 U/L (73-393); SODIUM,NA 140 mmol/L (136-148)
== END 2019-03-23 09:33 | disposition home or self-care (01) ==
LOC: MW.ED 07:30
DX: K80.50 Calculus of bile duct without cholangitis or cholecystitis without obstruction (principal); Z98.890 Other specified postprocedural states
CPT/HCPCS: 36415; 80053; 83690; 85025; 96374; 96375; 99284; J1885; J2405; 99283

== ENCOUNTER 2019-03-25 08:53 | Emergency (ER) | payer OTHER ==
[2019-03-25] MEDS ORDERED: Ketorolac 30 MG/ML SDV IM ONE (09:18)
[2019-03-25] MEDS ORDERED: Ondansetron 4 MG/2 ML SDV IM ONE (09:18)
--- NOTE | 2019-03-25 10:03 | EDM.PDOC ---
ED [facility] GENERAL MEDICAL PROBLEM - General Chief Complaint: Abdominal Pain Stated Complaint: GALLBLADDER PAIN Time Seen by Provider: 03/25/19 09:25 Source of Information: Reports: Patient History Limitations: Reports: No Limitations - History of Present Illness INITIAL COMMENTS - FREE TEXT/NARRATIVE: Patient is a 28-year-old male with a known history of biliary colic with numerous visits to the emergency room for abdominal pain. Patient was seen in Friday by myself and evaluated. Patient's previous labs were reviewed. Patient reports typical right upper quadrant abdominal pain associate with nausea. Patient denies any fevers, change in pain quality or severity. Patient reports that he is established with a primary care and has an appointment on Friday. Patient is requesting pain medication until his appointment on Friday. Denies vomiting or diarrhea. Denies any skin changes. In addition to that documented in the HPI above, the additional ROS was obtained : Constitutional: Denies fevers or chills Eyes: Denies vision changes ENMT: Denies sore throat CV: Denies chest pain Resp: Denies SOB GI: Denies vomiting or diarrhea : Denies painful urination MSK: Denies recent trauma Skin: Denies new rashes Neuro: Denies new numbness or tingling or weakness Endocrine: Denies unexpected weight loss Heme: Denies bleeding disorders I have reviewed the triage vital signs Const: Well nourished, well developed, appears stated age Eyes: PERRL, no conjunctival injection HENT: NCAT, Neck supple without meningismus CV: RRR, Warm, well-perfused extremities RESP: CTAB, Unlabored respiratory effort GI: Mild tender to palpation of the right upper quadrant. No guarding or rebound, non-distended, no masses MSK: No gross deformities appreciated Skin: Warm, dry. No rashes Neuro: Alert, administration internship II-XII grossly intact. Sensation and motor function of extremities grossly intact. Psych: Appropriate mood and affect Assessment and plan Patient is a 28-year-old male with biliary colic. Patient given Toradol and Zofran in the emergency room with improvement of symptoms. Cholecystitis was considered however given extensive history of repeat symptoms and known cholelithiasis, unlikely the patient has cholecystitis at this time. Patient will follow up with primary care. Patient will require elective cholecystectomy at some point. Patient given strict return precautions. All questions addressed and answered. Patient agrees with plan Abdominal Pain Score (Numeric/FACES): 10 - Related Data Allergies Allergy/AdvReac Type Severity Reaction Status Date / Time No Known Allergies Allergy Verified 03/25/19 08:58 Home Meds: Home Meds Diclofenac Potassium [Zipsor] 50 mg PO Q8HR #60 capsule 03/25/19 [Rx] Past Medical History - Past Health History Medical/Surgical History: Denies Medical/Surgical History HEENT History: Reports: None Cardiovascular History: Reports: None Respiratory History: Reports: Asthma Gastrointestinal History: Reports: Cholelithiasis Genitourinary History: Reports: None Musculoskeletal History: Reports: None Neurological History: Reports: None Psychiatric History: Reports: Anxiety, Depression Endocrine/Metabolic History: Reports: None Hematologic History: Reports: None Immunologic History: Reports: HIV Oncologic (Cancer) History: Reports: None Dermatologic History: Reports: None - Infectious Disease History Infectious Disease History: Reports: HIV-Human Immunodeficiency Virus - Past Surgical History Head Surgeries/Procedures: Reports: None HEENT Surgical History: Reports: Oral Surgery Respiratory Surgical History: Reports: None GI Surgical History: Reports: None Social & Family History - Family History Family Medical History: Noncontributory - Tobacco Use Smoking Status *Q: Never Smoker - Caffeine Use Caffeine Use: Reports: None - Recreational Drug Use Recreational Drug Use: No ED ROS GENERAL - Review of Systems Review Of Systems: See Below ED EXAM, GI/ABD - Physical Exam Exam: See Below Course - Vital Signs Last Recorded V/S: Last Vital Signs Temp 35.7 C 03/25/19 08:58 Pulse 58 L 03/25/19 08:58 Resp 17 03/25/19 08:58 BP 121/79 03/25/19 08:58 Pulse Ox 97 03/25/19 08:58 - Orders/Labs/Meds Meds: Medications Discontinued Medications Generic Name Dose Route Start Last Admin Trade Name Freq PRN Reason Stop Dose Admin Ketorolac Tromethamine 30 mg 03/25/19 09:18 03/25/19 09:32 Toradol IM 03/25/19 09:19 30 mg ONETIME ONE Administration Ondansetron HCl 8 mg 03/25/19 09:18 03/25/19 09:32 Zofran IM 03/25/19 09:19 8 mg ONETIME ONE Administration Departure - Departure Time of Disposition: 10:03 Disposition: Home, Self-Care 01 Clinical Impression: Biliary colic - Discharge Information Prescriptions: Diclofenac Potassium [Zipsor] 50 mg PO Q8HR #60 capsule Instructions: Cholelithiasis Referrals: PCP,None [Primary Care Provider] - Forms: ED Department Discharge Additional Instructions: The following information is given to patients seen in the emergency department who are being discharged to home. This information is to outline your options for follow-up care. We provide all patients seen in our emergency department with a follow-up referral. The need for follow-up, as well as the timing and circumstances, are variable depending upon the specifics of your emergency department visit. If you don't have a primary care physician on staff, we will provide you with a referral. We always advise you to contact your personal physician following an emergency department visit to inform them of the circumstance of the visit and for follow-up with them and/or the need for any referrals to a consulting specialist. The emergency department will also refer you to a specialist when appropriate. This referral assures that you have the opportunity for follow-up care with a specialist. All of these measure are taken in an effort to provide you with optimal care, which includes your follow-up. Under all circumstances we always encourage you to contact your private physician who remains a resource for coordinating your care. When calling for follow-up care, please make the office aware that this follow-up is from your recent emergency room visit. If for any reason you are refused follow-up, please contact the [facility] Emergency Department at and asked to speak to the emergency department charge nurse. Sepsis Event Note - Evaluation Sepsis Screening Result: No Definite Risk - Focused Exam Vital Signs: Vital Signs Temp Pulse Resp BP Pulse Ox 03/25/19 08:58 35.7 C 58 L 17 121/79 97 Date Exam was Performed: 03/25/19 Time Exam was Performed: 10:00
== END 2019-03-25 10:13 | disposition home or self-care (01) ==
LOC: MW.ED 08:53
DX: K80.50 Calculus of bile duct without cholangitis or cholecystitis without obstruction (principal); J45.909 Unspecified asthma, uncomplicated
CPT/HCPCS: 96372; 99283; J1885; J2405

== ENCOUNTER 2019-03-27 11:22 | Emergency (ER) | payer SELFPAY ==
--- NOTE | 2019-03-27 11:58 | EDM.PDOC ---
ED HPI GENERAL MEDICAL PROBLEM - General Chief Complaint: Abdominal Pain Stated Complaint: GALLBLADDER Time Seen by Provider: 03/27/19 11:58 Source of Information: Reports: Patient History Limitations: Reports: No Limitations - History of Present Illness INITIAL COMMENTS - FREE TEXT/NARRATIVE: HISTORY AND PHYSICAL: History of present illness: Patient is a 28-year-old male history of HIV presents to the ED with complaint of gallbladder pain. Patient is well known to the ED and has been seen multiple times in the past regarding cholelithiasis. Patient was last seen 2 days ago. He states he was given prescription for diclofenac and this does not help with his pain. He states he works at [employer] and the smells bother him. He also states when he bends down he gets abdominal pain. He denies new or worsening abdominal pain since his previous visit. He states he is needing a note for work with restrictions such as not bending over. He states he has an appointment with a primary care provider to get referrral for surgery on Friday. He denies fevers or chills. He states he had an episode of vomiting this morning and reports nonbloody diarrhea. Review of systems: As per history of present illness and below otherwise all systems reviewed and negative. Past medical history: As per history of present illness and as reviewed below otherwise noncontributory. Surgical history: As per history of present illness and as reviewed below otherwise noncontributory. Social history: No reported history of drug or alcohol abuse. Family history: As per history of present illness and as reviewed below otherwise noncontributory. Physical exam: General: Patient sitting comfortably in no acute distress and nontoxic appearing HEENT: Atraumatic, normocephalic, pupils reactive, negative for conjunctival pallor or scleral icterus, mucous membranes moist, throat clear, neck supple, nontender, trachea midline. No meningeal signs. Lungs: Clear to auscultation, breath sounds equal bilaterally, chest nontender. Heart: S1S2, regular, negative for clicks, rubs, or overt murmur. Abdomen: Mild RUQ tenderness to palpation. Soft, nondistended, nontender. Negative for masses or hepatosplenomegaly. Negative for costovertebral tenderness. No rigidity, rebound, guarding. Pelvis: Stable nontender. Genitourinary: Deferred. Rectal: Deferred. Extremities: Atraumatic, negative for cords or calf pain. Neurovascular unremarkable. Neuro: Awake, alert, oriented. Cranial nerves II through XII unremarkable. Cerebellum unremarkable. Motor and sensory unremarkable throughout. Exam nonfocal. Notes: Patient had labs 4 days ago and is not having new or worsening symptoms at this time. He is declining a work up today. He was giving precautions for returning to ED. Diagnostics: declined Therapeutics: declined IM Toradol Bentyl 10mg PO Prescriptions: Bentyl Impression: RUQ abdominal pain with history of cholelithiasis Plan: Take Bentyl as instructed Follow up with primary care provider Return to ED As needed as discussed Definitive disposition and diagnosis as appropriate pending reevaluation and review of above. abd pain Pain Score (Numeric/FACES): 8 - Related Data Allergies Allergy/AdvReac Type Severity Reaction Status Date / Time No Known Allergies Allergy Verified 03/27/19 11:34 Home Meds: Home Meds Diclofenac Potassium [Zipsor] 50 mg PO Q8HR #60 capsule 03/25/19 [Rx] Dicyclomine [Bentyl] 10 mg PO QIDACANDBED #15 cap 03/27/19 [Rx] Past Medical History - Past Health History Medical/Surgical History: Denies Medical/Surgical History HEENT History: Reports: None Cardiovascular History: Reports: None Respiratory History: Reports: Asthma Gastrointestinal History: Reports: Cholelithiasis Genitourinary History: Reports: None Musculoskeletal History: Reports: None Neurological History: Reports: None Psychiatric History: Reports: Anxiety, Depression Endocrine/Metabolic History: Reports: None Hematologic History: Reports: None Immunologic History: Reports: HIV Oncologic (Cancer) History: Reports: None Dermatologic History: Reports: None - Infectious Disease History Infectious Disease History: Reports: HIV-Human Immunodeficiency Virus - Past Surgical History Head Surgeries/Procedures: Reports: None HEENT Surgical History: Reports: Oral Surgery Respiratory Surgical History: Reports: None GI Surgical History: Reports: None Social & Family History - Family History Family Medical History: Noncontributory - Tobacco Use Smoking Status *Q: Never Smoker - Caffeine Use Caffeine Use: Reports: None - Recreational Drug Use Recreational Drug Use: No ED ROS GENERAL - Review of Systems Review Of Systems: Comprehensive ROS is negative, except as noted in HPI. ED EXAM, GI/ABD - Physical Exam Exam: See Below (see dictation) Course - Vital Signs Last Recorded V/S: Last Vital Signs Temp 96.2 F 03/27/19 11:33 Pulse 51 L 03/27/19 11:33 Resp 16 03/27/19 11:33 BP 108/66 03/27/19 11:33 Pulse Ox 100 03/27/19 11:33 - Orders/Labs/Meds Meds: Medications Discontinued Medications Generic Name Dose Route Start Last Admin Trade Name Erin PRN Reason Stop Dose Admin Dicyclomine HCl 10 mg 03/27/19 12:25 Bentyl PO 03/27/19 12:26 ONETIME ONE Departure - Departure Time of Disposition: 12:31 Disposition: Home, Self-Care 01 Condition: Good Clinical Impression: RUQ pain, History of cholelithiasis - Discharge Information Prescriptions: Dicyclomine [Bentyl] 10 mg PO QIDACANDBED #15 cap Referrals: PCP,None [Primary Care Provider] - Forms: ED Department Discharge Additional Instructions: The following information is given to patients seen in the emergency department who are being discharged to home. This information is to outline your options for follow-up care. We provide all patients seen in our emergency department with a follow-up referral. The need for follow-up, as well as the timing and circumstances, are variable depending upon the specifics of your emergency department visit. If you don't have a primary care physician on staff, we will provide you with a referral. We always advise you to contact your personal physician following an emergency department visit to inform them of the circumstance of the visit and for follow-up with them and/or the need for any referrals to a consulting specialist. The emergency department will also refer you to a specialist when appropriate. This referral assures that you have the opportunity for follow-up care with a specialist. All of these measure are taken in an effort to provide you with optimal care, which includes your follow-up. Under all circumstances we always encourage you to contact your private physician who remains a resource for coordinating your care. When calling for follow-up care, please make the office aware that this follow-up is from your recent emergency room visit. If for any reason you are refused follow-up, please contact the [facility] Emergency Department at and asked to speak to the emergency department charge nurse. [facility] [address] [place] [address], [place] [id number] [facility] [address] [place] [id number] Take Bentyl as instructed Follow up with primary care provider Return to ED As needed as discussed Sepsis Event Note - Evaluation Sepsis Screening Result: No Definite Risk - Focused Exam Vital Signs: Vital Signs Temp Pulse Resp BP Pulse Ox 03/27/19 11:33 96.2 F 51 L 16 108/66 100 Date Exam was Performed: 03/27/19 Time Exam was Performed: 12:30
[2019-03-27] MEDS ORDERED: Dicyclomine 10 MG Cap PO ONE (12:25)
== END 2019-03-27 12:57 | disposition home or self-care (01) ==
LOC: MW.ED 11:22
DX: R10.11 Right upper quadrant pain (principal); Z87.19 Personal history of other diseases of the digestive system
CPT/HCPCS: 99283; A9270

== ENCOUNTER 2019-04-13 03:48 | Emergency (ER) | payer SELFPAY ==
--- NOTE | 2019-04-13 04:01 | EDM.PDOC ---
ED HPI GENERAL MEDICAL PROBLEM - General Stated Complaint: GALL BLADDER ISSUES, VOMITING Time Seen by Provider: 04/13/19 03:53 - History of Present Illness INITIAL COMMENTS - FREE TEXT/NARRATIVE: HISTORY AND PHYSICAL: History of present illness: The patient is a 28-year-old man with a history of HIV positive status who takes maintenance medications and is well-known to this ED department as well as this provider for multiple ED visits for upper abdominal pain and biliary colic. The patient has been seen in 19 times in the emergency department in 2018 and already lin is his sixth visit this month alone in the emergency department. He was also seen in outpatient in radiology on April 01 for an outpatient ultrasound which I reviewed revealing sludge in the gallbladder but no overt stones or ductal dilatation and no gallbladder wall thickening. The patient was also supposed to be seen in the clinic but when he presented they requested a co-pay which he did not have so he had to reschedule that appointment and the soonest they could see him is in April. The patient's lab work over the last few months has always been within normal limits and it has been stressed to him on every single visit here to the ED his need for follow-up with general surgery and primary care and he does he would like to do that but he was unable to make the family practice appointment due to the financial reasons and he has not connected with any of the surgeons at , as per his testimony he is already been seen in our surgery clinic and they felt that he needed to have his surgery at a higher level of care due to his HIV status. This morning he presents with similar symptoms to all prior visits with right upper quadrant pain and nausea but no vomiting. He says that he did not eat anything in the last 24 hours but did have chicken wings 2 days ago. He has not had diarrhea no fevers no flank pain and no urinary complaints. He says the pain is not new or different than prior episodes and it is localized in the right upper quadrant. Review of systems: As per history of present illness and below otherwise all systems reviewed and negative. Past medical history: As per history of present illness and as reviewed below otherwise noncontributory. Surgical history: As per history of present illness and as reviewed below otherwise noncontributory. Social history: No reported history of drug or alcohol abuse. Family history: As per history of present illness and as reviewed below otherwise noncontributory. Physical exam: General: Developed well-nourished thin man who is nontoxic and vital signs are noted by me HEENT: Atraumatic, normocephalic, pupils reactive, negative for conjunctival pallor or scleral icterus, mucous membranes moist, throat clear, neck supple, nontender, trachea midline. Lungs: Clear to auscultation, breath sounds equal bilaterally, chest nontender. Heart: S1S2, regular, negative for clicks, rubs, or JVD. Abdomen: Soft, nondistended, no tenderness in right upper quadrant with no other areas of discomfort with palpation and bowel sounds are slightly hypoactive and there is no tympany on percussion.. Negative for masses or hepatosplenomegaly. Negative for costovertebral tenderness. Pelvis: deferred Genitourinary: Deferred. Rectal: Deferred. Extremities: Atraumatic, negative for cords or calf pain. Neurovascular unremarkable. Neuro: Awake, alert, oriented. Cranial nerves II through XII unremarkable. Cerebellum unremarkable. Motor and sensory unremarkable throughout. Exam nonfocal. Diagnostics: CBC CMP amylase lipase Therapeutics: IV fluids Zofran Toradol Discussed with the patient that as long as he could come up with a co-pay I will place him on the expedited follow-up so that they can move his appointment up sooner and he could discuss with the resident and the family practice clinic the care plan going forward. I will give him some Zofran and Levsin for home and have strictly advised him about dietary restrictions. Impression: Acute on chronic right upper quadrant pain/biliary colic Definitive disposition and diagnosis as appropriate pending reevaluation and review of above. abdominal Pain Score (Numeric/FACES): 8 - Related Data Allergies Allergy/AdvReac Type Severity Reaction Status Date / Time No Known Allergies Allergy Verified 04/13/19 04:05 Home Meds: Home Meds . [No Known Home Meds] 04/13/19 [History] Past Medical History - Past Health History Medical/Surgical History: Denies Medical/Surgical History HEENT History: Reports: None Cardiovascular History: Reports: None Respiratory History: Reports: Asthma Gastrointestinal History: Reports: Cholelithiasis Genitourinary History: Reports: None Musculoskeletal History: Reports: None Neurological History: Reports: None Psychiatric History: Reports: Anxiety, Depression Endocrine/Metabolic History: Reports: None Hematologic History: Reports: None Immunologic History: Reports: HIV Oncologic (Cancer) History: Reports: None Dermatologic History: Reports: None - Infectious Disease History Infectious Disease History: Reports: HIV-Human Immunodeficiency Virus - Past Surgical History Head Surgeries/Procedures: Reports: None HEENT Surgical History: Reports: Oral Surgery Respiratory Surgical History: Reports: None GI Surgical History: Reports: None Social & Family History - Family History Family Medical History: Noncontributory - Caffeine Use Caffeine Use: Reports: None ED ROS GENERAL - Review of Systems Review Of Systems: Comprehensive ROS is negative, except as noted in HPI. ED EXAM, GENERAL - Physical Exam Exam: See Below (See dictation) Course - Vital Signs Last Recorded V/S: Last Vital Signs Temp 36.3 C 04/13/19 03:50 Pulse 57 L 04/13/19 03:50 Resp 18 04/13/19 03:50 BP 124/94 H 04/13/19 03:50 Pulse Ox 98 04/13/19 03:50 - Orders/Labs/Meds Orders: Active Orders 24 hr Category Date Time Status Sodium Chloride 0.9% [Normal Saline] 1,000 ml Med 04/13/19 04:08 Active IV STAT Sodium Chloride 0.9% [Saline Flush] Med 04/13/19 04:08 Active 10 ml FLUSH ASDIRECTED PRN Sodium Chloride 0.9% [Saline Flush] Med 04/13/19 04:08 Active 2.5 ml FLUSH ASDIRECTED PRN Saline Lock Insert [OM.PC] Stat Oth 04/13/19 04:08 Ordered Medication Orders Sodium Chloride (Normal Saline) 1,000 mls @ 999 mls/hr IV STAT ONE Stop: 04/13/19 05:08 Last Admin: 04/13/19 04:19 Dose: 999 mls/hr Sodium Chloride (Saline Flush) 10 ml FLUSH ASDIRECTED PRN PRN Reason: Keep Vein Open Sodium Chloride (Saline Flush) 2.5 ml FLUSH ASDIRECTED PRN PRN Reason: Keep Vein Open Labs: Laboratory Tests 04/13/19 04/13/19 Range/Units 04:17 04:17 WBC 3.95 L (4.0-11.0) K/uL RBC 4.45 L (4.50-5.90) M/uL Hgb 12.3 L (13.0-17.0) g/dL Hct 36.4 L (38.0-50.0) % MCV 81.8 (80.0-98.0) fL MCH 27.6 (27.0-32.0) pg MCHC 33.8 (31.0-37.0) g/dL RDW Std Deviation 40.9 (28.0-62.0) fl RDW Coeff of Freddie 14 (11.0-15.0) % Plt Count 89 L (150-400) K/uL Neut % (Auto) 25.1 L (48.0-80.0) % Lymph % (Auto) 63.3 H (16.0-40.0) % O'Brien % (Auto) 7.8 (0.0-15.0) % Eos % (Auto) 3.3 (0.0-7.0) % Baso % (Auto) 0.5 (0.0-1.5) % Neut # (Auto) 1.0 L (1.4-5.7) K/uL Lymph # (Auto) 2.5 H (0.6-2.4) K/uL O'Brien # (Auto) 0.3 (0.0-0.8) K/uL Eos # (Auto) 0.1 (0.0-0.7) K/uL Baso # (Auto) 0.0 (0.0-0.1) K/uL Nucleated RBC % 0.0 /100WBC Nucleated RBCs # 0 K/uL Sodium 146 (136-148) mmol/L Potassium 3.5 (3.5-5.1) mmol/L Chloride 107 (98-107) mmol/L Carbon Dioxide 28.7 (21.0-32.0) mmol/L BUN 11 (7.0-18.0) mg/dL Creatinine 1.4 H (0.8-1.3) mg/dL Est Cr Clr Drug Dosing 68.99 mL/min Estimated GFR (MDRD) > 60.0 ml/min Glucose 105 (74-106) mg/dL Calcium 8.4 L (8.5-10.1) mg/dL Total Bilirubin 0.8 (0.2-1.0) mg/dL AST 38 H (15-37) IU/L ALT 41 (14-63) IU/L Alkaline Phosphatase 78 (46-116) U/L Total Protein 8.1 (6.4-8.2) g/dL Albumin 3.4 (3.4-5.0) g/dL Globulin 4.7 H (2.6-4.0) g/dL Albumin/Globulin Ratio 0.7 L (0.9-1.6) Amylase 87 (25-115) U/L Lipase 119 (73-393) U/L Meds: Medications Generic Name Dose Route Start Last Admin Trade Name Freq PRN Reason Stop Dose Admin Sodium Chloride 1,000 mls @ 999 mls/hr 04/13/19 04:08 04/13/19 04:19 Normal Saline IV 04/13/19 05:08 999 mls/hr STAT ONE Administration Sodium Chloride 10 ml 04/13/19 04:08 Saline Flush FLUSH ASDIRECTED PRN Keep Vein Open Sodium Chloride 2.5 ml 04/13/19 04:08 Saline Flush FLUSH ASDIRECTED PRN Keep Vein Open Discontinued Medications Generic Name Dose Route Start Last Admin Trade Name Freq PRN Reason Stop Dose Admin Ketorolac Tromethamine 30 mg 04/13/19 04:08 04/13/19 04:19 Toradol IVPUSH 04/13/19 04:09 30 mg ONETIME ONE Administration Ondansetron HCl 4 mg 04/13/19 04:08 04/13/19 04:19 Zofran IVPUSH 04/13/19 04:09 4 mg ONETIME ONE Administration Departure - Departure Time of Disposition: 05:01 Disposition: Home, Self-Care 01 Condition: Good Clinical Impression: Biliary colic Abdominal pain Qualifiers: Abdominal location: right upper quadrant Qualified Code(s): R10.11 - Right upper quadrant pain - Discharge Information Referrals: PCP,None [Primary Care Provider] - Additional Instructions: The following information is given to patients seen in the emergency department who are being discharged to home. This information is to outline your options for follow-up care. We provide all patients seen in our emergency department with a follow-up referral. The need for follow-up, as well as the timing and circumstances, are variable depending upon the specifics of your emergency department visit. If you don't have a primary care physician on staff, we will provide you with a referral. We always advise you to contact your personal physician following an emergency department visit to inform them of the circumstance of the visit and for follow-up with them and/or the need for any referrals to a consulting specialist. The emergency department will also refer you to a specialist when appropriate. This referral assures that you have the opportunity for followup care with a specialist. All of these measure are taken in an effort to provide you with optimal care, which includes your followup. Under all circumstances we always encourage you to contact your private physician who remains a resource for coordinating your care. When calling for followup care, please make the office aware that this follow-up is from your recent emergency room visit. If for any reason you are refused follow-up, please contact the [facility] emergency department at and ask to speak to the emergency department charge nurse. [facility] Primary care- Internal Medicine and Family [address] [address] Please try to avoid fatty foods as we discussed including good fats as this may trigger more pain and nausea. Use Zofran you have been prescribed for nausea and vomiting as well as the Levsin for discomfort. Please call this morning and schedule a follow-up with the family practice clinic making sure to tell them that your name is on the expedited follow-up and that you were seen in the ED this morning. Return to ER as needed and as discussed Sepsis Event Note - Focused Exam Vital Signs: Vital Signs Temp Pulse Resp BP Pulse Ox 04/13/19 03:50 36.3 C 57 L 18 124/94 H 98 Date Exam was Performed: 04/13/19 Time Exam was Performed: 04:58 - My Orders Last 24 Hours: My Active Orders 04/13/19 04:08 Sodium Chloride 0.9% [Normal Saline] 1,000 ml IV STAT Sodium Chloride 0.9% [Saline Flush] 10 ml FLUSH ASDIRECTED PRN Sodium Chloride 0.9% [Saline Flush] 2.5 ml FLUSH ASDIRECTED PRN Saline Lock Insert [OM.PC] Stat - Assessment/Plan Last 24 Hours: My Active Orders 04/13/19 04:08 Sodium Chloride 0.9% [Normal Saline] 1,000 ml IV STAT Sodium Chloride 0.9% [Saline Flush] 10 ml FLUSH ASDIRECTED PRN Sodium Chloride 0.9% [Saline Flush] 2.5 ml FLUSH ASDIRECTED PRN Saline Lock Insert [OM.PC] Stat
[2019-04-13] MEDS ORDERED: Sodium Chloride 0.9% 2.5 ML Syringe FLUSH PRN (04:08)
[2019-04-13] MEDS ORDERED: Sodium Chloride 0.9% 1,000 ML IV ONE (04:08)
[2019-04-13] MEDS ORDERED: Ondansetron 4 MG/2 ML SDV IVPUSH ONE (04:08)
[2019-04-13] MEDS ORDERED: Ketorolac 30 MG/ML SDV IVPUSH ONE (04:08)
[2019-04-13] MEDS ORDERED: Sodium Chloride 0.9% 10 ML Syringe FLUSH PRN (04:08)
[2019-04-13 04:50] LABS: BLOOD UREA NITROGEN,BUN 11 mg/dL (7.0-18.0); CARBON DIOXIDE,CO2 28.7 mmol/L (21.0-32.0); CHLORIDE,CL 107 mmol/L (98-107); GLUCOSE RANDOM 105 mg/dL (74-106); LIPASE 119 U/L (73-393); POTASSIUM,K 3.5 mmol/L (3.5-5.1); SODIUM,NA 146 mmol/L (136-148)
== END 2019-04-13 05:17 | disposition home or self-care (01) ==
LOC: MW.ED 03:48
DX: K80.50 Calculus of bile duct without cholangitis or cholecystitis without obstruction (principal)
CPT/HCPCS: 36415; 80053; 82150; 83690; 85025; 96361; 96374; 96375; 99284; J1885; J2405; J7030; 99283

== ENCOUNTER 2019-04-28 06:07 | Emergency (ER) | payer OTHER ==
--- NOTE | 2019-04-28 06:29 | EDM.PDOC ---
ED HPI GENERAL MEDICAL PROBLEM - General Chief Complaint: Abdominal Pain Stated Complaint: GALL BLADDER PAIN Time Seen by Provider: 04/28/19 06:17 Source of Information: Reports: Patient - History of Present Illness INITIAL COMMENTS - FREE TEXT/NARRATIVE: CC abdominal pain HPI: This is a 29-year-old male with right upper quadrant abdominal pain. Patient is HIV positive. He also claims to have sickle cell trait. Patient says that he has chronic pain but it got worse last night. He has had one episode of vomiting and no fever patient has chronic diarrhea. No hematemesis no melena. PMHX/PSHX: Sickle cell trait HIV-positive negative for surgeries Social History: Negative for tobacco, negative for alcohol, negative for street drugs or marijuana Family history: Hypertension ROS: see chart PE: VS afebrile vital signs stable General: No apparent distress Head: Atraumatic normocephalic no lumps bumps or bruises Eyes: EOMI PERRLA Ears: TMs intact no hemotympanum no signs of infection no mastoid tenderness Nose: No epistaxis nares patent no septal wall hematoma Throat: No pharyngeal erythema or exudate no tonsillar enlargement Neck: Supple, no cervical lymphadenopathy Chest wall: No point tenderness Heart: Regular rate and rhythm without murmur gallop or rub Lungs: Clear to auscultation and percussion without rales rhonchi or wheeze Abdomen: Upper quadrant tenderness without guarding rigidity or rebound normal bowel sounds no hepatomegaly no splenomegaly Neck: No spinal point tenderness full range of motion in all 6 directions Back: No spinal paraspinal or CVA tenderness Extremities: full rom through out. no effusions skin: Warm dry intact no rashes neurologic: cranial nerves II through XII intact. No focal motor or sensory deficits noted MDM: Differential diagnosis: ED course: Diagnosis: Disposition: Abdomen Pain Score (Numeric/FACES): 8 - Related Data Allergies Allergy/AdvReac Type Severity Reaction Status Date / Time No Known Allergies Allergy Verified 04/28/19 06:18 Home Meds: Home Meds . [No Known Home Meds] 04/13/19 [History] Past Medical History - Past Health History Medical/Surgical History: Denies Medical/Surgical History HEENT History: Reports: None Cardiovascular History: Reports: None Respiratory History: Reports: Asthma Gastrointestinal History: Reports: Cholelithiasis Genitourinary History: Reports: None Musculoskeletal History: Reports: None Neurological History: Reports: None Psychiatric History: Reports: Anxiety, Depression Endocrine/Metabolic History: Reports: None Insulin Pump Model and Charge Master Specialist: None Hematologic History: Reports: Sickle Cell Anemia Immunologic History: Reports: HIV Oncologic (Cancer) History: Reports: None Dermatologic History: Reports: None - Infectious Disease History Infectious Disease History: Reports: HIV-Human Immunodeficiency Virus - Past Surgical History Head Surgeries/Procedures: Reports: None HEENT Surgical History: Reports: Oral Surgery Respiratory Surgical History: Reports: None GI Surgical History: Reports: None Social & Family History - Family History Family Medical History: Noncontributory - Tobacco Use Smoking Status *Q: Never Smoker - Caffeine Use Caffeine Use: Reports: Soda - Recreational Drug Use Recreational Drug Use: No ED ROS GENERAL - Review of Systems Review Of Systems: Comprehensive ROS is negative, except as noted in HPI. ED EXAM, GI/ABD - Physical Exam Exam: See Below Text/Narrative:: see my h and P Course - Vital Signs Last Recorded V/S: Last Vital Signs Temp 36.4 C 04/28/19 06:15 Pulse 62 04/28/19 06:15 Resp 18 04/28/19 06:15 BP 135/92 H 04/28/19 06:15 Pulse Ox 98 04/28/19 06:15 - Orders/Labs/Meds Orders: Active Orders 24 hr Category Date Time Status UA W/JOVANI RFLX IF INDICATED [URIN] Stat Lab 04/28/19 06:22 Ordered Labs: Laboratory Tests 04/28/19 04/28/19 Range/Units 06:33 06:33 WBC 4.01 (4.0-11.0) K/uL RBC 4.76 (4.50-5.90) M/uL Hgb 13.3 (13.0-17.0) g/dL Hct 38.8 (38.0-50.0) % MCV 81.5 (80.0-98.0) fL MCH 27.9 (27.0-32.0) pg MCHC 34.3 (31.0-37.0) g/dL RDW Std Deviation 41.1 (28.0-62.0) fl RDW Coeff of Freddie 14 (11.0-15.0) % Plt Count 70 L (150-400) K/uL Neut % (Auto) 26.0 L (48.0-80.0) % Lymph % (Auto) 61.3 H (16.0-40.0) % Terry % (Auto) 6.0 (0.0-15.0) % Eos % (Auto) 6.2 (0.0-7.0) % Baso % (Auto) 0.5 (0.0-1.5) % Neut # (Auto) 1.0 L (1.4-5.7) K/uL Lymph # (Auto) 2.5 H (0.6-2.4) K/uL Terry # (Auto) 0.2 (0.0-0.8) K/uL Eos # (Auto) 0.3 (0.0-0.7) K/uL Baso # (Auto) 0.0 (0.0-0.1) K/uL Nucleated RBC % 0.0 /100WBC Nucleated RBCs # 0 K/uL Sodium 143 (136-148) mmol/L Potassium 3.9 (3.5-5.1) mmol/L Chloride 106 (98-107) mmol/L Carbon Dioxide 30.6 (21.0-32.0) mmol/L BUN 9 (7.0-18.0) mg/dL Creatinine 1.3 (0.8-1.3) mg/dL Est Cr Clr Drug Dosing 73.93 mL/min Estimated GFR (MDRD) > 60.0 ml/min Glucose 104 (74-106) mg/dL Calcium 9.5 (8.5-10.1) mg/dL Total Bilirubin 0.9 (0.2-1.0) mg/dL AST 31 (15-37) IU/L ALT 30 (14-63) IU/L Alkaline Phosphatase 85 (46-116) U/L Total Protein 8.9 H (6.4-8.2) g/dL Albumin 3.9 (3.4-5.0) g/dL Globulin 5.0 H (2.6-4.0) g/dL Albumin/Globulin Ratio 0.8 L (0.9-1.6) Lipase 178 (73-393) U/L Meds: Medications Discontinued Medications Generic Name Dose Route Start Last Admin Trade Name Freq PRN Reason Stop Dose Admin Ketorolac Tromethamine 15 mg 04/28/19 07:44 Toradol IVPUSH 04/28/19 07:45 ONETIME ONE Departure - Departure Time of Disposition: 07:56 Disposition: Home, Self-Care 01 Clinical Impression: Biliary colic - Discharge Information Instructions: Cholelithiasis Referrals: PCP,None [Primary Care Provider] - Forms: ED Department Discharge Additional Instructions: follow up with your surgeon. Avoid large meals and fatty food. Sepsis Event Note - Evaluation Sepsis Screening Result: No Definite Risk - Focused Exam Vital Signs: Vital Signs Temp Pulse Resp BP Pulse Ox 04/28/19 06:15 36.4 C 62 18 135/92 H 98 Date Exam was Performed: 04/28/19 Time Exam was Performed: 07:55 - My Orders Last 24 Hours: My Active Orders 04/28/19 06:22 UA W/JOVANI RFLX IF INDICATED [URIN] Stat - Assessment/Plan Last 24 Hours: My Active Orders 04/28/19 06:22 UA W/JOVANI RFLX IF INDICATED [URIN] Stat
[2019-04-28 07:05] LABS: BLOOD UREA NITROGEN,BUN 9 mg/dL (7.0-18.0); CARBON DIOXIDE,CO2 30.6 mmol/L (21.0-32.0); CHLORIDE,CL 106 mmol/L (98-107); GLUCOSE RANDOM 104 mg/dL (74-106); LIPASE 178 U/L (73-393); POTASSIUM,K 3.9 mmol/L (3.5-5.1); SODIUM,NA 143 mmol/L (136-148)
[2019-04-28] MEDS ORDERED: Ketorolac 15 MG/ML SDV IVPUSH ONE (07:44)
--- NOTE | 2019-04-28 07:51 | US ---
Limited abdominal ultrasound: Multiple real-time images of the upper right abdomen were obtained. Comparison: Previous right upper quadrant abdominal ultrasound of 04/01/19. Visualized portions of the pancreas appear within normal limits. Liver shows no focal abnormality. Sludge noted within gallbladder. No shadowing gallstones are seen. The amount of sludge as increased from previous exam. No gallbladder wall thickening or biliary duct dilatation is seen. Right kidney shows no hydronephrosis or mass. Right kidney length is 10.0 cm. Impression: 1. Non-shadowing sludge within the gallbladder. Amount of sludge has increased from previous exam. 2. No additional abnormality is seen on right upper quadrant abdominal ultrasound. Diagnostic code #3 Study was dictated in [place] Standard Time
== END 2019-04-28 08:14 | disposition home or self-care (01) ==
LOC: MW.ED 06:07
DX: K80.50 Calculus of bile duct without cholangitis or cholecystitis without obstruction (principal)
CPT/HCPCS: 36415; 76705; 76705-26; 80053; 83690; 85025; 99284-25

== ENCOUNTER 2023-04-16 09:53 | Emergency (ER) | payer SELFPAY ==
[2023-04-16] MEDS ORDERED: traMADol 50 MG Tab PO ONE (10:40)
== END 2023-04-16 11:03 | disposition home or self-care (01) ==
LOC: MW.ED 09:53
DX: M79.605 Pain in left leg (principal)
CPT/HCPCS: 99283

== ENCOUNTER 2023-05-11 13:35 | Emergency (ER) | payer SELFPAY ==
[2023-05-11 14:09] LABS: BASOPHILS ABSOLUTE AUTO 0.01 K/uL (0.00-0.20); BASOPHILS PERCENT AUTO 0.3 % (0.0-1.0); EOSINOPHILS ABSOLUTE AUTO 0.03 K/uL (0.00-0.45); HEMATOCRIT 39.6 % (42.0-52.0); HEMOGLOBIN 13.3 g/dL (14.0-18.0); LYMPHOCYTES ABSOLUTE AUTO 1.75 K/uL (1.00-4.80); LYMPHOCYTES PERCENT AUTO 60.6 % (24.0-44.0); MEAN CORPUSCULAR HEMOGLOBIN 30.1 pg (28.0-32.0); MEAN CORPUSCULAR HGB CONC 33.6 g/dL (32.0-36.0); MEAN CORPUSCULAR VOLUME 89.6 fL (83.0-99.0); MONOCYTES ABSOLUTE AUTO 0.21 K/uL (0.00-0.80); MONOCYTES PERCENT AUTO 7.3 % (0.0-8.0); NEUTROPHILS ABSOLUTE AUTO 0.89 K/uL (1.80-7.70); NEUTROPHILS PERCENT AUTO 30.8 % (41.0-71.0); PLATELET COUNT,PLT 103 K/uL (150-400); RED BLOOD CELL COUNT 4.42 M/uL (4.52-5.90); WHITE BLOOD CELL COUNT,WBC 2.89 K/uL (3.9-11.3)
[2023-05-11] MEDS: Sodium Chloride 0.9% 1,000 ML IV ONE ×2 (14:20→15:19)
[2023-05-11] MEDS: HYDROmorphone 1 MG/ML Syringe IVPUSH ONE (14:20)
[2023-05-11] MEDS: Ondansetron 4 MG/2 ML SDV IVPUSH ONE (14:20)
[2023-05-11 14:30] LABS: BILIRUBIN TOTAL 1.9 mg/dL (0.2-1.0); C-REACTIVE PROTEIN 0.18 mg/dL (<0.3); CALCIUM 8.5 mg/dL (8.5-10.1); CARBON DIOXIDE,CO2 24.4 mmol/L (21.0-32.0); CREATININE 1.4 mg/dL (0.8-1.3); EST CRCL DRUG DOSING (CG) 63.76 mL/min; MAGNESIUM 1.8 mg/dL (1.8-2.4); POTASSIUM,K 4.3 mmol/L (3.5-5.1)
[2023-05-11 14:48] LABS: CORONAVIRUS COVID-19 NAA NEGATIVE (NEGATIVE); INFLUENZA A NAA NEGATIVE (NEGATIVE); INFLUENZA B NAA NEGATIVE (NEGATIVE)
[2023-05-11] MEDS: droPERidol 5 MG/2 ML SDV IVPUSH ONE (15:29)
[2023-05-11] MEDS: metroNIDAZOLE 250 MG Tab PO ONE (17:40)
[2023-05-11] MEDS: Ciprofloxacin 500 MG Tab PO ONE (17:41)
[2023-05-11] MEDS: Iopamidol 755 Mg/ML 100 ML Bottle IVPUSH STA (19:15)
[2023-05-16 05:07] LABS: HIV-1 QNT BY NAAT INTERP Detected (Not Detected); HIV-1 QNT NAAT LOG COPIES/ML <1.47 log cpy/mL
== END 2023-05-11 17:48 | disposition home or self-care (01) ==
LOC: MW.ED 13:35
DX: R19.7 Diarrhea, unspecified (principal); Z79.899 Other long term (current) drug therapy; Z88.8 Allergy status to other drugs, medicaments and biological substances
CPT/HCPCS: 0240U; 36415; 74177; 80053; 83690; 83735; 85025; 86140; 86361; 87040; 87045; 87046; 87324; 87338; 87449; 87536; 87899; 96361; 96374; 96375; 99285; A9270; J1170; J1790; J2405; J7030; Q9967; 99284

== ENCOUNTER 2023-07-29 18:19 | Emergency (ER) | payer SELFPAY ==
[2023-07-29] MEDS: Ketorolac 30 MG/ML SDV IVPUSH ONE (19:02)
[2023-07-29] MEDS: Ondansetron 4 MG/2 ML SDV IVPUSH ONE (19:02)
[2023-07-29] MEDS: Sodium Chloride 0.9% 1,000 ML IV ONE (19:03)
[2023-07-29 19:15] LABS: HEMATOCRIT 35.1 % (42.0-52.0); HEMOGLOBIN 11.9 g/dL (14.0-18.0); MEAN CORPUSCULAR HEMOGLOBIN 29.2 pg (28.0-32.0); MEAN CORPUSCULAR HGB CONC 33.9 g/dL (32.0-36.0); MEAN CORPUSCULAR VOLUME 86.2 fL (83.0-99.0); MEAN PLATELET VOLUME 14.4 fL (9.4-12.4); PLATELET COUNT,PLT 80 K/uL (150-400); RED BLOOD CELL COUNT 4.07 M/uL (4.52-5.90); WHITE BLOOD CELL COUNT,WBC 3.51 K/uL (3.9-11.3)
[2023-07-29 19:34] LABS: ALBUMIN 3.9 g/dL (3.4-5.0); BILIRUBIN TOTAL 3.2 mg/dL (0.2-1.0); CALCIUM 9.1 mg/dL (8.5-10.1); CARBON DIOXIDE,CO2 25.7 mmol/L (21.0-32.0); CREATININE 1.4 mg/dL (0.8-1.3); EST CRCL DRUG DOSING (CG) 66.22 mL/min; POTASSIUM,K 3.8 mmol/L (3.5-5.1); PROTEIN TOTAL,TP 8.5 g/dL (6.4-8.2)
[2023-07-29 19:37] LABS: A/G RATIO 0.9 (0.9-1.6)
[2023-07-29 19:53] LABS: BASOPHILS PERCENT MAN 0 % (0-1); EOSINOPHILS ABSOLUTE MAN 0.07 K/uL (0.00-0.45); EOSINOPHILS PERCENT MAN 2 % (0-6); LYMPHOCYTES ABSOLUTE MAN 1.72 K/uL (1.00-4.80); LYMPHOCYTES PERCENT MAN 49 % (24-44); MONOCYTES ABSOLUTE MAN 0.11 K/uL (0.00-0.80); MONOCYTES PERCENT MAN 3 % (0-8); SEG NEUTROPHILS ABSOLUTE MAN 1.61 K/uL (1.80-7.70); SEG NEUTROPHILS PERCENT MAN 46 % (41-71)
== END 2023-07-29 19:58 | disposition left against medical advice (07) ==
LOC: MW.ED 18:19
DX: K52.9 Noninfective gastroenteritis and colitis, unspecified (principal); Z91.148 Patient's other noncompliance with medication regimen for other reason; Z53.29 Procedure and treatment not carried out because of patient's decision for other reasons; J45.909 Unspecified asthma, uncomplicated; Z86.19 Personal history of other infectious and parasitic diseases; Z75.8 Other problems related to medical facilities and other health care; Z88.5 Allergy status to narcotic agent; Z79.899 Other long term (current) drug therapy
CPT/HCPCS: 36415; 80053; 83690; 85025; 96361; 96374; 96375; 99284; J1885; J2405; J7030

== ENCOUNTER 2023-08-19 17:54 | Emergency (ER) | payer SELFPAY | END 2023-08-19 18:17 | disposition left against medical advice (07) | LOC: MW.ED 17:54 | DX: Z53.21 Procedure and treatment not carried out due to patient leaving prior to being seen by health care provider (principal) ==

== ENCOUNTER 2023-09-04 12:29 | Emergency (ER) | payer SELFPAY ==
[2023-09-04] MEDS: Dicyclomine 10 MG Cap PO ONE (13:42)
[2023-09-04] MEDS: Sodium Chloride 0.9% 1,000 ML IV ONE (13:42)
[2023-09-04] MEDS: Famotidine 20 MG/2 ML SDV IVPUSH ONE (13:42)
[2023-09-04] MEDS: Ondansetron 4 MG/2 ML SDV IVPUSH ONE (13:42)
[2023-09-04] MEDS: Sodium Chloride 0.9% 10 ML Syringe FLUSH PRN (13:43)
[2023-09-04] MEDS: Sodium Chloride 0.9% 2.5 ML Syringe FLUSH PRN (13:43)
[2023-09-04 13:44] LABS: HEMATOCRIT 34.6 % (42.0-52.0); HEMOGLOBIN 11.6 g/dL (14.0-18.0); MEAN CORPUSCULAR HEMOGLOBIN 29.8 pg (28.0-32.0); MEAN CORPUSCULAR HGB CONC 33.5 g/dL (32.0-36.0); MEAN CORPUSCULAR VOLUME 88.9 fL (83.0-99.0); MEAN PLATELET VOLUME 13.2 fL (9.4-12.4); PLATELET COUNT,PLT 83 K/uL (150-400); RED BLOOD CELL COUNT 3.89 M/uL (4.52-5.90)
[2023-09-04 14:06] LABS: A/G RATIO 0.8 (0.9-1.6); ALBUMIN 3.4 g/dL (3.4-5.0); BILIRUBIN TOTAL 1.6 mg/dL (0.2-1.0); CALCIUM 8.5 mg/dL (8.5-10.1); CARBON DIOXIDE,CO2 27.9 mmol/L (21.0-32.0); CREATININE 1.3 mg/dL (0.8-1.3); EST CRCL DRUG DOSING (CG) 69.73 mL/min; MAGNESIUM 1.7 mg/dL (1.8-2.4); POTASSIUM,K 3.9 mmol/L (3.5-5.1); PROTEIN TOTAL,TP 7.5 g/dL (6.4-8.2)
[2023-09-04 14:11] LABS: LYMPHOCYTES ABSOLUTE MAN 2.22 K/uL (1.00-4.80); LYMPHOCYTES PERCENT MAN 57 % (24-44); MONOCYTES ABSOLUTE MAN 0.16 K/uL (0.00-0.80); MONOCYTES PERCENT MAN 4 % (0-8); SEG NEUTROPHILS PERCENT MAN 36 % (41-71)
[2023-09-04 14:12] LABS: EOSINOPHILS ABSOLUTE MAN 0.12 K/uL (0.00-0.45); EOSINOPHILS PERCENT MAN 3 % (0-6)
== END 2023-09-04 15:00 | disposition home or self-care (01) ==
LOC: MW.ED 12:29
DX: K29.70 Gastritis, unspecified, without bleeding (principal); B20 Human immunodeficiency virus [HIV] disease; Z88.5 Allergy status to narcotic agent; Z79.899 Other long term (current) drug therapy; Z75.8 Other problems related to medical facilities and other health care
CPT/HCPCS: 36415; 80053; 83690; 83735; 85025; 96361; 96374; 96375; 99284; A9270; J2405; J3490; J7030

== ENCOUNTER 2023-11-20 11:25 | Emergency (ER) | payer SELFPAY ==
[2023-11-20 12:15] LABS: BASOPHILS ABSOLUTE AUTO 0.01 K/uL (0.00-0.20); BASOPHILS PERCENT AUTO 0.3 % (0.0-1.0); EOSINOPHILS ABSOLUTE AUTO 0.16 K/uL (0.00-0.45); EOSINOPHILS PERCENT AUTO 4.6 % (0.0-6.0); HEMATOCRIT 36.4 % (42.0-52.0); MEAN CORPUSCULAR HEMOGLOBIN 29.1 pg (28.0-32.0); MEAN CORPUSCULAR VOLUME 88.1 fL (83.0-99.0); MEAN PLATELET VOLUME 13.4 fL (9.4-12.4); MONOCYTES ABSOLUTE AUTO 0.16 K/uL (0.00-0.80); MONOCYTES PERCENT AUTO 4.6 % (0.0-8.0); NEUTROPHILS ABSOLUTE AUTO 1.12 K/uL (1.80-7.70); NEUTROPHILS PERCENT AUTO 32.5 % (41.0-71.0); RED BLOOD CELL COUNT 4.13 M/uL (4.52-5.90); WHITE BLOOD CELL COUNT,WBC 3.45 K/uL (3.9-11.3)
[2023-11-20 12:29] LABS: INR 1.06 (0.86-1.11)
[2023-11-20 12:33] LABS: PLATELET COUNT,PLT 73 K/uL (150-400)
[2023-11-20 12:37] LABS: A/G RATIO 0.9 (0.9-1.6); ALBUMIN 3.7 g/dL (3.4-5.0); BILIRUBIN TOTAL 1.1 mg/dL (0.2-1.0); CARBON DIOXIDE,CO2 32.6 mmol/L (21.0-32.0); CREATININE 1.2 mg/dL (0.8-1.3); EST CRCL DRUG DOSING (CG) 77.59 mL/min; POTASSIUM,K 4.4 mmol/L (3.5-5.1); PROTEIN TOTAL,TP 7.7 g/dL (6.4-8.2)
== END 2023-11-20 13:45 | disposition home or self-care (01) ==
LOC: MW.ED 11:25
DX: D61.818 Other pancytopenia (principal); Z88.5 Allergy status to narcotic agent; Z91.018 Allergy to other foods; Z90.49 Acquired absence of other specified parts of digestive tract; Z75.8 Other problems related to medical facilities and other health care
CPT/HCPCS: 36415; 80053; 82550; 83690; 85025; 85610; 99283

== ENCOUNTER 2023-12-04 12:41 | Emergency (ER) | payer SELFPAY | END 2023-12-04 16:37 | disposition home or self-care (01) | LOC: MW.ED 12:41 | DX: M79.604 Pain in right leg (principal); J45.909 Unspecified asthma, uncomplicated; Z90.49 Acquired absence of other specified parts of digestive tract; Z88.5 Allergy status to narcotic agent; Z91.018 Allergy to other foods; Z75.8 Other problems related to medical facilities and other health care | CPT/HCPCS: 73590-26-RT; 73590-RT; 73610-26-RT; 73610-RT; 99283 ==

== ENCOUNTER 2024-10-11 13:02 | Emergency (ER) | payer SELFPAY | END 2024-10-11 14:24 | disposition left against medical advice (07) | LOC: MW.ED 13:02 | DX: Z53.21 Procedure and treatment not carried out due to patient leaving prior to being seen by health care provider (principal) ==